=== PATIENT | male | born 1975 | race Caucasian/White ===

== ENCOUNTER 2019-03-06 13:39 | Inpatient (IN) | payer SELFPAY ==
[2019-03-06] MEDS ORDERED: LORazepam 2 MG/ML SDV ONE ×9 (13:42→14:53)
[2019-03-06] MEDS ORDERED: levETIRAcetam 1,000 MG in Sodium Chloride 0.9% 100 ML IV ONE (13:58)
[2019-03-06] MEDS ORDERED: levETIRAcetam 1,500 MG in Sodium Chloride 0.9% 100 ML IV ONE (14:01)
[2019-03-06] MEDS ORDERED: levETIRAcetam 500 MG/5 ML SDV ONE (14:02)
[2019-03-06] MEDS ORDERED: fentaNYL 100 MCG/2 ML SDV ONE (14:19)
--- NOTE | 2019-03-06 14:53 | PCM.PREANE ---
Preanesthetic Assessment - Procedure Proposed Procedure: intubation - Anesthesia/Transfusion/Family Hx Anesthesia History: Unknown Type of Anesthesia Reaction: Unknown Family History of Anesthesia Reaction: No (per family at bedside) Intubation History: Unknown - Review of Systems General: Other (unknown) Pulmonary: No Symptoms Cardiovascular: No Symptoms Gastrointestinal: Other (unknown) Neurological: No Symptoms, Seizure (history) Other: Reports: None (from family ) - Physical Assessment Vital Signs: Last Vital Signs Temp 36.9 C 03/06/19 13:52 Pulse 87 03/06/19 13:52 Resp 18 03/06/19 13:52 BP 149/117 H 03/06/19 13:52 Pulse Ox 88 L 03/06/19 13:52 Height: 1.83 m Weight: 90 kg ASA Class: 3E Mental Status: Other (unresponsive) Dentition: Reports: Normal Dentition (per family ) Thyro-Mental Finger Breadths: 3 Mouth Opening Finger Breadths: 0 Lungs: Clear to Auscultation, Normal Respiratory Effort Cardiovascular: Regular Rate, Regular Rhythm - Lab Values: Laboratory Last Values WBC 7.24 K/mm3 (4.23-9.07) 03/06/19 14:10 RBC 4.16 M/mm3 (4.63-6.08) L 03/06/19 14:10 Hgb 13.6 gm/L (13.7-17.5) L 03/06/19 14:10 Hct 37.3 % (40.1-51.0) L 03/06/19 14:10 MCV 89.7 fl (79.0-92.2) 03/06/19 14:10 MCH 32.7 pg (25.7-32.2) H 03/06/19 14:10 MCHC 36.5 g/dl (32.2-35.5) H 03/06/19 14:10 RDW Std Deviation 38.6 fL (35.1-43.9) 03/06/19 14:10 Plt Count 69 K/mm3 (163-337) L 03/06/19 14:10 MPV 11.0 fl (9.4-12.3) 03/06/19 14:10 Neutrophils % (Manual) 66 % (40-60) H 03/06/19 14:10 Band Neutrophils % 0 % (0-10) 03/06/19 14:10 Lymphocytes % (Manual) 13 % (20-40) L 03/06/19 14:10 Atypical Lymphs % 0 % 03/06/19 14:10 Monocytes % (Manual) 20 % (2-10) H 03/06/19 14:10 Eosinophils % (Manual) 1 % (0.8-7.0) 03/06/19 14:10 Basophils % (Manual) 0 (0.2-1.2) L 03/06/19 14:10 Platelet Estimate Decreased 03/06/19 14:10 Poikilocytosis 1+ slight 03/06/19 14:10 Anisocytosis 1+ slight 03/06/19 14:10 RBC Morph Comment contact person 03/06/19 14:10 PT 12.3 SECONDS (9.7-12.0) H 03/06/19 14:10 INR 1.14 03/06/19 14:10 - Blood Blood Available: No - Anesthesia Plan Pre-Op Medication Ordered: None - Acknowledgements Anesthesia Type Planned: General Anesthesia Pt an Appropriate Candidate for the Planned Anesthesia: Yes Alternatives and Risks of Anesthesia Discussed w Pt/Guardian: Yes Pt/Guardian Understands and Agrees with Anesthesia Plan: Yes PreAnesthesia Questionnaire - CURRENT (IN HOUSE) MEDS Current Meds: Current Medications Discontinued Medications Fentanyl (Sublimaze) Confirm Administered Dose 100 mcg .ROUTE .STK-MED ONE Stop: 03/06/19 14:20 Levetiracetam 1,000 mg/ Sodium (Chloride) 110 mls @ 400 mls/hr IV ONETIME ONE Stop: 03/06/19 14:12 Levetiracetam 1,500 mg/ Sodium (Chloride) 115 mls @ 400 mls/hr IV ONETIME ONE Stop: 03/06/19 14:15 Fosphenytoin Sodium 160 mg.pe/ (Sodium Chloride) 53.2 mls @ 200 mls/hr IV NOW ONE Stop: 03/06/19 14:32 Propofol (Diprivan 100 Ml) Confirm Administered Dose 100 mls @ as directed .ROUTE .STK-MED ONE Stop: 03/06/19 14:16 Levetiracetam (Keppra) Confirm Administered Dose 500 mg .ROUTE .STK-MED ONE Stop: 03/06/19 14:03 Lorazepam (Ativan) Confirm Administered Dose 2 mg .ROUTE .STK-MED ONE Stop: 03/06/19 13:49 Lorazepam (Ativan) Confirm Administered Dose 2 mg .ROUTE .STK-MED ONE Stop: 03/06/19 13:53 Lorazepam (Ativan) Confirm Administered Dose 2 mg .ROUTE .STK-MED ONE Stop: 03/06/19 14:20 Lorazepam (Ativan) Confirm Administered Dose 2 mg .ROUTE .STK-MED ONE Stop: 03/06/19 14:27
[2019-03-06] MEDS ORDERED: Propofol 200 MG/20 ML SDV ONE ×2 (14:58→16:00)
[2019-03-06] MEDS ORDERED: Propofol 1,000 MG/100 ML SDV ONE (15:19)
--- NOTE | 2019-03-06 15:51 | CT ---
Head CT Technique: Multiple axial sections through the brain were obtained. Intravenous contrast was not utilized. Comparison: No prior intracranial imaging is available. Findings: Ventricles along with basal cisterns and sulci over convexities are moderately prominent which are more prominent than usually seen in the patient's of this age. No evidence of intracranial hemorrhage. No midline shift or mass effect is seen. Bone window settings were reviewed which shows a small amount of fluid within the left maxillary sinus. Small retention cyst is noted within the right maxillary sinus measuring 6 mm. Mild to moderate mucosal thickening is seen within the ethmoid sinuses. Increased soft tissue density is noted within both nasal cavities compatible with recent nasogastric tube insertion. No acute calvarial abnormality is seen. Impression: 1. Fluid within the left maxillary sinus as well as soft tissue density within the nasal cavity most likely representing change from recent nasogastric tube insertion. 2. Mucosal thickening within the ethmoids sinus as well as small retention cyst within the right maxillary sinus most likely representing changes of chronic sinusitis. 3. Atrophy which is more prominent than usually seen in a patient of this age, given the patient's history this is compatible with chronic alcohol abuse. 4. No acute intracranial abnormality is identified. No acute calvarial abnormality is seen. Diagnostic code #2
[2019-03-06] MEDS ORDERED: Lidocaine 1% 2 ML SDV ONE (16:00)
[2019-03-06] MEDS ORDERED: Succinylcholine 200 MG/10 ML MDV ONE (16:00)
[2019-03-06] MEDS ORDERED: Lactated Ringers 1,000 ML IV ONE (16:30)
--- NOTE | 2019-03-06 16:43 | EDM.PDOC ---
ED HPI GENERAL MEDICAL PROBLEM - General Chief Complaint: Drug or Alcohol Abuse Stated Complaint: [facility] Time Seen by Provider: 03/06/19 13:39 Source of Information: Reports: EMS, Family History Limitations: Reports: Other (Actively seizing or intubated) - History of Present Illness INITIAL COMMENTS - FREE TEXT/NARRATIVE: 43-year-old male brought in to the emergency room by EMS having seizures. This started 15-20 minutes prior to arriving in the emergency room. EMS arrived he was seizing they gave him a milligram of Ativan which controlled his seizures briefly about the time he arrived to the emergency room he started actively seizing again. Patient has a long history of heavy alcohol use and abuse and has had seizures in the past while not drinking. He also has a history of childhood seizures. Apparently the patient stopped drinking on Thursday. His from [place] dropped him off at his parents house here in [place]. - Related Data Allergies Allergy/AdvReac Type Severity Reaction Status Date / Time No Known Allergies Allergy Verified 03/06/19 16:18 Home Meds: Home Meds . [No Known Home Meds] 03/06/19 [History] Past Medical History Neurological History: Reports: Seizure Psychiatric History: Reports: Addiction Social & Family History - Family History Family Medical History: Noncontributory - Tobacco Use Smoking Status *Q: Current Every Day Smoker Years of Tobacco use: 22 Packs/Tins Daily: 1 - Caffeine Use Caffeine Use: Reports: Coffee, Soda - Alcohol Use Days Per Week of Alcohol Use: 7 Number of Drinks Per Day: 7 Total Drinks Per Week: 49 - Recreational Drug Use Recreational Drug Use: No ED ROS GENERAL - Review of Systems Review Of Systems: Unable To Obtain - Physical Exam Exam: See Below Exam Limited By: Other (Actively seizing) General Appearance: Other (Generalized tonic-clonic seizures) Eye Exam: Bilateral Eye: Other (Pupils perhaps a little smaller than would expect comprehensive eye exam could not be performed) Ears: Normal External Exam, Normal Canal, Normal TMs Nose: Normal Inspection, Normal Mucosa, No Blood Throat/Mouth: Other (Difficult to do with him actively seizing cannot open his mouth he stopped seizing when he was intubated at that point no gross abnormalities noted) Head Exam: Atraumatic, Normocephalic Neck: Normal Inspection, Supple, Non-Tender, Full Range of Motion. No: Lymphadenopathy (L), Lymphadenopathy (R) Respiratory/Chest: No Respiratory Distress, Lungs Clear, Normal Breath Sounds Cardiovascular: Regular Rate, Rhythm, No Edema GI/Abdominal: Normal Bowel Sounds, Soft. No: Rigid Neuro Exam (Abbreviated): Other (To do actively seizing or intubated) Back Exam: Normal Inspection Extremities: Normal Inspection, No Pedal Edema Skin Exam: Warm, Dry, Intact Course - Vital Signs Last Recorded V/S: Last Vital Signs Temp 36.9 C 03/06/19 13:52 Pulse 87 03/06/19 13:52 Resp 18 03/06/19 13:52 BP 149/117 H 03/06/19 13:52 Pulse Ox 88 L 03/06/19 13:52 - Orders/Labs/Meds Orders: Active Orders 24 hr Category Date Time Status RT Ventilator ED, Adult [RC] ASDIRECTED Care 03/06/19 16:24 Active Chest 1V Frontal [CR] Stat Exams 03/06/19 14:24 Taken Medication Orders Albuterol/Ipratropium (Duoneb 3.0-0.5 Mg/3 Ml) 3 ml NEB Q4H PRN PRN Reason: Shortness Of Breath/wheezing Bisacodyl (Dulcolax) 5 mg PO DAILY PRN PRN Reason: Constipation Dextrose/Water (Dextrose 50% In Water) 50 ml IVPUSH ASDIRECTED PRN PRN Reason: Hypoglycemia Docusate Sodium (Colace) 100 mg PO BID PRN PRN Reason: Constipation Hydromorphone HCl (Dilaudid) 0.5 mg IVPUSH Q2H PRN PRN Reason: Pain (severe 7-10) Promethazine HCl 6.25 mg/ (Sodium Chloride) 50.25 mls @ 100 mls/hr IV Q6H PRN PRN Reason: Nausea/Vomiting Potassium Chloride 10 meq/ (Premix) 100 mls @ 100 mls/hr IV Q1H [facility] Stop: 03/06/19 23:59 Potassium Chloride/Dextrose/Sod Cl (D5 Ns With 20 Meq Kcl) 1,000 mls @ 125 mls/ hr IV ASDIRECTED [facility] Last Admin: 03/06/19 18:33 Dose: 125 mls/hr Piperacillin Sod/Tazobactam (Sod 4.5 gm/ Sodium Chloride) 100 mls @ 25 mls/hr IV Q8H [facility] Levofloxacin/Dextrose 750 mg/ (Premix) 150 mls @ 100 mls/hr IV Q24H [facility] Midazolam HCl 50 mg/ Sodium (Chloride) 50 mls @ 1 mls/hr IV TITRATE [facility]; Protocol Propofol (Diprivan 100 Ml) 100 mls @ 20 mls/hr IV TITRATE [facility]; Protocol Ibuprofen (Motrin) 600 mg PO Q6H PRN PRN Reason: Pain (moderate 4-6) Insulin Human Lispro (Humalog) 0 unit SUBCUT Q6H [facility]; Protocol Levetiracetam (Keppra) 500 mg PO BID [facility] Miscellaneous Information (Remove Patch) 1 ea TRDERM DAILY [facility] Nicotine (Habitrol) 21 mg TRDERM DAILY [facility] Ondansetron HCl (Zofran) 4 mg IV Q6H PRN PRN Reason: Nausea/Vomiting Pantoprazole Sodium (Protonix Iv) 40 mg IV Q12HR [facility] Polyethylene Glycol (Miralax) 17 gm PO DAILY PRN PRN Reason: Constipation Senna/Docusate Sodium (Senna Plus) 1 tab PO BID PRN PRN Reason: Constipation Labs: Laboratory Tests 03/06/19 03/06/19 03/06/19 Range/Units 14:10 14:10 14:10 WBC 7.24 (4.23-9.07) K/mm3 RBC 4.16 L (4.63-6.08) M/mm3 Hgb 13.6 L (13.7-17.5) gm/L Hct 37.3 L (40.1-51.0) % MCV 89.7 (79.0-92.2) fl MCH 32.7 H (25.7-32.2) pg MCHC 36.5 H (32.2-35.5) g/dl RDW Std Deviation 38.6 (35.1-43.9) fL Plt Count 69 L (163-337) K/mm3 MPV 11.0 (9.4-12.3) fl Neutrophils % (Manual) 66 H (40-60) % Band Neutrophils % 0 (0-10) % Lymphocytes % (Manual) 13 L (20-40) % Atypical Lymphs % 0 % Monocytes % (Manual) 20 H (2-10) % Eosinophils % (Manual) 1 (0.8-7.0) % Basophils % (Manual) 0 L (0.2-1.2) Platelet Estimate Decreased Poikilocytosis 1+ slight Anisocytosis 1+ slight RBC Morph Comment telecom sales consultant PT 12.3 H (9.7-12.0) SECONDS INR 1.14 Puncture Site ABG pH (7.35-7.45) ABG pCO2 (35.0-45.0) mmHg ABG pO2 (80.0-100.0) mmHg ABG HCO3 (22.0-26.0) meq/L ABG O2 Saturation (96.0-97.0) % ABG Base Excess (-2-2.0) A-a Gradient mmHg O2 Delivery Device FiO2 (21.00-100.00) % Tidal Volume cc PEEP cmH20 Sodium 122 L (136-145) mEq/L Potassium 2.5 L (3.5-5.1) mEq/L Chloride 80 L (98-107) mEq/L Carbon Dioxide 39 H (21-32) mEq/L Anion Gap 5.5 (5-15) BUN 7 (7-18) mg/dL Creatinine 0.9 (0.7-1.3) mg/dL Est Cr Clr Drug Dosing 117.36 mL/min Estimated GFR (MDRD) > 60 (>60) mL/min BUN/Creatinine Ratio 7.8 L (14-18) Glucose 91 (74-106) mg/dL Calcium 8.1 L (8.5-10.1) mg/dL Magnesium (1.8-2.4) mg/dl Total Bilirubin 1.5 H (0.2-1.0) mg/dL AST 67 H (15-37) U/L ALT 67 H (16-63) U/L Alkaline Phosphatase 68 (46-116) U/L Total Protein 6.7 (6.4-8.2) g/dl Albumin 3.0 L (3.4-5.0) g/dl Globulin 3.7 gm/dL Albumin/Globulin Ratio 0.8 L (1-2) Urine Opiates Screen (UWHLJS=286) Ur Buprenorphine Scrn (CUTOFF=10) Ur Oxycodone Screen (EAC6CH=338) Urine Methadone Screen (OMA6NI=909) Ur Propoxyphene Screen (XJOFDC=641) Ur Barbiturates Screen (FPQKPU=058) Ur Tricyclics Screen (HGLYCE=807) Ur Phencyclidine Scrn (CUTOFF=25) Ur Amphetamine Screen (VEZVAJ=024) U Methamphetamines Scrn (JOCMXQ=962) U Benzodiazepines Scrn (KJQCJJ=534) U Cocaine Metab Screen (DUDIIC=730) U Marijuana (THC) Screen (CUTOFF=50) Ethyl Alcohol 0.00 (0.00) gm% 03/06/19 03/06/19 03/06/19 Range/Units 14:10 15:00 15:00 WBC (4.23-9.07) K/mm3 RBC (4.63-6.08) M/mm3 Hgb (13.7-17.5) gm/L Hct (40.1-51.0) % MCV (79.0-92.2) fl MCH (25.7-32.2) pg MCHC (32.2-35.5) g/dl RDW Std Deviation (35.1-43.9) fL Plt Count (163-337) K/mm3 MPV (9.4-12.3) fl Neutrophils % (Manual) (40-60) % Band Neutrophils % (0-10) % Lymphocytes % (Manual) (20-40) % Atypical Lymphs % % Monocytes % (Manual) (2-10) % Eosinophils % (Manual) (0.8-7.0) % Basophils % (Manual) (0.2-1.2) Platelet Estimate Poikilocytosis Anisocytosis RBC Morph Comment PT (9.7-12.0) SECONDS INR Puncture Site Rt radial ABG pH 7.45 (7.35-7.45) ABG pCO2 53.2 H (35.0-45.0) mmHg ABG pO2 252.0 H* (80.0-100.0) mmHg ABG HCO3 36.1 H (22.0-26.0) meq/L ABG O2 Saturation 99.5 H (96.0-97.0) % ABG Base Excess 10.6 H (-2-2.0) A-a Gradient 110 mmHg O2 Delivery Device Ventilator FiO2 60.00 (21.00-100.00) % Tidal Volume 500.0 cc PEEP 5.0 cmH20 Sodium (136-145) mEq/L Potassium (3.5-5.1) mEq/L Chloride (98-107) mEq/L Carbon Dioxide (21-32) mEq/L Anion Gap (5-15) BUN (7-18) mg/dL Creatinine (0.7-1.3) mg/dL Est Cr Clr Drug Dosing mL/min Estimated GFR (MDRD) (>60) mL/min BUN/Creatinine Ratio (14-18) Glucose (74-106) mg/dL Calcium (8.5-10.1) mg/dL Magnesium 1.7 L (1.8-2.4) mg/dl Total Bilirubin (0.2-1.0) mg/dL AST (15-37) U/L ALT (16-63) U/L Alkaline Phosphatase (46-116) U/L Total Protein (6.4-8.2) g/dl Albumin (3.4-5.0) g/dl Globulin gm/dL Albumin/Globulin Ratio (1-2) Urine Opiates Screen Negative (OAAYZT=983) Ur Buprenorphine Scrn Negative (CUTOFF=10) Ur Oxycodone Screen Negative (BGI0ES=190) Urine Methadone Screen Negative (KLT5JE=648) Ur Propoxyphene Screen Negative (VVLRIO=746) Ur Barbiturates Screen Negative (FIMZXL=101) Ur Tricyclics Screen Negative (XYZVTQ=020) Ur Phencyclidine Scrn Negative (CUTOFF=25) Ur Amphetamine Screen Negative (ZFQCKR=485) U Methamphetamines Scrn Negative (EEFDEZ=458) U Benzodiazepines Scrn Negative (INHNCG=931) U Cocaine Metab Screen Negative (HSMVDP=679) U Marijuana (THC) Screen Negative (CUTOFF=50) Ethyl Alcohol (0.00) gm% Meds: Medications Generic Name Dose Route Start Last Admin Trade Name Freq PRN Reason Stop Dose Admin Albuterol/Ipratropium 3 ml 03/06/19 17:57 Duoneb 3.0-0.5 Mg/3 Ml NEB Q4H PRN Shortness Of Breath/wheezing Bisacodyl 5 mg 03/06/19 17:57 Dulcolax PO DAILY PRN Constipation Dextrose/Water 50 ml 03/06/19 18:01 Dextrose 50% In Water IVPUSH ASDIRECTED PRN Hypoglycemia Docusate Sodium 100 mg 03/06/19 17:57 Colace PO BID PRN Constipation Hydromorphone HCl 0.5 mg 03/06/19 17:57 Dilaudid IVPUSH Q2H PRN Pain (severe 7-10) Promethazine HCl 6.25 mg/ 50.25 mls @ 100 mls/hr 03/06/19 17:57 Sodium Chloride IV Q6H PRN Nausea/Vomiting Potassium Chloride 10 meq/ 100 mls @ 100 mls/hr 03/06/19 18:00 Premix IV 03/06/19 23:59 Q1H [facility] Potassium Chloride/Dextrose/Sod Cl 1,000 mls @ 125 mls/hr 03/06/19 18:15 18:33 D5 Ns With 20 Meq Kcl IV 125 mls/hr ASDIRECTED [facility] Administration Piperacillin Sod/Tazobactam 100 mls @ 25 mls/hr 03/07/19 02:00 Sod 4.5 gm/ Sodium Chloride IV Q8H [facility] Levofloxacin/Dextrose 750 mg/ 150 mls @ 100 mls/hr 03/06/19 18:00 Premix IV Q24H [facility] Midazolam HCl 50 mg/ Sodium 50 mls @ 1 mls/hr 03/06/19 18:30 Chloride IV TITRATE [facility] Protocol 1 MG/HR Propofol 100 mls @ 20 mls/hr 03/06/19 15:19 Diprivan 100 Ml IV TITRATE [facility] Protocol Ibuprofen 600 mg 03/06/19 17:57 Motrin PO Q6H PRN Pain (moderate 4-6) Insulin Human Lispro 0 unit 03/06/19 18:00 Humalog SUBCUT Q6H [facility] Protocol Levetiracetam 500 mg 03/07/19 09:00 Keppra PO BID [facility] Miscellaneous Information 1 ea 03/07/19 09:00 Remove Patch TRDERM DAILY [facility] Nicotine 21 mg 03/07/19 09:00 Habitrol TRDERM DAILY [facility] Ondansetron HCl 4 mg 03/06/19 17:57 Zofran IV Q6H PRN Nausea/Vomiting Pantoprazole Sodium 40 mg 03/06/19 21:00 Protonix Iv IV Q12HR [facility] Polyethylene Glycol 17 gm 03/06/19 17:57 Miralax PO DAILY PRN Constipation Senna/Docusate Sodium 1 tab 03/06/19 17:57 Senna Plus PO BID PRN Constipation Discontinued Medications Generic Name Dose Route Start Last Admin Trade Name Freq PRN Reason Stop Dose Admin Enoxaparin Sodium 30 mg 03/07/19 09:00 Lovenox SUBCUT DAILY [facility] Levetiracetam 1,000 mg/ Sodium 110 mls @ 400 mls/hr 03/06/19 13:58 Chloride IV 03/06/19 14:12 ONETIME ONE Levetiracetam 1,500 mg/ Sodium 115 mls @ 400 mls/hr 03/06/19 14:01 Chloride IV 03/06/19 14:15 ONETIME ONE Fosphenytoin Sodium 160 mg.pe/ 53.2 mls @ 200 mls/hr 03/06/19 14:17 03/06/19 15:50 Sodium Chloride IV 03/06/19 14:32 200 mls/hr NOW ONE Administration Fosphenytoin Sodium 1,440 mg. 128.8 mls @ 257 mls/hr 03/06/19 15:30 03/06/19 16:22 pe/ Sodium Chloride IV 03/06/19 16:00 257 mls/hr ONETIME ONE Administration Lactated Ringer's 1,000 mls @ 999 mls/hr 03/06/19 16:30 03/06/19 16:34 Ringers, Lactated IV 03/06/19 17:30 999 mls/hr .BOLUS ONE Administration Piperacillin Sod/Tazobactam 100 mls @ 200 mls/hr 03/06/19 18:30 Sod 4.5 gm/ Sodium Chloride IV 03/06/19 18:59 ONETIME ONE Propofol Confirm 03/06/19 19:13 03/06/19 19:22 Diprivan 100 Ml Administered 03/06/19 19:14 28.8 mls/hr Dose Administration 100 mls @ as directed .ROUTE .[facility] - Re-Assessments/Exams Free Text/Narrative Re-Assessment/Exam: 03/06/19 16:34 43-year-old male presents emergency room actively seizing. This started roughly half hour or so before he arrived he was given a milligram of Ativan by EMS in seizures apparently stopped and then about the time he arrived here he was still seizing. He was given another milligram of Ativan cookie followed by a second milligram for a total of 3 mg including the one he had by EMS and continued seizing was given 2 mg 5 minutes after this and another 5 mg for a total of 6 mg here plus a 1 in the ambulance. Keppra 1500 mg was started at 1400 he was given 2 more milligrams of Ativan at 1421 patient was pretreated per anesthesia with lidocaine and propofol seizures resolved with the propofol he was given 120 mg of succinylcholine achieving appropriate response he was intubated per anesthesia. He was started on a propofol drip 80 mics per kilo. He did have a breakthrough seizure around 1500 he was given 40 mg propofol push and did okay until 1519 broke through again received 20 mg and we increased the profile drip to 100 mics per kilo per minute at this point most of the fosphenytoin is infused and we did decrease the rate of the propofol to 80 mics per kilo per minute and we will continue to decrease as this is tolerated. Head CT unremarkable chemistries and alcohol still pending. Case discussed with Dr. Baires who will accept the patient to the ICU. The patient seized for at least an hour before this could be firmly controlled with Ativan high doses Keppra did not wait to get the Keppra completely in and there were some delays to the availability of the fosphenytoin. He was intubated received a large dose of propofol which seemed to control his seizures to some degree. Departure - Departure Time of Disposition: 16:43 Disposition: Admitted As Inpatient 67 Clinical Impression: Alcohol withdrawal syndrome, Seizure due to alcohol withdrawal - Discharge Information - My Orders Last 24 Hours: My Active Orders 03/06/19 14:24 Chest 1V Frontal [CR] Stat 03/06/19 16:24 RT Ventilator ED, Adult [RC] ASDIRECTED - Assessment/Plan Last 24 Hours: My Active Orders 03/06/19 14:24 Chest 1V Frontal [CR] Stat 03/06/19 16:24 RT Ventilator ED, Adult [RC] ASDIRECTED
--- NOTE | 2019-03-06 17:35 | PCM.HP.2 ---
H&P History of Present Illness - General Date of Service: 03/06/19 Admit Problem/Dx: Admission Diagnosis/Problem Admission Diagnosis/Problem Alcohol withdrawal seizure Source of Information: Family, Provider, RN Notes Reviewed History Limitations: Reports: Altered Mental Status - History of Present Illness Initial Comments - Free Text/Narative: This is a 43 yo white male with past medical hx/o Chronic alcoholism who was brought in by EMS due to generalized weakness, falls and not been eating. 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 Patient drinks heavily, about 12 pack of draft beers a day. He also smokes but no hx/o illicit drug use. Patient was up all night and by 3:30 this morning he was falling and too weak to get up per family. His family was planning to bring him over and get evaluated in ED but refused it so they called for help. EMS arrived at 1300, and as he stood up and walked near to them, he collapsed and passed out then started seizing. His episode lasted about an hour and persisted even when he made it to the ER. He received multiple Ativan for abortive seizures but it did not work. Dr. Gr asked for recommendations and I advised him to intubate patient and use Precedex, Ketamine, Versed plus Keppra/Phenytoin. Patient carries a hx/o several DUIs. He is currently not driving and does not have a fence post driver's license to operate a vehicle. His last chemical inpatient treatment was about 10 years ago in [place]. His initial work up in ED shows a CBC remarkable for RBC of 4.16, Hgb of 13.6, Hct of 37.3, MCH of 32.7, MCHC of 36.5, Platelet of 69, Neutrophils of 66%, Lymphocytes of 13%, and Monocytes of 20%. His Chemistry is significant for Na of 122, K of 2.5, Cl of 80, CO2 of 39, CA of 8.1, Mg of 1.7, Total Bilirubin of 1.5, AST/ALT of 67, and Albumin of 3.0. UDS and GAURI levels are negative. Patient had persistent seizures in ED and therefore he was intubated and placed on mechanical ventilation. - Related Data Allergies/Adverse Reactions: Allergies Allergy/AdvReac Type Severity Reaction Status Date / Time No Known Allergies Allergy Verified 03/06/19 16:18 Home Medications: Home Meds . [No Known Home Meds] 03/06/19 [History] Past Medical History Neurological History: Reports: Seizure Psychiatric History: Reports: Addiction Social & Family History - Family History Family Medical History: Noncontributory - Tobacco Use Smoking Status *Q: Current Every Day Smoker Years of Tobacco use: 22 Packs/Tins Daily: 1 - Caffeine Use Caffeine Use: Reports: Coffee, Soda - Alcohol Use Days Per Week of Alcohol Use: 7 Number of Drinks Per Day: 7 Total Drinks Per Week: 49 - Recreational Drug Use Recreational Drug Use: No H&P Review of Systems - Review of Systems: Review Of Systems: Unable To Obtain Free Text/Narrative: Unable to Obtain, he is sedated and intubated in mechanical ventilation Exam - Exam Exam: See Below - Vital Signs Vital Signs: Last Vital Signs Temp 36.9 C 03/06/19 13:52 Pulse 87 03/06/19 13:52 Resp 18 03/06/19 13:52 BP 149/117 H 03/06/19 13:52 Pulse Ox 88 L 03/06/19 13:52 Weight: 90 kg - Exam General: Obtunded HEENT: Conjunctiva Clear, Nares Patent, Normal Nasal Septum, Pupils Equal, Pupils Reactive Neck: Supple Lungs: Normal Respiratory Effort, Other (mechanical vent) Cardiovascular: Regular Rate, Regular Rhythm GI/Abdominal Exam: Normal Bowel Sounds, Soft, Non-Tender, No Organomegaly, No Distention, No Abnormal Bruit (Male) Exam: Other (indwelling arroyo catheter) Rectal (Males) Exam: Deferred Back Exam: Other (deferred) Extremities: Normal Range of Motion, No Pedal Edema, Normal Capillary Refill Peripheral Pulses: 2+: Posterior Tibial (L), Posterior Tibial (R), Dorsalis Pedis (L), Dorsalis Pedis (R) Skin: Warm, Dry, Intact. No: Ecchymosis, Wound, Incision Neuro Extensive - Mental Status: Other (not appropriate) Neuro Extensive - Motor, Sensory, Reflexes: Other (not appropriate) Psychiatric: Other (sedated and intubated on mechanical ventilation) - Patient Data Lab Results Last 24 hrs: Laboratory Results - last 24 hr 03/06/19 03/06/19 03/06/19 Range/Units 14:10 14:10 14:10 WBC 7.24 (4.23-9.07) K/mm3 RBC 4.16 L (4.63-6.08) M/mm3 Hgb 13.6 L (13.7-17.5) gm/L Hct 37.3 L (40.1-51.0) % MCV 89.7 (79.0-92.2) fl MCH 32.7 H (25.7-32.2) pg MCHC 36.5 H (32.2-35.5) g/dl RDW Std Deviation 38.6 (35.1-43.9) fL Plt Count 69 L (163-337) K/mm3 MPV 11.0 (9.4-12.3) fl Neutrophils % (Manual) 66 H (40-60) % Band Neutrophils % 0 (0-10) % Lymphocytes % (Manual) 13 L (20-40) % Atypical Lymphs % 0 % Monocytes % (Manual) 20 H (2-10) % Eosinophils % (Manual) 1 (0.8-7.0) % Basophils % (Manual) 0 L (0.2-1.2) Platelet Estimate Decreased Poikilocytosis 1+ slight Anisocytosis 1+ slight RBC 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 PT 12.3 H (9.7-12.0) SECONDS INR 1.14 Puncture Site ABG pH (7.35-7.45) ABG pCO2 (35.0-45.0) mmHg ABG pO2 (80.0-100.0) mmHg ABG HCO3 (22.0-26.0) meq/L ABG O2 Saturation (96.0-97.0) % ABG Base Excess (-2-2.0) A-a Gradient mmHg O2 Delivery Device FiO2 (21.00-100.00) % Tidal Volume cc PEEP cmH20 Sodium 122 L (136-145) mEq/L Potassium 2.5 L (3.5-5.1) mEq/L Chloride 80 L (98-107) mEq/L Carbon Dioxide 39 H (21-32) mEq/L Anion Gap 5.5 (5-15) BUN 7 (7-18) mg/dL Creatinine 0.9 (0.7-1.3) mg/dL Est Cr Clr Drug Dosing 117.36 mL/min Estimated GFR (MDRD) > 60 (>60) mL/min BUN/Creatinine Ratio 7.8 L (14-18) Glucose 91 (74-106) mg/dL Calcium 8.1 L (8.5-10.1) mg/dL Total Bilirubin 1.5 H (0.2-1.0) mg/dL AST 67 H (15-37) U/L ALT 67 H (16-63) U/L Alkaline Phosphatase 68 (46-116) U/L Total Protein 6.7 (6.4-8.2) g/dl Albumin 3.0 L (3.4-5.0) g/dl Globulin 3.7 gm/dL Albumin/Globulin Ratio 0.8 L (1-2) Urine Opiates Screen (HKJEHS=206) Ur Buprenorphine Scrn (CUTOFF=10) Ur Oxycodone Screen (JKO7YZ=534) Urine Methadone Screen (XIV4OB=237) Ur Propoxyphene Screen (BSNDSI=009) Ur Barbiturates Screen (ELSUAL=839) Ur Tricyclics Screen (PCHZPZ=920) Ur Phencyclidine Scrn (CUTOFF=25) Ur Amphetamine Screen (TEXQXB=144) U Methamphetamines Scrn (QNCVRQ=939) U Benzodiazepines Scrn (QOTRUG=671) U Cocaine Metab Screen (VAGUHM=227) U Marijuana (THC) Screen (CUTOFF=50) Ethyl Alcohol 0.00 (0.00) gm% 03/06/19 03/06/19 Range/Units 15:00 15:00 WBC (4.23-9.07) K/mm3 RBC (4.63-6.08) M/mm3 Hgb (13.7-17.5) gm/L Hct (40.1-51.0) % MCV (79.0-92.2) fl MCH (25.7-32.2) pg MCHC (32.2-35.5) g/dl RDW Std Deviation (35.1-43.9) fL Plt Count (163-337) K/mm3 MPV (9.4-12.3) fl Neutrophils % (Manual) (40-60) % Band Neutrophils % (0-10) % Lymphocytes % (Manual) (20-40) % Atypical Lymphs % % Monocytes % (Manual) (2-10) % Eosinophils % (Manual) (0.8-7.0) % Basophils % (Manual) (0.2-1.2) Platelet Estimate Poikilocytosis Anisocytosis RBC Morph Comment PT (9.7-12.0) SECONDS INR Puncture Site Rt radial ABG pH 7.45 (7.35-7.45) ABG pCO2 53.2 H (35.0-45.0) mmHg ABG pO2 252.0 H* (80.0-100.0) mmHg ABG HCO3 36.1 H (22.0-26.0) meq/L ABG O2 Saturation 99.5 H (96.0-97.0) % ABG Base Excess 10.6 H (-2-2.0) A-a Gradient 110 mmHg O2 Delivery Device Ventilator FiO2 60.00 (21.00-100.00) % Tidal Volume 500.0 cc PEEP 5.0 cmH20 Sodium (136-145) mEq/L Potassium (3.5-5.1) mEq/L Chloride (98-107) mEq/L Carbon Dioxide (21-32) mEq/L Anion Gap (5-15) BUN (7-18) mg/dL Creatinine (0.7-1.3) mg/dL Est Cr Clr Drug Dosing mL/min Estimated GFR (MDRD) (>60) mL/min BUN/Creatinine Ratio (14-18) Glucose (74-106) mg/dL Calcium (8.5-10.1) mg/dL Total Bilirubin (0.2-1.0) mg/dL AST (15-37) U/L ALT (16-63) U/L Alkaline Phosphatase (46-116) U/L Total Protein (6.4-8.2) g/dl Albumin (3.4-5.0) g/dl Globulin gm/dL Albumin/Globulin Ratio (1-2) Urine Opiates Screen Negative (DBWAHZ=375) Ur Buprenorphine Scrn Negative (CUTOFF=10) Ur Oxycodone Screen Negative (FSD7DE=332) Urine Methadone Screen Negative (VCC6WX=276) Ur Propoxyphene Screen Negative (QPDFNT=613) Ur Barbiturates Screen Negative (NHQQXM=606) Ur Tricyclics Screen Negative (BKCRFW=589) Ur Phencyclidine Scrn Negative (CUTOFF=25) Ur Amphetamine Screen Negative (HSHJYP=382) U Methamphetamines Scrn Negative (FRUPMG=142) U Benzodiazepines Scrn Negative (QDJUIC=988) U Cocaine Metab Screen Negative (PAJXTE=655) U Marijuana (THC) Screen Negative (CUTOFF=50) Ethyl Alcohol (0.00) gm% Result Diagrams: 03/07/19 04:37 03/07/19 04:37 Problem List Initiated/Reviewed/Updated: Yes Orders Last 24hrs: Active Orders 24 hr Category Date Time Status Patient Status [ADT] Stat ADT 03/06/19 17:20 Active RT Ventilator ED, Adult [RC] ASDIRECTED Care 03/06/19 16:24 Active Chest 1V Frontal [CR] Stat Exams 03/06/19 14:24 Taken Assessment/Plan Comment:: Assessment: Acute: Mechanical Ventilation - 2/2 Alcohol Related Status Epilepticus - Failure to Protect Airway - IV Propofol and Versed - RASS of -4 - IV antibiotics for possible aspiration - RT to assess and treat Status Epilepticus - Has had hx/o alcohol related seizures in the past per family - He was seizing on his way to ED and even after he received multiple doses of Ativan in ED - Had gotten IV Keppra and Fosphenytoin - No on IV Propofol and Versed with RASS of -4 ETOH Withdrawal Symptoms - Drinks heavily with > 12 pack a day - Unclear about his last drink; GAURI is 0 - 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 - Risk factors: Chronic Alcoholism - CIWAA Protocol for Ativan/Versed (mechanical ventilation) - MVI, Folic Acid and Thiamine - IV fluids for hydration Hyponatremia/Hypokalemia/Hypomagnesemia/Hypocalcemia - Na of 122; K of 2.5; Mg of 1.5; Ca of 8.1 - 2/2 Poor nutritional status from Chronic Alcoholism - Replete and monitor Nicotine Dependence - Smokes cigarettes a pack a day - Nicotine Patch daily Chronic: Chronic ETOH Dependence, and Alcohol Related Seizures Plan: Admit to ICU Mechanical Vent with RASS of -4 Seizure/Fall Precautions IV D5WNS plus KCl for hydration DVT/GI Prophylaxis: PPI and SCDs SAC/Tele-psych consult SW/CM for d/c planning Additional orders as above Prognosis is guarded Critical care time spent: 45 mins Updated family at bedside about his diagnoses, lab results and treatment plan
[2019-03-06] MEDS ORDERED: HYDROmorphone 0.5 MG/0.5 ML Syringe IVPUSH PRN (17:57)
[2019-03-06] MEDS ORDERED: Polyethylene Glycol 3350 Powder 17 GM Packet PO PRN (17:57)
[2019-03-06] MEDS ORDERED: Bisacodyl 5 MG Tab PO PRN (17:57)
[2019-03-06] MEDS ORDERED: Promethazine 6.25 MG in Sodium Chloride 0.9% 50 ML IV PRN (17:57)
[2019-03-06] MEDS ORDERED: Ondansetron 4 MG/2 ML SDV IV PRN (17:57)
[2019-03-06] MEDS ORDERED: Albuterol/Ipratropium 3.0-0.5 MG/3 ML Neb Soln NEB PRN (17:57)
[2019-03-06] MEDS ORDERED: Docusate Sodium 100 MG Cap PO PRN (17:57)
[2019-03-06] MEDS ORDERED: Levofloxacin/Dextrose 5%-Water 750 MG in Premix Bag 1 BAG IV SCH (18:00)
[2019-03-06] MEDS ORDERED: 50% Dextrose in Water 50 ML Syringe IVPUSH PRN (18:01)
[2019-03-06] MEDS ORDERED: Midazolam 5 MG/ML 10 ML MDV ONE (18:29)
[2019-03-06] MEDS ORDERED: Piperacillin/Tazobactam 4.5 GM in Sodium Chloride 0.9% 100 ML IV ONE ×2 (18:30→22:00)
[2019-03-06] MEDS: Dextrose 5%-0.9% NaCl with KCl 1,000 ML IV SCH (18:33)
[2019-03-06] MEDS ORDERED: Sodium Chloride 0.9% 50 ML ONE (18:58)
[2019-03-06] MEDS ORDERED: Potassium Chloride 100 ML ONE (20:20)
[2019-03-06] MEDS: Potassium Chloride 10 MEQ in Premix Bag 1 BAG IV SCH ×4 (20:25→23:21)
[2019-03-06] MEDS: Insulin Lispro 100 Units/ML 3 ML Vial SUBCUT SCH (20:26)
[2019-03-06] MEDS: Midazolam 50 MG in Sodium Chloride 0.9% 40 ML IV SCH (20:29)
[2019-03-06] MEDS: Pantoprazole 40 MG Vial IV SCH (21:37)
[2019-03-06] MEDS ORDERED: Thiamine 200 MG in Sodium Chloride 0.9% 100 ML IV ONE (22:43)
[2019-03-06] MEDS: Levofloxacin/Dextrose 5%-Water 750 MG in Premix Bag 1 BAG IV SCH (22:45)
[2019-03-07] MEDS: Potassium Chloride 10 MEQ in Premix Bag 1 BAG IV SCH ×8 (00:39→14:08)
[2019-03-07] MEDS: Insulin Lispro 100 Units/ML 3 ML Vial SUBCUT SCH ×4 (01:35→18:19)
[2019-03-07] MEDS ORDERED: Piperacillin/Tazobactam 4.5 GM in Sodium Chloride 0.9% 100 ML IV SCH ×2 (02:00→06:00)
[2019-03-07] MEDS ORDERED: Thiamine 200 MG in Sodium Chloride 0.9% 100 ML IV ONE (02:00)
[2019-03-07] MEDS: Dextrose 5%-0.9% NaCl with KCl 1,000 ML IV SCH ×3 (02:08→18:35)
[2019-03-07] MEDS ORDERED: Magnesium Sulfate/Water 2 GM in Premix Bag 1 BAG IV ONE (03:48)
[2019-03-07] MEDS: Midazolam 50 MG in Sodium Chloride 0.9% 40 ML IV SCH ×2 (06:18→16:30)
--- NOTE | 2019-03-07 07:00 | CR ---
Chest: Portable supine view of the chest was obtained. Comparison: No prior chest x-ray. Heart size is normal. Tortuous thoracic aorta is seen. Endotracheal tube is seen with tip lying at the mid to lower level of the clavicles which is felt to be satisfactory in position. Tip of nasogastric tube lies within the stomach. Lungs are clear with no acute parenchymal change. Bony structures are grossly intact. Impression: 1. Satisfactory position of endotracheal tube and nasogastric tube. 2. Nothing acute is otherwise seen on portable supine chest x-ray. Diagnostic code #3
--- NOTE | 2019-03-07 07:15 | PCM.PN ---
- General Info Date of Service: 03/07/19 Admission Dx/Problem (Free Text): Admission Diagnosis/Problem Admission Diagnosis/Problem Alcohol withdrawal seizure Subjective Update: Follow Up Functional Status: Reports: Pain Controlled, Urinating - Review of Systems General: Denies: Fever, Chills HEENT: Reports: No Symptoms Pulmonary: Reports: No Symptoms Cardiovascular: Reports: No Symptoms Systems Review Comment:: Unable to obtain ROS, he is sedated and intubated on mechanical vent - Patient Data Vitals - Most Recent: Last Vital Signs Temp 36.1 C 03/07/19 04:00 Pulse 62 03/07/19 05:01 Resp 12 03/07/19 05:55 BP 156/88 H 03/07/19 05:01 Pulse Ox 98 03/07/19 05:55 Weight - Most Recent: 90 kg I&O - Last 24 Hours: Intake & Output 03/06/19 03/07/19 03/07/19 22:59 06:59 14:59 Intake Total 2979 Output Total 300 700 Balance -300 2279 Lab Results Last 24 Hours: Laboratory Results - last 24 hr 03/06/19 03/06/19 03/06/19 Range/Units 14:10 14:10 14:10 WBC 7.24 (4.23-9.07) K/mm3 RBC 4.16 L (4.63-6.08) M/mm3 Hgb 13.6 L (13.7-17.5) gm/L Hct 37.3 L (40.1-51.0) % MCV 89.7 (79.0-92.2) fl MCH 32.7 H (25.7-32.2) pg MCHC 36.5 H (32.2-35.5) g/dl RDW Std Deviation 38.6 (35.1-43.9) fL Plt Count 69 L (163-337) K/mm3 MPV 11.0 (9.4-12.3) fl Neut % (Auto) (34.0-67.9) % Lymph % (Auto) (21.8-53.1) % [place] % (Auto) (5.3-12.2) % Eos % (Auto) (0.8-7.0) Baso % (Auto) (0.1-1.2) % Neut # (Auto) (1.78-5.38) K/mm3 Lymph # (Auto) (1.32-3.57) K/mm3 [place] # (Auto) (0.30-0.82) K/mm3 Eos # (Auto) (0.04-0.54) K/mm3 Baso # (Auto) (0.01-0.08) K/mm3 Neutrophils % (Manual) 66 H (40-60) % Band Neutrophils % 0 (0-10) % Lymphocytes % (Manual) 13 L (20-40) % Atypical Lymphs % 0 % Monocytes % (Manual) 20 H (2-10) % Eosinophils % (Manual) 1 (0.8-7.0) % Basophils % (Manual) 0 L (0.2-1.2) Manual Slide Review Platelet Estimate Decreased Poikilocytosis 1+ slight Anisocytosis 1+ slight RBC Morph Comment fry cook PT 12.3 H (9.7-12.0) SECONDS INR 1.14 Puncture Site ABG pH (7.35-7.45) ABG pCO2 (35.0-45.0) mmHg ABG pO2 (80.0-100.0) mmHg ABG HCO3 (22.0-26.0) meq/L ABG O2 Saturation (96.0-97.0) % ABG Base Excess (-2-2.0) Aaron Test A-a Gradient mmHg O2 Delivery Device FiO2 (21.00-100.00) % Tidal Volume cc PEEP cmH20 Sodium 122 L (136-145) mEq/L Potassium 2.5 L (3.5-5.1) mEq/L Chloride 80 L (98-107) mEq/L Carbon Dioxide 39 H (21-32) mEq/L Anion Gap 5.5 (5-15) BUN 7 (7-18) mg/dL Creatinine 0.9 (0.7-1.3) mg/dL Est Cr Clr Drug Dosing 117.36 mL/min Estimated GFR (MDRD) > 60 (>60) mL/min BUN/Creatinine Ratio 7.8 L (14-18) Glucose 91 (74-106) mg/dL POC Glucose (70-105) mg/dL Calcium 8.1 L (8.5-10.1) mg/dL Magnesium (1.8-2.4) mg/dl Total Bilirubin 1.5 H (0.2-1.0) mg/dL AST 67 H (15-37) U/L ALT 67 H (16-63) U/L Alkaline Phosphatase 68 (46-116) U/L Total Protein 6.7 (6.4-8.2) g/dl Albumin 3.0 L (3.4-5.0) g/dl Globulin 3.7 gm/dL Albumin/Globulin Ratio 0.8 L (1-2) Vitamin B12 (193-986) pg/ml Folate (8.6-58.9) ng/mL Urine Opiates Screen (FOKINW=790) Ur Buprenorphine Scrn (CUTOFF=10) Ur Oxycodone Screen (DCU1SS=297) Urine Methadone Screen (SRZ3TF=953) Ur Propoxyphene Screen (VENOEK=182) Ur Barbiturates Screen (ODRGOR=384) Ur Tricyclics Screen (IUVJTR=128) Ur Phencyclidine Scrn (CUTOFF=25) Ur Amphetamine Screen (MEPHJQ=895) U Methamphetamines Scrn (IDBIKW=645) U Benzodiazepines Scrn (UIGPGR=673) U Cocaine Metab Screen (KVCCJN=181) U Marijuana (THC) Screen (CUTOFF=50) Ethyl Alcohol 0.00 (0.00) gm% 03/06/19 03/06/19 03/06/19 Range/Units 14:10 15:00 15:00 WBC (4.23-9.07) K/mm3 RBC (4.63-6.08) M/mm3 Hgb (13.7-17.5) gm/L Hct (40.1-51.0) % MCV (79.0-92.2) fl MCH (25.7-32.2) pg MCHC (32.2-35.5) g/dl RDW Std Deviation (35.1-43.9) fL Plt Count (163-337) K/mm3 MPV (9.4-12.3) fl Neut % (Auto) (34.0-67.9) % Lymph % (Auto) (21.8-53.1) % [place] % (Auto) (5.3-12.2) % Eos % (Auto) (0.8-7.0) Baso % (Auto) (0.1-1.2) % Neut # (Auto) (1.78-5.38) K/mm3 Lymph # (Auto) (1.32-3.57) K/mm3 [place] # (Auto) (0.30-0.82) K/mm3 Eos # (Auto) (0.04-0.54) K/mm3 Baso # (Auto) (0.01-0.08) K/mm3 Neutrophils % (Manual) (40-60) % Band Neutrophils % (0-10) % Lymphocytes % (Manual) (20-40) % Atypical Lymphs % % Monocytes % (Manual) (2-10) % Eosinophils % (Manual) (0.8-7.0) % Basophils % (Manual) (0.2-1.2) Manual Slide Review Platelet Estimate Poikilocytosis Anisocytosis RBC Morph Comment PT (9.7-12.0) SECONDS INR Puncture Site Rt radial ABG pH 7.45 (7.35-7.45) ABG pCO2 53.2 H (35.0-45.0) mmHg ABG pO2 252.0 H* (80.0-100.0) mmHg ABG HCO3 36.1 H (22.0-26.0) meq/L ABG O2 Saturation 99.5 H (96.0-97.0) % ABG Base Excess 10.6 H (-2-2.0) Aaron Test A-a Gradient 110 mmHg O2 Delivery Device Ventilator FiO2 60.00 (21.00-100.00) % Tidal Volume 500.0 cc PEEP 5.0 cmH20 Sodium (136-145) mEq/L Potassium (3.5-5.1) mEq/L Chloride (98-107) mEq/L Carbon Dioxide (21-32) mEq/L Anion Gap (5-15) BUN (7-18) mg/dL Creatinine (0.7-1.3) mg/dL Est Cr Clr Drug Dosing mL/min Estimated GFR (MDRD) (>60) mL/min BUN/Creatinine Ratio (14-18) Glucose (74-106) mg/dL POC Glucose (70-105) mg/dL Calcium (8.5-10.1) mg/dL Magnesium 1.7 L (1.8-2.4) mg/dl Total Bilirubin (0.2-1.0) mg/dL AST (15-37) U/L ALT (16-63) U/L Alkaline Phosphatase (46-116) U/L Total Protein (6.4-8.2) g/dl Albumin (3.4-5.0) g/dl Globulin gm/dL Albumin/Globulin Ratio (1-2) Vitamin B12 (193-986) pg/ml Folate (8.6-58.9) ng/mL Urine Opiates Screen Negative (ZMOGLM=100) Ur Buprenorphine Scrn Negative (CUTOFF=10) Ur Oxycodone Screen Negative (EBI3NV=741) Urine Methadone Screen Negative (MOJ6BO=741) Ur Propoxyphene Screen Negative (TKMDFB=334) Ur Barbiturates Screen Negative (LEFRDO=673) Ur Tricyclics Screen Negative (PVMQKB=128) Ur Phencyclidine Scrn Negative (CUTOFF=25) Ur Amphetamine Screen Negative (HVFFDL=681) U Methamphetamines Scrn Negative (VZWVSG=053) U Benzodiazepines Scrn Negative (HBIVOO=428) U Cocaine Metab Screen Negative (BLMSCE=403) U Marijuana (THC) Screen Negative (CUTOFF=50) Ethyl Alcohol (0.00) gm% 03/07/19 03/07/19 03/07/19 Range/Units 00:11 04:37 04:37 WBC 5.79 (4.23-9.07) K/mm3 RBC 3.89 L (4.63-6.08) M/mm3 Hgb 12.9 L (13.7-17.5) gm/L Hct 36.0 L (40.1-51.0) % MCV 92.5 H (79.0-92.2) fl MCH 33.2 H (25.7-32.2) pg MCHC 35.8 H (32.2-35.5) g/dl RDW Std Deviation 40.9 (35.1-43.9) fL Plt Count 62 L (163-337) K/mm3 MPV 11.9 (9.4-12.3) fl Neut % (Auto) 72.3 H (34.0-67.9) % Lymph % (Auto) 8.6 L (21.8-53.1) % [place] % (Auto) 18.1 H (5.3-12.2) % Eos % (Auto) 0.7 L (0.8-7.0) Baso % (Auto) 0.0 L (0.1-1.2) % Neut # (Auto) 4.18 (1.78-5.38) K/mm3 Lymph # (Auto) 0.50 L (1.32-3.57) K/mm3 [place] # (Auto) 1.05 H (0.30-0.82) K/mm3 Eos # (Auto) 0.04 (0.04-0.54) K/mm3 Baso # (Auto) 0.00 L (0.01-0.08) K/mm3 Neutrophils % (Manual) (40-60) % Band Neutrophils % (0-10) % Lymphocytes % (Manual) (20-40) % Atypical Lymphs % % Monocytes % (Manual) (2-10) % Eosinophils % (Manual) (0.8-7.0) % Basophils % (Manual) (0.2-1.2) Manual Slide Review Abnormal smear Platelet Estimate Poikilocytosis Anisocytosis RBC Morph Comment PT (9.7-12.0) SECONDS INR Puncture Site ABG pH (7.35-7.45) ABG pCO2 (35.0-45.0) mmHg ABG pO2 (80.0-100.0) mmHg ABG HCO3 (22.0-26.0) meq/L ABG O2 Saturation (96.0-97.0) % ABG Base Excess (-2-2.0) Aaron Test A-a Gradient mmHg O2 Delivery Device FiO2 (21.00-100.00) % Tidal Volume cc PEEP cmH20 Sodium 135 L D (136-145) mEq/L Potassium 2.3 L* (3.5-5.1) mEq/L Chloride 96 L D (98-107) mEq/L Carbon Dioxide 33 H (21-32) mEq/L Anion Gap 8.3 (5-15) BUN 3 L (7-18) mg/dL Creatinine 0.6 L (0.7-1.3) mg/dL Est Cr Clr Drug Dosing 176.04 mL/min Estimated GFR (MDRD) > 60 (>60) mL/min BUN/Creatinine Ratio 5.0 L (14-18) Glucose 101 (74-106) mg/dL POC Glucose 128 H (70-105) mg/dL Calcium 8.1 L (8.5-10.1) mg/dL Magnesium 2.0 (1.8-2.4) mg/dl Total Bilirubin (0.2-1.0) mg/dL AST (15-37) U/L ALT (16-63) U/L Alkaline Phosphatase (46-116) U/L Total Protein (6.4-8.2) g/dl Albumin (3.4-5.0) g/dl Globulin gm/dL Albumin/Globulin Ratio (1-2) Vitamin B12 (193-986) pg/ml Folate (8.6-58.9) ng/mL Urine Opiates Screen (MJDYPO=513) Ur Buprenorphine Scrn (CUTOFF=10) Ur Oxycodone Screen (UCT2ZZ=978) Urine Methadone Screen (ZQL1SG=787) Ur Propoxyphene Screen (YERQBH=297) Ur Barbiturates Screen (XQIIEC=892) Ur Tricyclics Screen (DESENX=413) Ur Phencyclidine Scrn (CUTOFF=25) Ur Amphetamine Screen (NTZREQ=232) U Methamphetamines Scrn (VMUOEH=399) U Benzodiazepines Scrn (DWFYRH=215) U Cocaine Metab Screen (BUXOOP=775) U Marijuana (THC) Screen (CUTOFF=50) Ethyl Alcohol (0.00) gm% 03/07/19 03/07/19 03/07/19 Range/Units 04:37 05:41 06:10 WBC (4.23-9.07) K/mm3 RBC (4.63-6.08) M/mm3 Hgb (13.7-17.5) gm/L Hct (40.1-51.0) % MCV (79.0-92.2) fl MCH (25.7-32.2) pg MCHC (32.2-35.5) g/dl RDW Std Deviation (35.1-43.9) fL Plt Count (163-337) K/mm3 MPV (9.4-12.3) fl Neut % (Auto) (34.0-67.9) % Lymph % (Auto) (21.8-53.1) % [place] % (Auto) (5.3-12.2) % Eos % (Auto) (0.8-7.0) Baso % (Auto) (0.1-1.2) % Neut # (Auto) (1.78-5.38) K/mm3 Lymph # (Auto) (1.32-3.57) K/mm3 [place] # (Auto) (0.30-0.82) K/mm3 Eos # (Auto) (0.04-0.54) K/mm3 Baso # (Auto) (0.01-0.08) K/mm3 Neutrophils % (Manual) (40-60) % Band Neutrophils % (0-10) % Lymphocytes % (Manual) (20-40) % Atypical Lymphs % % Monocytes % (Manual) (2-10) % Eosinophils % (Manual) (0.8-7.0) % Basophils % (Manual) (0.2-1.2) Manual Slide Review Platelet Estimate Poikilocytosis Anisocytosis RBC Morph Comment PT (9.7-12.0) SECONDS INR Puncture Site Rt radial ABG pH 7.45 (7.35-7.45) ABG pCO2 48.5 H (35.0-45.0) mmHg ABG pO2 94.0 (80.0-100.0) mmHg ABG HCO3 33.3 H (22.0-26.0) meq/L ABG O2 Saturation 97.6 H (96.0-97.0) % ABG Base Excess 8.4 H (-2-2.0) Aaron Test Positive A-a Gradient 74 mmHg O2 Delivery Device Ventilator FiO2 32.00 (21.00-100.00) % Tidal Volume 500.0 cc PEEP 6.0 cmH20 Sodium (136-145) mEq/L Potassium (3.5-5.1) mEq/L Chloride (98-107) mEq/L Carbon Dioxide (21-32) mEq/L Anion Gap (5-15) BUN (7-18) mg/dL Creatinine (0.7-1.3) mg/dL Est Cr Clr Drug Dosing mL/min Estimated GFR (MDRD) (>60) mL/min BUN/Creatinine Ratio (14-18) Glucose (74-106) mg/dL POC Glucose 91 (70-105) mg/dL Calcium (8.5-10.1) mg/dL Magnesium (1.8-2.4) mg/dl Total Bilirubin (0.2-1.0) mg/dL AST (15-37) U/L ALT (16-63) U/L Alkaline Phosphatase (46-116) U/L Total Protein (6.4-8.2) g/dl Albumin (3.4-5.0) g/dl Globulin gm/dL Albumin/Globulin Ratio (1-2) Vitamin B12 293 (193-986) pg/ml Folate 17.0 (8.6-58.9) ng/mL Urine Opiates Screen (FBPCNO=410) Ur Buprenorphine Scrn (CUTOFF=10) Ur Oxycodone Screen (FZJ1WS=546) Urine Methadone Screen (RTI4UP=145) Ur Propoxyphene Screen (HDCLUW=374) Ur Barbiturates Screen (YTDQBJ=707) Ur Tricyclics Screen (BISCNI=638) Ur Phencyclidine Scrn (CUTOFF=25) Ur Amphetamine Screen (WZILMD=729) U Methamphetamines Scrn (ILAMXN=120) U Benzodiazepines Scrn (PDVRQZ=166) U Cocaine Metab Screen (ATLTAV=217) U Marijuana (THC) Screen (CUTOFF=50) Ethyl Alcohol (0.00) gm% Med Orders - Current: Current Medications Albuterol/Ipratropium (Duoneb 3.0-0.5 Mg/3 Ml) 3 ml NEB Q4H PRN PRN Reason: Shortness Of Breath/wheezing Bisacodyl (Dulcolax) 5 mg PO DAILY PRN PRN Reason: Constipation Dextrose/Water (Dextrose 50% In Water) 50 ml IVPUSH ASDIRECTED PRN PRN Reason: Hypoglycemia Docusate Sodium (Colace) 100 mg PO BID PRN PRN Reason: Constipation Hydromorphone HCl (Dilaudid) 0.5 mg IVPUSH Q2H PRN PRN Reason: Pain (severe 7-10) Promethazine HCl 6.25 mg/ (Sodium Chloride) 50.25 mls @ 100 mls/hr IV Q6H PRN PRN Reason: Nausea/Vomiting Potassium Chloride/Dextrose/Sod Cl (D5 Ns With 20 Meq Kcl) 1,000 mls @ 125 mls/ hr IV ASDIRECTED BERNARDA Last Admin: 03/07/19 02:08 Dose: 125 mls/hr Midazolam HCl 50 mg/ Sodium (Chloride) 50 mls @ 1 mls/hr IV TITRATE BERNARDA; Protocol Last Admin: 03/07/19 06:18 Dose: 5 mg/hr, 5 mls/hr Propofol (Diprivan 100 Ml) 100 mls @ 20 mls/hr IV TITRATE BERNARDA; Protocol Last Titration: 03/07/19 05:10 Dose: 16.8 mls/hr, 16.8 mls/hr Levofloxacin/Dextrose 750 mg/ (Premix) 150 mls @ 100 mls/hr IV Q24H BERNARDA Last Admin: 03/06/19 22:45 Dose: 100 mls/hr Multivitamins/Minerals 10 ml/ (Sodium Chloride) 510 mls @ 255 mls/hr IV DAILY BERNARDA Stop: 03/09/19 10:59 Piperacillin Sod/Tazobactam (Sod 4.5 gm/ Sodium Chloride) 100 mls @ 25 mls/hr IV Q8H BRENARDA Ibuprofen (Motrin) 600 mg PO Q6H PRN PRN Reason: Pain (moderate 4-6) Insulin Human Lispro (Humalog) 0 unit SUBCUT Q6H [facility]; Protocol Last Admin: 03/07/19 05:43 Dose: Not Given Levetiracetam (Keppra) 1,000 mg PO BID [facility] Miscellaneous Information (Remove Patch) 1 ea TRDERM DAILY [facility] Nicotine (Habitrol) 21 mg TRDERM DAILY [facility] Ondansetron HCl (Zofran) 4 mg IV Q6H PRN PRN Reason: Nausea/Vomiting Pantoprazole Sodium (Protonix Iv) 40 mg IV Q12HR [facility] Last Admin: 03/06/19 21:37 Dose: 40 mg Polyethylene Glycol (Miralax) 17 gm PO DAILY PRN PRN Reason: Constipation Senna/Docusate Sodium (Senna Plus) 1 tab PO BID PRN PRN Reason: Constipation Thiamine HCl (Vitamin B-1) 100 mg PO BEDTIME BERNARDA Discontinued Medications Enoxaparin Sodium (Lovenox) 30 mg SUBCUT DAILY [facility] Levetiracetam 1,000 mg/ Sodium (Chloride) 110 mls @ 400 mls/hr IV ONETIME ONE Stop: 03/06/19 14:12 Last Admin: 03/06/19 20:40 Dose: Not Given Levetiracetam 1,500 mg/ Sodium (Chloride) 115 mls @ 400 mls/hr IV ONETIME ONE Stop: 03/06/19 14:15 Last Admin: 03/06/19 20:08 Dose: Not Given Fosphenytoin Sodium 160 mg.pe/ (Sodium Chloride) 53.2 mls @ 200 mls/hr IV NOW ONE Stop: 03/06/19 14:32 Last Admin: 03/06/19 15:50 Dose: 200 mls/hr Fosphenytoin Sodium 1,440 mg. (pe/ Sodium Chloride) 128.8 mls @ 257 mls/hr IV ONETIME ONE Stop: 03/06/19 16:00 Last Admin: 03/06/19 16:22 Dose: 257 mls/hr Lactated Ringer's (Ringers, Lactated) 1,000 mls @ 999 mls/hr IV .BOLUS ONE Stop: 03/06/19 17:30 Last Admin: 03/06/19 16:34 Dose: 999 mls/hr Potassium Chloride 10 meq/ (Premix) 100 mls @ 100 mls/hr IV Q1H BERNARDA Stop: 03/06/19 23:59 Last Admin: 03/07/19 01:39 Dose: 100 mls/hr Propofol (Diprivan 100 Ml) Confirm Administered Dose 100 mls @ as directed .ROUTE .STK-MED ONE Stop: 03/06/19 19:14 Last Admin: 03/06/19 19:22 Dose: 28.8 mls/hr Piperacillin Sod/Tazobactam (Sod 4.5 gm/ Sodium Chloride) 100 mls @ 200 mls/hr IV ONETIME ONE Stop: 03/06/19 22:29 Last Admin: 03/06/19 22:05 Dose: 200 mls/hr Piperacillin Sod/Tazobactam (Sod 4.5 gm/ Sodium Chloride) 100 mls @ 25 mls/hr IV Q8H [facility] Potassium Chloride (Kcl 10 Meq In Water 100 Ml) Confirm Administered Dose 100 mls @ as directed .ROUTE .STK-MED ONE Stop: 03/06/19 20:21 Last Admin: 03/06/19 20:27 Dose: Not Given Thiamine HCl 200 mg/ Sodium (Chloride) 102 mls @ 204 mls/hr IV ONETIME ONE Stop: 03/07/19 02:29 Last Admin: 03/07/19 02:04 Dose: 204 mls/hr Magnesium Sulfate 2 gm/ Premix 50 mls @ 25 mls/hr IV ONETIME ONE Stop: 03/07/19 05:47 Last Admin: 03/07/19 04:37 Dose: 25 mls/hr Levetiracetam (Keppra) 500 mg PO BID BERNARDA - Exam Quality Assessment: Supplemental Oxygen General: Obtunded HEENT: Pupils Equal, Pupils Reactive, Other (ET tube ) Neck: Supple Lungs: Normal Respiratory Effort, Other (mechanical sounds) Cardiovascular: Regular Rate, Regular Rhythm GI/Abdominal Exam: Normal Bowel Sounds, Soft, Non-Tender, No Organomegaly, No Distention, No Abnormal Bruit, No Mass (Male) Exam: Other (indwelling arroyo catheter) Back Exam: Other (deferred) Extremities: Normal Inspection, Normal Range of Motion, Non-Tender, No Pedal Edema, Normal Capillary Refill Peripheral Pulses: 2+: Posterior Tibial (L), Posterior Tibial (R), Dorsalis Pedis (L), Dorsalis Pedis (R) Skin: Warm, Dry, Intact Neurological: Other (not appropriate) Physical Findings Comments:: Physical exam is limited, he is sedated and intubated on mechanical vent - Problem List Review Problem List Initiated/Reviewed/Updated: Yes - My Orders Last 24 Hours: My Active Orders 03/06/19 15:00 CULTURE URINE [RM] Stat 03/06/19 15:05 Insert Arroyo Catheter [Insert Urinary Catheter] [OM.PC] Q24H 03/06/19 17:57 Bedrest Bedside Commode [RC] ASDIRECTED Cardiac Monitoring [RC] CONTINUOUS Height and Weight [RC] DAILY Intake and Output [RC] Q2HR Oxygen Therapy [RC] PRN VTE/DVT Education [RC] PER UNIT ROUTINE Consult to Case Management/Supervisor Plate Pasting [CONS] Routine Consult to Spiritual Care [CONS] Routine Respiratory Care Assess and Treatment [CONS] Routine Albuterol/Ipratropium [DuoNeb 3.0-0.5 MG/3 ML] 3 ml NEB Q4H PRN Bisacodyl [Dulcolax] 5 mg PO DAILY PRN Docusate Sodium [Colace] 100 mg PO BID PRN Docusate Sodium/Sennosides [Senna Plus] 1 tab PO BID PRN HYDROmorphone [Dilaudid] 0.5 mg IVPUSH Q2H PRN Ibuprofen [Motrin] 600 mg PO Q6H PRN Ondansetron [Zofran] 4 mg IV Q6H PRN Polyethylene Glycol 3350 [MiraLAX] 17 gm PO DAILY PRN Promethazine [Phenergan] 6.25 mg Sodium Chloride 0.9% [Normal Saline] 50 ml IV Q6H Resuscitation Status Routine 03/06/19 17:58 RT Aerosol Therapy [RC] ASDIRECTED 03/06/19 18:00 RT Ventilator, Adult [RC] ASDIRECTED Insulin Lispro [HumaLOG] See Protocol SUBCUT Q6H 03/06/19 18:01 Blood Glucose Check, Bedside [RC] Q6HR Dextrose 50% in Water 50 ml IVPUSH ASDIRECTED PRN 03/06/19 18:15 Dextrose 5%-0.9% NaCl with KCl [D5 NS with 20 mEq KCl] 1,000 ml IV ASDIRECTED 03/06/19 18:22 RASS Sedation Scale [RC] ASDIRECTED 03/06/19 18:30 Midazolam [Versed 5 MG/ML] 50 mg Sodium Chloride 0.9% [Normal Saline] 40 ml IV TITRATE SCD [Sequential Compression Device] [OM.PC] Routine 03/06/19 20:44 Antiembolic Devices [RC] 09,21 SCD [Sequential Compression Device] [OM.PC] Routine 03/06/19 21:00 Pantoprazole [ProTONIX IV] 40 mg IV Q12HR 03/06/19 23:00 Levofloxacin/Dextrose 5%-Water [Levaquin in D5W 750 MG/150 ML] 750 mg Premix Bag 1 bag IV Q24H 03/06/19 23:48 Urinary Catheter Assessment [RC] Q4HR 03/06/19 Dinner Nothing per Oral Now Diet [DIET] 03/07/19 04:37 BASIC METABOLIC PANEL,BMP [CHEM] AM MAGNESIUM [CHEM] AM VITAMIN D,25-HYDROXY [CHEM] AM 03/07/19 07:00 Chest 1V Frontal [CR] DAILY 03/07/19 08:00 Piperacillin/Tazobactam [Piperacil-Tazobact] 4.5 gm Sodium Chloride 0.9% [ Normal Saline] 100 ml IV Q8H 03/07/19 09:00 MVI, Adult with Vitamin K [Infuvite Adult] 10 ml Sodium Chloride 0.9% [Normal Saline] 500 ml IV DAILY Nicotine [Habitrol] 21 mg TRDERM DAILY Remove Patch 1 ea TRDERM DAILY levETIRAcetam [Keppra] 1,000 mg PO BID 03/07/19 21:00 Thiamine [Vitamin B-1] 100 mg PO BEDTIME 03/08/19 05:11 BASIC METABOLIC PANEL,BMP [CHEM] AM CBC WITH AUTO DIFF [HEME] AM MAGNESIUM [CHEM] AM 03/08/19 07:00 Chest 1V Frontal [CR] DAILY ABG [BLOOD GAS ARTERIAL] [BG] DAILY 03/09/19 05:11 BASIC METABOLIC PANEL,BMP [CHEM] AM CBC WITH AUTO DIFF [HEME] AM MAGNESIUM [CHEM] AM 03/09/19 07:00 Chest 1V Frontal [CR] DAILY ABG [BLOOD GAS ARTERIAL] [BG] DAILY 03/10/19 05:11 BASIC METABOLIC PANEL,BMP [CHEM] AM CBC WITH AUTO DIFF [HEME] AM MAGNESIUM [CHEM] AM 03/10/19 07:00 Chest 1V Frontal [CR] DAILY ABG [BLOOD GAS ARTERIAL] [BG] DAILY 03/11/19 05:11 BASIC METABOLIC PANEL,BMP [CHEM] AM CBC WITH AUTO DIFF [HEME] AM MAGNESIUM [CHEM] AM - Plan Plan:: Assessment: Acute: Mechanical Ventilation - 2/2 Alcohol Related Status Epilepticus - Failure to Protect Airway - IV Propofol and Versed - RASS of -4 - IV antibiotics for possible aspiration - RT to assess and treat Status Epilepticus - Has had hx/o alcohol related seizures in the past per family - He was seizing on his way to ED and even after he received multiple doses of Ativan in ED - Had gotten IV Keppra and Fosphenytoin - He is on Keppra 500 mg po BID and will obtain level in AM - No on IV Propofol and Versed with RASS of -4 ETOH Withdrawal Symptoms - Drinks heavily with > 12 pack a day - Unclear about his last drink; GAURI is 0 - 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 - Risk factors: Chronic Alcoholism - [facility] Protocol for Ativan/Versed (mechanical ventilation) - MVI, Folic Acid and Thiamine - IV fluids for hydration Hyponatremia/Hypokalemia/Hypomagnesemia/Hypocalcemia - Na of 122-->135; K of 2.5-->2.3; Mg of 1.5-->2; Ca of 8.1-->8.1 - 2/2 Poor nutritional status from Chronic Alcoholism - Replete and monitor Nicotine Dependence - Smokes cigarettes a pack a day - Nicotine Patch daily Chronic: Chronic ETOH Dependence, and Alcohol Related Seizures Plan: He is clinically stable and no reports of seizures overnight Mechanical Vent with RASS of -4 Seizure/Fall Precautions IV D5WNS plus KCl for hydration DVT/GI Prophylaxis: PPI and SCDs SAC/Tele-psych consult SW/CM for d/c planning Repeat labs tonight Additional orders as above Critical care time spent: 20 mins Updated family at bedside about his diagnoses, lab results and treatment plan
[2019-03-07] MEDS ORDERED: Potassium Chloride 20 MEQ Tab.ER PO ONE (07:30)
[2019-03-07] MEDS: Piperacillin/Tazobactam 4.5 GM in Sodium Chloride 0.9% 100 ML IV SCH ×2 (07:45→15:24)
[2019-03-07 07:54] LABS: VITAMIN D,25-HYDROXY 12.9 ng/ml (30.0-100.0)
[2019-03-07] MEDS ORDERED: Enoxaparin 30 MG/0.3 ML Syringe SUBCUT SCH (09:00)
[2019-03-07] MEDS ORDERED: MVI, Adult with Vitamin K 10 ML SDV IV SCH (09:00)
[2019-03-07] MEDS ORDERED: levETIRAcetam 500 MG Tab PO SCH ×2 (09:00)
[2019-03-07] MEDS: Pantoprazole 40 MG Vial IV SCH ×2 (09:06→20:48)
--- NOTE | 2019-03-07 09:21 | CR ---
Chest: Portable view of the chest was obtained. Comparison: Prior chest x-ray of 03/06/19. Heart size is normal. Tortuous thoracic aorta is seen. Endotracheal tube is stable in position with tip lying at the lower level of the clavicle. Nasogastric tube is again noted with tip being within the stomach. Lungs remain clear with no acute parenchymal change. Bony structures remain grossly intact. Impression: 1. Stable position of endotracheal tube. Tip of nasogastric tube remains within the stomach. 2. Nothing acute is otherwise seen on portable chest x-ray. Diagnostic code #3
[2019-03-07] MEDS: Nicotine 21 MG/24 Hr Patch TRDERM SCH (10:10)
[2019-03-07] MEDS: MVI, Adult with Vitamin K 10 ML in Sodium Chloride 0.9% 500 ML IV SCH ×2 (10:22)
[2019-03-07] MEDS: levETIRAcetam Soln 500 MG/5 ML Cup NGTUBE SCH ×2 (11:17→20:47)
[2019-03-07] MEDS: Thiamine 100 MG Tab PO SCH (20:46)
[2019-03-07] MEDS: Cholecalciferol (Vitamin D3) 5,000 UNIT Tab PO SCH (20:46)
[2019-03-07] MEDS: Levofloxacin/Dextrose 5%-Water 750 MG in Premix Bag 1 BAG IV SCH (22:38)
[2019-03-08] MEDS: Piperacillin/Tazobactam 4.5 GM in Sodium Chloride 0.9% 100 ML IV SCH ×4 (00:20→23:57)
[2019-03-08] MEDS: Midazolam 50 MG in Sodium Chloride 0.9% 40 ML IV SCH ×3 (01:08→17:46)
[2019-03-08] MEDS: Dextrose 5%-0.9% NaCl with KCl 1,000 ML IV SCH ×2 (05:16→15:15)
[2019-03-08] MEDS: Insulin Lispro 100 Units/ML 3 ML Vial SUBCUT SCH ×4 (05:40→19:29)
[2019-03-08] MEDS ORDERED: Potassium Chloride 20 MEQ Tab.ER PO ONE (07:32)
--- NOTE | 2019-03-08 07:33 | PCM.PN ---
- General Info Date of Service: 03/08/19 Admission Dx/Problem (Free Text): Admission Diagnosis/Problem Admission Diagnosis/Problem Alcohol withdrawal seizure Subjective Update: Follow Up Functional Status: Reports: Pain Controlled, Tolerating Diet, Ambulating, Urinating. Denies: New Symptoms - Review of Systems General: Denies: Fever, Chills HEENT: Reports: No Symptoms Pulmonary: Denies: Wheezing Cardiovascular: Denies: Edema Gastrointestinal: Denies: Nausea, Vomiting Skin: Denies: Cyanosis Systems Review Comment:: ROS is limited, he is sedated, intubated on mechanical vent - Patient Data Vitals - Most Recent: Last Vital Signs Temp 36.9 C 03/08/19 04:00 Pulse 71 03/08/19 04:00 Resp 14 03/08/19 04:00 BP 164/90 H 03/08/19 04:00 Pulse Ox 98 03/08/19 05:44 Weight - Most Recent: 181.4 kg I&O - Last 24 Hours: Intake & Output 03/07/19 03/08/19 03/08/19 22:59 06:59 14:59 Intake Total 3026 1500 Output Total 260 175 Balance 2766 1325 Lab Results Last 24 Hours: Laboratory Results - last 24 hr 03/07/19 03/07/19 03/07/19 Range/Units 04:37 12:27 18:12 WBC (4.23-9.07) K/mm3 RBC (4.63-6.08) M/mm3 Hgb (13.7-17.5) gm/L Hct (40.1-51.0) % MCV (79.0-92.2) fl MCH (25.7-32.2) pg MCHC (32.2-35.5) g/dl RDW Std Deviation (35.1-43.9) fL Plt Count (163-337) K/mm3 MPV (9.4-12.3) fl Neut % (Auto) (34.0-67.9) % Lymph % (Auto) (21.8-53.1) % Shannon % (Auto) (5.3-12.2) % Eos % (Auto) (0.8-7.0) Baso % (Auto) (0.1-1.2) % Neut # (Auto) (1.78-5.38) K/mm3 Lymph # (Auto) (1.32-3.57) K/mm3 Shannon # (Auto) (0.30-0.82) K/mm3 Eos # (Auto) (0.04-0.54) K/mm3 Baso # (Auto) (0.01-0.08) K/mm3 Manual Slide Review Puncture Site ABG pH (7.35-7.45) ABG pCO2 (35.0-45.0) mmHg ABG pO2 (80.0-100.0) mmHg ABG HCO3 (22.0-26.0) meq/L ABG O2 Saturation (96.0-97.0) % ABG Base Excess (-2-2.0) A-a Gradient mmHg O2 Delivery Device FiO2 (21.00-100.00) % Tidal Volume cc PEEP cmH20 Sodium (136-145) mEq/L Potassium (3.5-5.1) mEq/L Chloride (98-107) mEq/L Carbon Dioxide (21-32) mEq/L Anion Gap (5-15) BUN (7-18) mg/dL Creatinine (0.7-1.3) mg/dL Est Cr Clr Drug Dosing mL/min Estimated GFR (MDRD) (>60) mL/min BUN/Creatinine Ratio (14-18) Glucose (74-106) mg/dL POC Glucose 100 85 (70-105) mg/dL Calcium (8.5-10.1) mg/dL Magnesium (1.8-2.4) mg/dl Vitamin D 25-Hydroxy 12.9 L (30.0-100.0) ng/ml 03/07/19 03/07/19 03/08/19 Range/Units 22:31 23:32 04:42 WBC 5.56 (4.23-9.07) K/mm3 RBC 3.93 L (4.63-6.08) M/mm3 Hgb 12.8 L (13.7-17.5) gm/L Hct 37.8 L (40.1-51.0) % MCV 96.2 H D (79.0-92.2) fl MCH 32.6 H (25.7-32.2) pg MCHC 33.9 (32.2-35.5) g/dl RDW Std Deviation 45.0 H (35.1-43.9) fL Plt Count 79 L (163-337) K/mm3 MPV 11.7 (9.4-12.3) fl Neut % (Auto) 66.9 (34.0-67.9) % Lymph % (Auto) 13.8 L (21.8-53.1) % Shannon % (Auto) 16.9 H (5.3-12.2) % Eos % (Auto) 1.8 (0.8-7.0) Baso % (Auto) 0.4 (0.1-1.2) % Neut # (Auto) 3.72 (1.78-5.38) K/mm3 Lymph # (Auto) 0.77 L (1.32-3.57) K/mm3 Shannon # (Auto) 0.94 H (0.30-0.82) K/mm3 Eos # (Auto) 0.10 (0.04-0.54) K/mm3 Baso # (Auto) 0.02 (0.01-0.08) K/mm3 Manual Slide Review Abnormal smear Puncture Site ABG pH (7.35-7.45) ABG pCO2 (35.0-45.0) mmHg ABG pO2 (80.0-100.0) mmHg ABG HCO3 (22.0-26.0) meq/L ABG O2 Saturation (96.0-97.0) % ABG Base Excess (-2-2.0) A-a Gradient mmHg O2 Delivery Device FiO2 (21.00-100.00) % Tidal Volume cc PEEP cmH20 Sodium 142 (136-145) mEq/L Potassium 3.2 L (3.5-5.1) mEq/L Chloride 104 (98-107) mEq/L Carbon Dioxide 32 (21-32) mEq/L Anion Gap 9.2 (5-15) BUN 2 L (7-18) mg/dL Creatinine 0.7 (0.7-1.3) mg/dL Est Cr Clr Drug Dosing 150.89 mL/min Estimated GFR (MDRD) > 60 (>60) mL/min BUN/Creatinine Ratio 2.9 L (14-18) Glucose 94 (74-106) mg/dL POC Glucose 113 H (70-105) mg/dL Calcium 8.0 L (8.5-10.1) mg/dL Magnesium 2.3 (1.8-2.4) mg/dl Vitamin D 25-Hydroxy (30.0-100.0) ng/ml 03/08/19 03/08/19 03/08/19 Range/Units 04:42 05:38 06:02 WBC (4.23-9.07) K/mm3 RBC (4.63-6.08) M/mm3 Hgb (13.7-17.5) gm/L Hct (40.1-51.0) % MCV (79.0-92.2) fl MCH (25.7-32.2) pg MCHC (32.2-35.5) g/dl RDW Std Deviation (35.1-43.9) fL Plt Count (163-337) K/mm3 MPV (9.4-12.3) fl Neut % (Auto) (34.0-67.9) % Lymph % (Auto) (21.8-53.1) % Shannon % (Auto) (5.3-12.2) % Eos % (Auto) (0.8-7.0) Baso % (Auto) (0.1-1.2) % Neut # (Auto) (1.78-5.38) K/mm3 Lymph # (Auto) (1.32-3.57) K/mm3 Shannon # (Auto) (0.30-0.82) K/mm3 Eos # (Auto) (0.04-0.54) K/mm3 Baso # (Auto) (0.01-0.08) K/mm3 Manual Slide Review Puncture Site ABG pH (7.35-7.45) ABG pCO2 (35.0-45.0) mmHg ABG pO2 (80.0-100.0) mmHg ABG HCO3 (22.0-26.0) meq/L ABG O2 Saturation (96.0-97.0) % ABG Base Excess (-2-2.0) A-a Gradient mmHg O2 Delivery Device FiO2 (21.00-100.00) % Tidal Volume cc PEEP cmH20 Sodium 138 (136-145) mEq/L Potassium 2.9 L (3.5-5.1) mEq/L Chloride 103 (98-107) mEq/L Carbon Dioxide 26 (21-32) mEq/L Anion Gap 11.9 (5-15) BUN 3 L (7-18) mg/dL Creatinine 0.6 L (0.7-1.3) mg/dL Est Cr Clr Drug Dosing 176.04 mL/min Estimated GFR (MDRD) > 60 (>60) mL/min BUN/Creatinine Ratio 5.0 L (14-18) Glucose 73 L (74-106) mg/dL POC Glucose 76 141 H (70-105) mg/dL Calcium 7.6 L (8.5-10.1) mg/dL Magnesium 2.0 (1.8-2.4) mg/dl Vitamin D 25-Hydroxy (30.0-100.0) ng/ml 03/08/19 Range/Units 06:10 WBC (4.23-9.07) K/mm3 RBC (4.63-6.08) M/mm3 Hgb (13.7-17.5) gm/L Hct (40.1-51.0) % MCV (79.0-92.2) fl MCH (25.7-32.2) pg MCHC (32.2-35.5) g/dl RDW Std Deviation (35.1-43.9) fL Plt Count (163-337) K/mm3 MPV (9.4-12.3) fl Neut % (Auto) (34.0-67.9) % Lymph % (Auto) (21.8-53.1) % Shannon % (Auto) (5.3-12.2) % Eos % (Auto) (0.8-7.0) Baso % (Auto) (0.1-1.2) % Neut # (Auto) (1.78-5.38) K/mm3 Lymph # (Auto) (1.32-3.57) K/mm3 Shannon # (Auto) (0.30-0.82) K/mm3 Eos # (Auto) (0.04-0.54) K/mm3 Baso # (Auto) (0.01-0.08) K/mm3 Manual Slide Review Puncture Site Rt radial ABG pH 7.43 (7.35-7.45) ABG pCO2 40.3 (35.0-45.0) mmHg ABG pO2 83.0 (80.0-100.0) mmHg ABG HCO3 26.1 H (22.0-26.0) meq/L ABG O2 Saturation 97.3 H (96.0-97.0) % ABG Base Excess 2.2 H (-2-2.0) A-a Gradient 95 mmHg O2 Delivery Device Ventilator FiO2 32.00 (21.00-100.00) % Tidal Volume 500.0 cc PEEP 6.0 cmH20 Sodium (136-145) mEq/L Potassium (3.5-5.1) mEq/L Chloride (98-107) mEq/L Carbon Dioxide (21-32) mEq/L Anion Gap (5-15) BUN (7-18) mg/dL Creatinine (0.7-1.3) mg/dL Est Cr Clr Drug Dosing mL/min Estimated GFR (MDRD) (>60) mL/min BUN/Creatinine Ratio (14-18) Glucose (74-106) mg/dL POC Glucose (70-105) mg/dL Calcium (8.5-10.1) mg/dL Magnesium (1.8-2.4) mg/dl Vitamin D 25-Hydroxy (30.0-100.0) ng/ml Mauro Results Last 24 Hours: Microbiology 03/06/19 15:00 Urine Culture - Final Urine, Catheterized NO GROWTH AFTER 2 DAYS Med Orders - Current: Current Medications Albuterol/Ipratropium (Duoneb 3.0-0.5 Mg/3 Ml) 3 ml NEB Q4H PRN PRN Reason: Shortness Of Breath/wheezing Bisacodyl (Dulcolax) 5 mg PO DAILY PRN PRN Reason: Constipation Cholecalciferol (Vitamin D3) 5,000 unit PO DAILY [facility] Last Admin: 03/07/19 20:46 Dose: 5,000 unit Dextrose/Water (Dextrose 50% In Water) 50 ml IVPUSH ASDIRECTED PRN PRN Reason: Hypoglycemia Last Admin: 03/08/19 05:48 Dose: 25 ml Docusate Sodium (Colace) 100 mg PO BID PRN PRN Reason: Constipation Hydromorphone HCl (Dilaudid) 0.5 mg IVPUSH Q2H PRN PRN Reason: Pain (severe 7-10) Promethazine HCl 6.25 mg/ (Sodium Chloride) 50.25 mls @ 100 mls/hr IV Q6H PRN PRN Reason: Nausea/Vomiting Potassium Chloride/Dextrose/Sod Cl (D5 Ns With 20 Meq Kcl) 1,000 mls @ 125 mls/ hr IV ASDIRECTED [facility] Last Admin: 03/08/19 05:16 Dose: 125 mls/hr Midazolam HCl 50 mg/ Sodium (Chloride) 50 mls @ 1 mls/hr IV TITRATE [facility]; Protocol Last Titration: 03/08/19 04:46 Dose: 7 mg/hr, 7 mls/hr Propofol (Diprivan 100 Ml) 100 mls @ 20 mls/hr IV TITRATE [facility]; Protocol Last Admin: 03/08/19 06:44 Dose: 18.2 mls/hr, 18.2 mls/hr Levofloxacin/Dextrose 750 mg/ (Premix) 150 mls @ 100 mls/hr IV Q24H [facility] Last Admin: 03/07/19 22:38 Dose: 100 mls/hr Multivitamins/Minerals 10 ml/ (Sodium Chloride) 510 mls @ 255 mls/hr IV DAILY [facility] Stop: 03/09/19 10:59 Last Admin: 03/07/19 10:22 Dose: 255 mls/hr Piperacillin Sod/Tazobactam (Sod 4.5 gm/ Sodium Chloride) 100 mls @ 25 mls/hr IV Q8H [facility] Last Admin: 03/08/19 00:20 Dose: 25 mls/hr Potassium Chloride 10 meq/ (Premix) 100 mls @ 100 mls/hr IV Q1H [facility] Stop: 03/08/19 13:44 Ibuprofen (Motrin) 600 mg PO Q6H PRN PRN Reason: Pain (moderate 4-6) Insulin Human Lispro (Humalog) 0 unit SUBCUT Q6H [facility]; Protocol Last Admin: 03/08/19 05:40 Dose: Not Given Levetiracetam (Keppra) 1,000 mg NGTUBE BID [facility] Last Admin: 03/07/19 20:47 Dose: 1,000 mg Miscellaneous Information (Remove Patch) 1 ea TRDERM DAILY [facility] Last Admin: 03/07/19 10:12 Dose: Not Given Nicotine (Habitrol) 21 mg TRDERM DAILY [facility] Last Admin: 03/07/19 10:10 Dose: 21 mg Ondansetron HCl (Zofran) 4 mg IV Q6H PRN PRN Reason: Nausea/Vomiting Pantoprazole Sodium (Protonix Iv) 40 mg IV Q12HR [facility] Last Admin: 03/07/19 20:48 Dose: 40 mg Polyethylene Glycol (Miralax) 17 gm PO DAILY PRN PRN Reason: Constipation Potassium Chloride (Klor-Con M20) 40 meq PO ONETIME ONE Stop: 03/08/19 07:33 Senna/Docusate Sodium (Senna Plus) 1 tab PO BID PRN PRN Reason: Constipation Thiamine HCl (Vitamin B-1) 100 mg PO BEDTIME [facility] Last Admin: 03/07/19 20:46 Dose: 100 mg Discontinued Medications Enoxaparin Sodium (Lovenox) 30 mg SUBCUT DAILY [facility] Levetiracetam 1,000 mg/ Sodium (Chloride) 110 mls @ 400 mls/hr IV ONETIME ONE Stop: 03/06/19 14:12 Last Admin: 03/06/19 20:40 Dose: Not Given Levetiracetam 1,500 mg/ Sodium (Chloride) 115 mls @ 400 mls/hr IV ONETIME ONE Stop: 03/06/19 14:15 Last Admin: 03/06/19 20:08 Dose: Not Given Fosphenytoin Sodium 160 mg.pe/ (Sodium Chloride) 53.2 mls @ 200 mls/hr IV NOW ONE Stop: 03/06/19 14:32 Last Admin: 03/06/19 15:50 Dose: 200 mls/hr Fosphenytoin Sodium 1,440 mg. (pe/ Sodium Chloride) 128.8 mls @ 257 mls/hr IV ONETIME ONE Stop: 03/06/19 16:00 Last Admin: 03/06/19 16:22 Dose: 257 mls/hr Lactated Ringer's (Ringers, Lactated) 1,000 mls @ 999 mls/hr IV .BOLUS ONE Stop: 03/06/19 17:30 Last Admin: 03/06/19 16:34 Dose: 999 mls/hr Potassium Chloride 10 meq/ (Premix) 100 mls @ 100 mls/hr IV Q1H [facility] Stop: 03/06/19 23:59 Last Admin: 03/07/19 01:39 Dose: 100 mls/hr Propofol (Diprivan 100 Ml) Confirm Administered Dose 100 mls @ as directed .ROUTE .STK-MED ONE Stop: 03/06/19 19:14 Last Admin: 03/06/19 19:22 Dose: 28.8 mls/hr Piperacillin Sod/Tazobactam (Sod 4.5 gm/ Sodium Chloride) 100 mls @ 200 mls/hr IV ONETIME ONE Stop: 03/06/19 22:29 Last Admin: 03/06/19 22:05 Dose: 200 mls/hr Piperacillin Sod/Tazobactam (Sod 4.5 gm/ Sodium Chloride) 100 mls @ 25 mls/hr IV Q8H [facility] Potassium Chloride (Kcl 10 Meq In Water 100 Ml) Confirm Administered Dose 100 mls @ as directed .ROUTE .STK-MED ONE Stop: 03/06/19 20:21 Last Admin: 03/06/19 20:27 Dose: Not Given Thiamine HCl 200 mg/ Sodium (Chloride) 102 mls @ 204 mls/hr IV ONETIME ONE Stop: 03/07/19 02:29 Last Admin: 03/07/19 02:04 Dose: 204 mls/hr Magnesium Sulfate 2 gm/ Premix 50 mls @ 25 mls/hr IV ONETIME ONE Stop: 03/07/19 05:47 Last Admin: 03/07/19 04:37 Dose: 25 mls/hr Potassium Chloride 10 meq/ (Premix) 100 mls @ 100 mls/hr IV Q1H [facility] Stop: 03/07/19 13:29 Last Admin: 03/07/19 14:08 Dose: 100 mls/hr Levetiracetam (Keppra) 500 mg PO BID [facility] Levetiracetam (Keppra) 1,000 mg PO BID [facility] Last Admin: 03/08/19 03:52 Dose: Not Given Lidocaine HCl (Lidocaine 1%) 8 ml .ROUTE .STK-MED ONE Stop: 03/06/19 16:01 Potassium Chloride (Klor-Con M20) 60 meq PO ONETIME ONE Stop: 03/07/19 07:31 Last Admin: 03/07/19 07:36 Dose: Not Given Propofol (Diprivan 20 Ml) 200 mg .ROUTE .STK-MED ONE Stop: 03/06/19 16:01 Succinylcholine Chloride (Quelicin) 200 mg .ROUTE .STK-MED ONE Stop: 03/06/19 16:01 - Exam General: Sedated HEENT: Pupils Equal, Pupils Reactive Lungs: Normal Respiratory Effort, Other (mechanical breath sounds). No: Wheezing Cardiovascular: Regular Rate, Regular Rhythm, Other GI/Abdominal Exam: Normal Bowel Sounds, Soft, Non-Tender, No Organomegaly, No Distention (Male) Exam: Other (indwelling arroyo catheter) Back Exam: Other (deferred) Extremities: Normal Inspection, Normal Range of Motion, Non-Tender, No Pedal Edema, Normal Capillary Refill Peripheral Pulses: 2+: Posterior Tibial (L), Posterior Tibial (R), Dorsalis Pedis (L), Dorsalis Pedis (R) Skin: Warm, Dry, Intact Physical Findings Comments:: Physical exam is limited, he is sedated, intubated on mechanical vent - Problem List Review Problem List Initiated/Reviewed/Updated: Yes - My Orders Last 24 Hours: My Active Orders 03/07/19 08:00 Piperacillin/Tazobactam [Piperacil-Tazobact] 4.5 gm Sodium Chloride 0.9% [ Normal Saline] 100 ml IV Q8H 03/07/19 09:00 MVI, Adult with Vitamin K [Infuvite Adult] 10 ml Sodium Chloride 0.9% [Normal Saline] 500 ml IV DAILY Nicotine [Habitrol] 21 mg TRDERM DAILY Remove Patch 1 ea TRDERM DAILY 03/07/19 10:00 levETIRAcetam [Keppra] 1,000 mg NGTUBE BID 03/07/19 21:00 Cholecalciferol (Vitamin D3) [Vitamin D3] 5,000 unit PO DAILY Thiamine [Vitamin B-1] 100 mg PO BEDTIME 03/08/19 04:42 LEVETIRACETAM, S [REF] Routine 03/08/19 07:00 Chest 1V Frontal [CR] DAILY 03/08/19 07:32 Potassium Chloride [Klor-Con M20] 40 meq PO ONETIME ONE 03/08/19 07:45 Potassium Chloride [KCl 10 MEQ in Water 100 ML] 10 meq Premix Bag 1 bag IV Q1H 03/08/19 09:00 Calcium Carbonate [Tums] 1,000 mg PO BID 03/09/19 05:11 BASIC METABOLIC PANEL,BMP [CHEM] AM CBC WITH AUTO DIFF [HEME] AM MAGNESIUM [CHEM] AM 03/09/19 07:00 Chest 1V Frontal [CR] DAILY ABG [BLOOD GAS ARTERIAL] [BG] DAILY 03/10/19 05:11 BASIC METABOLIC PANEL,BMP [CHEM] AM CBC WITH AUTO DIFF [HEME] AM MAGNESIUM [CHEM] AM 03/10/19 07:00 Chest 1V Frontal [CR] DAILY ABG [BLOOD GAS ARTERIAL] [BG] DAILY 03/11/19 05:11 BASIC METABOLIC PANEL,BMP [CHEM] AM CBC WITH AUTO DIFF [HEME] AM MAGNESIUM [CHEM] AM - Plan Plan:: Assessment: Acute: Mechanical Ventilation - 2/2 Alcohol Related Status Epilepticus - Failure to Protect Airway - IV Propofol and Versed - RASS of -4; May change to -3 this evening - IV antibiotics for possible aspiration - RT to assess and treat Hypokalemia/Hypocalcemia - K of 2.5-->2.3-->2.9; Ca of 8.1-->8.1-->7.6 - 2/2 Poor nutritional status from Chronic Alcoholism - Replete and monitor Nicotine Dependence - Smokes cigarettes a pack a day - Nicotine Patch daily Resolved: S/p Status Epilepticus - Has had hx/o alcohol related seizures in the past per family - He was seizing on his way to ED and even after he received multiple doses of Ativan in ED - Had gotten IV Keppra and Fosphenytoin - He is on Keppra 500 mg po BID and will obtain level in AM - No on IV Propofol and Versed with RASS of -4 S/p ETOH Withdrawal Symptoms - Drinks heavily with > 12 pack a day - Unclear about his last drink; GAURI is 0 - 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 - Risk factors: Chronic Alcoholism - CIWAA Protocol for Ativan/Versed (mechanical ventilation) - MVI, Folic Acid and Thiamine - IV fluids for hydration S/p Hyponatremia/Hypomagnesemia/ - Na of 122-->135;Mg of 1.5-->2 Chronic: Chronic ETOH Dependence, and Alcohol Related Seizures Plan: He is clinically stable and no reports of seizures overnight Mechanical Vent with RASS of -4; May go up to -3 in the evening Seizure/Fall Precautions IV D5WNS plus KCl for hydration DVT/GI Prophylaxis: PPI and SCDs SAC/Tele-psych consult once appropriate SW/CM for d/c planning Repeat labs tonight Additional orders as above Critical care time spent: 20 mins Updated at bedside about his diagnoses, lab results and treatment plan
[2019-03-08] MEDS: Potassium Chloride 10 MEQ in Premix Bag 1 BAG IV SCH ×6 (07:43→13:11)
[2019-03-08] MEDS: Nicotine 21 MG/24 Hr Patch TRDERM SCH (08:50)
[2019-03-08] MEDS: Pantoprazole 40 MG Vial IV SCH ×2 (08:53→20:03)
[2019-03-08] MEDS: Calcium Carbonate 500 MG Tab.Chew PO SCH ×2 (08:55→20:14)
[2019-03-08] MEDS: Cholecalciferol (Vitamin D3) 5,000 UNIT Tab PO SCH (08:56)
[2019-03-08] MEDS: MVI, Adult with Vitamin K 10 ML in Sodium Chloride 0.9% 500 ML IV SCH ×2 (08:56)
[2019-03-08] MEDS: levETIRAcetam Soln 500 MG/5 ML Cup NGTUBE SCH ×2 (08:56→20:19)
--- NOTE | 2019-03-08 08:57 | CR ---
Chest: Portable view of the chest was obtained. Comparison: Prior chest x-ray of 03/07/19. Heart size and mediastinum are within normal limits. Lungs are clear with no acute parenchymal change. Endotracheal tube is seen with tip lying slightly past the lower level of the clavicles in satisfactory position. Bony structures are grossly intact. Nasogastric tube is seen with tip coursing off the inferior edge of the film into the stomach. Impression: 1. Satisfactory position of endotracheal tube and nasogastric tube. 2. Nothing acute is otherwise seen on portable chest x-ray. Diagnostic code #3
[2019-03-08] MEDS: Thiamine 100 MG Tab PO SCH (20:16)
[2019-03-08] MEDS: Levofloxacin/Dextrose 5%-Water 750 MG in Premix Bag 1 BAG IV SCH (22:18)
[2019-03-09] MEDS: Dextrose 5%-0.9% NaCl with KCl 1,000 ML IV SCH ×3 (00:05→16:13)
[2019-03-09] MEDS: Insulin Lispro 100 Units/ML 3 ML Vial SUBCUT SCH ×4 (02:34→17:33)
[2019-03-09] MEDS: Midazolam 50 MG in Sodium Chloride 0.9% 40 ML IV SCH (03:10)
--- NOTE | 2019-03-09 08:05 | CR ---
Chest: Portable view of the chest was obtained. Comparison: Prior chest x-ray of 03/08/19. Tip of endotracheal tube lies slightly passed the inferior clavicles in satisfactory position. Heart size and mediastinum are within normal limits for portable technique. Lungs are clear with no acute parenchymal change. Artifact is noted over the right shoulder. Impression: 1. Satisfactory position of endotracheal tube. Nothing acute is otherwise seen on portable chest x-ray. Diagnostic code #3
[2019-03-09] MEDS: Piperacillin/Tazobactam 4.5 GM in Sodium Chloride 0.9% 100 ML IV SCH (08:09)
[2019-03-09] MEDS: Pantoprazole 40 MG Vial IV SCH ×2 (08:11→20:29)
[2019-03-09] MEDS: Cholecalciferol (Vitamin D3) 5,000 UNIT Tab PO SCH (08:12)
[2019-03-09] MEDS: levETIRAcetam Soln 500 MG/5 ML Cup NGTUBE SCH (08:12)
[2019-03-09] MEDS: Nicotine 21 MG/24 Hr Patch TRDERM SCH (08:14)
[2019-03-09] MEDS: MVI, Adult with Vitamin K 10 ML in Sodium Chloride 0.9% 500 ML IV SCH ×2 (08:18)
[2019-03-09] MEDS: Potassium Chloride 10 MEQ in Premix Bag 1 BAG IV SCH ×7 (08:41→15:10)
--- NOTE | 2019-03-09 09:04 | PCM.PN ---
- General Info Date of Service: 03/09/19 Admission Dx/Problem (Free Text): Admission Diagnosis/Problem Admission Diagnosis/Problem Alcohol withdrawal seizure Subjective Update: Follow Up Functional Status: Reports: Pain Controlled, Tolerating Diet, Ambulating, Urinating. Denies: New Symptoms - Review of Systems General: Denies: Fever, Chills HEENT: Reports: No Symptoms Pulmonary: Reports: Shortness of Breath Gastrointestinal: Denies: Nausea, Vomiting Skin: Denies: Bruising Systems Review Comment:: ROS is limited, he sedated and intubated on mechanical vent - Patient Data Vitals - Most Recent: Last Vital Signs Temp 36.5 C 03/09/19 08:00 Pulse 65 03/09/19 04:00 Resp 20 03/09/19 08:53 BP 165/104 H 03/09/19 08:00 Pulse Ox 100 03/09/19 08:53 Weight - Most Recent: 80.467 kg I&O - Last 24 Hours: Intake & Output 03/08/19 03/09/19 03/09/19 22:59 06:59 14:59 Intake Total 3193 2139 Output Total 930 1225 75 Balance 2263 914 -75 Lab Results Last 24 Hours: Laboratory Results - last 24 hr 03/08/19 03/08/19 03/08/19 Range/Units 12:01 17:20 18:08 WBC (4.23-9.07) K/mm3 RBC (4.63-6.08) M/mm3 Hgb (13.7-17.5) gm/L Hct (40.1-51.0) % MCV (79.0-92.2) fl MCH (25.7-32.2) pg MCHC (32.2-35.5) g/dl RDW Std Deviation (35.1-43.9) fL Plt Count (163-337) K/mm3 MPV (9.4-12.3) fl Neut % (Auto) (34.0-67.9) % Lymph % (Auto) (21.8-53.1) % [place] % (Auto) (5.3-12.2) % Eos % (Auto) (0.8-7.0) Baso % (Auto) (0.1-1.2) % Neut # (Auto) (1.78-5.38) K/mm3 Lymph # (Auto) (1.32-3.57) K/mm3 [place] # (Auto) (0.30-0.82) K/mm3 Eos # (Auto) (0.04-0.54) K/mm3 Baso # (Auto) (0.01-0.08) K/mm3 Manual Slide Review Puncture Site ABG pH (7.35-7.45) ABG pCO2 (35.0-45.0) mmHg ABG pO2 (80.0-100.0) mmHg ABG HCO3 (22.0-26.0) meq/L ABG O2 Saturation (96.0-97.0) % ABG Base Excess (-2-2.0) A-a Gradient mmHg O2 Delivery Device FiO2 (21.00-100.00) % Tidal Volume cc PEEP cmH20 Sodium 140 (136-145) mEq/L Potassium 3.8 (3.5-5.1) mEq/L Chloride 109 H (98-107) mEq/L Carbon Dioxide 27 (21-32) mEq/L Anion Gap 7.8 (5-15) BUN 2 L (7-18) mg/dL Creatinine 0.6 L (0.7-1.3) mg/dL Est Cr Clr Drug Dosing 176.04 mL/min Estimated GFR (MDRD) > 60 (>60) mL/min BUN/Creatinine Ratio 3.3 L (14-18) Glucose 90 (74-106) mg/dL POC Glucose 97 101 (70-105) mg/dL Calcium 7.7 L (8.5-10.1) mg/dL Magnesium 1.8 (1.8-2.4) mg/dl 03/09/19 03/09/19 03/09/19 Range/Units 01:55 04:40 04:40 WBC 6.00 (4.23-9.07) K/mm3 RBC 3.94 L (4.63-6.08) M/mm3 Hgb 12.8 L (13.7-17.5) gm/L Hct 38.5 L (40.1-51.0) % MCV 97.7 H (79.0-92.2) fl MCH 32.5 H (25.7-32.2) pg MCHC 33.2 (32.2-35.5) g/dl RDW Std Deviation 47.2 H (35.1-43.9) fL Plt Count 104 L (163-337) K/mm3 MPV 11.3 (9.4-12.3) fl Neut % (Auto) 60.0 (34.0-67.9) % Lymph % (Auto) 17.8 L (21.8-53.1) % [place] % (Auto) 18.7 H (5.3-12.2) % Eos % (Auto) 2.5 (0.8-7.0) Baso % (Auto) 0.7 (0.1-1.2) % Neut # (Auto) 3.60 (1.78-5.38) K/mm3 Lymph # (Auto) 1.07 L (1.32-3.57) K/mm3 [place] # (Auto) 1.12 H (0.30-0.82) K/mm3 Eos # (Auto) 0.15 (0.04-0.54) K/mm3 Baso # (Auto) 0.04 (0.01-0.08) K/mm3 Manual Slide Review Abnormal smear Puncture Site ABG pH (7.35-7.45) ABG pCO2 (35.0-45.0) mmHg ABG pO2 (80.0-100.0) mmHg ABG HCO3 (22.0-26.0) meq/L ABG O2 Saturation (96.0-97.0) % ABG Base Excess (-2-2.0) A-a Gradient mmHg O2 Delivery Device FiO2 (21.00-100.00) % Tidal Volume cc PEEP cmH20 Sodium 138 (136-145) mEq/L Potassium 3.5 (3.5-5.1) mEq/L Chloride 107 (98-107) mEq/L Carbon Dioxide 24 (21-32) mEq/L Anion Gap 10.5 (5-15) BUN 2 L (7-18) mg/dL Creatinine 0.6 L (0.7-1.3) mg/dL Est Cr Clr Drug Dosing 176.04 mL/min Estimated GFR (MDRD) > 60 (>60) mL/min BUN/Creatinine Ratio 3.3 L (14-18) Glucose 95 (74-106) mg/dL POC Glucose 84 (70-105) mg/dL Calcium 7.7 L (8.5-10.1) mg/dL Magnesium 1.7 L (1.8-2.4) mg/dl 03/09/19 03/09/19 Range/Units 06:02 06:46 WBC (4.23-9.07) K/mm3 RBC (4.63-6.08) M/mm3 Hgb (13.7-17.5) gm/L Hct (40.1-51.0) % MCV (79.0-92.2) fl MCH (25.7-32.2) pg MCHC (32.2-35.5) g/dl RDW Std Deviation (35.1-43.9) fL Plt Count (163-337) K/mm3 MPV (9.4-12.3) fl Neut % (Auto) (34.0-67.9) % Lymph % (Auto) (21.8-53.1) % [place] % (Auto) (5.3-12.2) % Eos % (Auto) (0.8-7.0) Baso % (Auto) (0.1-1.2) % Neut # (Auto) (1.78-5.38) K/mm3 Lymph # (Auto) (1.32-3.57) K/mm3 [place] # (Auto) (0.30-0.82) K/mm3 Eos # (Auto) (0.04-0.54) K/mm3 Baso # (Auto) (0.01-0.08) K/mm3 Manual Slide Review Puncture Site Rt radial ABG pH 7.41 (7.35-7.45) ABG pCO2 36.6 (35.0-45.0) mmHg ABG pO2 101.0 H (80.0-100.0) mmHg ABG HCO3 23.0 (22.0-26.0) meq/L ABG O2 Saturation 98.3 H (96.0-97.0) % ABG Base Excess -0.7 (-2-2.0) A-a Gradient 82 mmHg O2 Delivery Device Ventilator FiO2 32.00 (21.00-100.00) % Tidal Volume 500.0 cc PEEP 6.0 cmH20 Sodium (136-145) mEq/L Potassium (3.5-5.1) mEq/L Chloride (98-107) mEq/L Carbon Dioxide (21-32) mEq/L Anion Gap (5-15) BUN (7-18) mg/dL Creatinine (0.7-1.3) mg/dL Est Cr Clr Drug Dosing mL/min Estimated GFR (MDRD) (>60) mL/min BUN/Creatinine Ratio (14-18) Glucose (74-106) mg/dL POC Glucose 89 (70-105) mg/dL Calcium (8.5-10.1) mg/dL Magnesium (1.8-2.4) mg/dl Mauro Results Last 24 Hours: Microbiology 03/06/19 15:00 Urine Culture - Final Urine, Catheterized NO GROWTH AFTER 2 DAYS Med Orders - Current: Current Medications Albuterol/Ipratropium (Duoneb 3.0-0.5 Mg/3 Ml) 3 ml NEB Q4H PRN PRN Reason: Shortness Of Breath/wheezing Bisacodyl (Dulcolax) 5 mg PO DAILY PRN PRN Reason: Constipation Cholecalciferol (Vitamin D3) 5,000 unit PO DAILY [facility] Last Admin: 03/09/19 08:12 Dose: 5,000 unit Dextrose/Water (Dextrose 50% In Water) 50 ml IVPUSH ASDIRECTED PRN PRN Reason: Hypoglycemia Last Admin: 03/08/19 05:48 Dose: 25 ml Docusate Sodium (Colace) 100 mg PO BID PRN PRN Reason: Constipation Hydromorphone HCl (Dilaudid) 0.5 mg IVPUSH Q2H PRN PRN Reason: Pain (severe 7-10) Promethazine HCl 6.25 mg/ (Sodium Chloride) 50.25 mls @ 100 mls/hr IV Q6H PRN PRN Reason: Nausea/Vomiting Potassium Chloride/Dextrose/Sod Cl (D5 Ns With 20 Meq Kcl) 1,000 mls @ 125 mls/ hr IV ASDIRECTED BERNARDA Last Admin: 03/09/19 08:07 Dose: 125 mls/hr Midazolam HCl 50 mg/ Sodium (Chloride) 50 mls @ 1 mls/hr IV TITRATE [facility]ARDA; Protocol Last Titration: 03/09/19 07:00 Dose: 0 mg/hr, 0 mls/hr Propofol (Diprivan 100 Ml) 100 mls @ 20 mls/hr IV TITRATE [facility]; Protocol Last Titration: 03/09/19 08:55 Dose: 9.6 mls/hr, 9.6 mls/hr Levofloxacin/Dextrose 750 mg/ (Premix) 150 mls @ 100 mls/hr IV Q24H [facility] Last Admin: 03/08/19 22:18 Dose: 100 mls/hr Multivitamins/Minerals 10 ml/ (Sodium Chloride) 510 mls @ 255 mls/hr IV DAILY [facility] Stop: 03/09/19 10:59 Last Admin: 03/09/19 08:18 Dose: 255 mls/hr Piperacillin Sod/Tazobactam (Sod 4.5 gm/ Sodium Chloride) 100 mls @ 25 mls/hr IV Q8H [facility] Last Admin: 03/09/19 08:09 Dose: 25 mls/hr Ibuprofen (Motrin) 600 mg PO Q6H PRN PRN Reason: Pain (moderate 4-6) Insulin Human Lispro (Humalog) 0 unit SUBCUT Q6H [facility]; Protocol Last Admin: 03/09/19 07:55 Dose: Not Given Levetiracetam (Keppra) 1,000 mg NGTUBE BID [facility] Last Admin: 03/09/19 08:12 Dose: 1,000 mg Miscellaneous Information (Remove Patch) 1 ea TRDERM DAILY [facility] Last Admin: 03/09/19 08:14 Dose: 1 ea Nicotine (Habitrol) 21 mg TRDERM DAILY [facility] Last Admin: 03/09/19 08:14 Dose: 21 mg Ondansetron HCl (Zofran) 4 mg IV Q6H PRN PRN Reason: Nausea/Vomiting Pantoprazole Sodium (Protonix Iv) 40 mg IV Q12HR [facility] Last Admin: 03/09/19 08:11 Dose: 40 mg Polyethylene Glycol (Miralax) 17 gm PO DAILY PRN PRN Reason: Constipation Senna/Docusate Sodium (Senna Plus) 1 tab PO BID PRN PRN Reason: Constipation Thiamine HCl (Vitamin B-1) 100 mg PO BEDTIME [facility] Last Admin: 03/08/19 20:16 Dose: 100 mg Discontinued Medications Calcium Carbonate/Glycine (Tums) 1,000 mg PO BID [facility] Stop: 03/08/19 21:01 Last Admin: 08/27/19 20:14 Dose: 1,000 mg Enoxaparin Sodium (Lovenox) 30 mg SUBCUT DAILY [facility] Levetiracetam 1,000 mg/ Sodium (Chloride) 110 mls @ 400 mls/hr IV ONETIME ONE Stop: 03/06/19 14:12 Last Admin: 03/06/19 20:40 Dose: Not Given Levetiracetam 1,500 mg/ Sodium (Chloride) 115 mls @ 400 mls/hr IV ONETIME ONE Stop: 03/06/19 14:15 Last Admin: 03/06/19 20:08 Dose: Not Given Fosphenytoin Sodium 160 mg.pe/ (Sodium Chloride) 53.2 mls @ 200 mls/hr IV NOW ONE Stop: 03/06/19 14:32 Last Admin: 03/06/19 15:50 Dose: 200 mls/hr Fosphenytoin Sodium 1,440 mg. (pe/ Sodium Chloride) 128.8 mls @ 257 mls/hr IV ONETIME ONE Stop: 03/06/19 16:00 Last Admin: 03/06/19 16:22 Dose: 257 mls/hr Lactated Ringer's (Ringers, Lactated) 1,000 mls @ 999 mls/hr IV .BOLUS ONE Stop: 03/06/19 17:30 Last Admin: 03/06/19 16:34 Dose: 999 mls/hr Potassium Chloride 10 meq/ (Premix) 100 mls @ 100 mls/hr IV Q1H [facility] Stop: 03/06/19 23:59 Last Admin: 03/07/19 01:39 Dose: 100 mls/hr Propofol (Diprivan 100 Ml) Confirm Administered Dose 100 mls @ as directed .ROUTE .STK-MED ONE Stop: 03/06/19 19:14 Last Admin: 03/06/19 19:22 Dose: 28.8 mls/hr Piperacillin Sod/Tazobactam (Sod 4.5 gm/ Sodium Chloride) 100 mls @ 200 mls/hr IV ONETIME ONE Stop: 03/06/19 22:29 Last Admin: 03/06/19 22:05 Dose: 200 mls/hr Piperacillin Sod/Tazobactam (Sod 4.5 gm/ Sodium Chloride) 100 mls @ 25 mls/hr IV Q8H [facility] Potassium Chloride (Kcl 10 Meq In Water 100 Ml) Confirm Administered Dose 100 mls @ as directed .ROUTE .STK-MED ONE Stop: 03/06/19 20:21 Last Admin: 03/06/19 20:27 Dose: Not Given Thiamine HCl 200 mg/ Sodium (Chloride) 102 mls @ 204 mls/hr IV ONETIME ONE Stop: 03/07/19 02:29 Last Admin: 03/07/19 02:04 Dose: 204 mls/hr Magnesium Sulfate 2 gm/ Premix 50 mls @ 25 mls/hr IV ONETIME ONE Stop: 03/07/19 05:47 Last Admin: 03/07/19 04:37 Dose: 25 mls/hr Potassium Chloride 10 meq/ (Premix) 100 mls @ 100 mls/hr IV Q1H [facility] Stop: 03/07/19 13:29 Last Admin: 03/07/19 14:08 Dose: 100 mls/hr Potassium Chloride 10 meq/ (Premix) 100 mls @ 100 mls/hr IV Q1H [facility] Stop: 03/08/19 13:44 Last Admin: 03/08/19 13:11 Dose: 100 mls/hr Magnesium Sulfate/Dextrose 1 (gm/ Premix) 100 mls @ 100 mls/hr IV ONETIME ONE Stop: 03/08/19 16:36 Last Admin: 03/08/19 17:27 Dose: 100 mls/hr Potassium Chloride 10 meq/ (Premix) 100 mls @ 100 mls/hr IV Q1H [facility] Stop: 03/08/19 21:44 Last Admin: 03/09/19 08:42 Dose: Not Given Levetiracetam (Keppra) 500 mg PO BID [facility] Levetiracetam (Keppra) 1,000 mg PO BID [facility] Last Admin: 03/08/19 03:52 Dose: Not Given Lidocaine HCl (Lidocaine 1%) 8 ml .ROUTE .STK-MED ONE Stop: 03/06/19 16:01 Potassium Chloride (Klor-Con M20) 60 meq PO ONETIME ONE Stop: 03/07/19 07:31 Last Admin: 03/07/19 07:36 Dose: Not Given Potassium Chloride (Klor-Con M20) 40 meq PO ONETIME ONE Stop: 03/08/19 07:33 Last Admin: 03/08/19 07:39 Dose: 40 meq Propofol (Diprivan 20 Ml) 200 mg .ROUTE .STK-MED ONE Stop: 03/06/19 16:01 Succinylcholine Chloride (Quelicin) 200 mg .ROUTE .STK-MED ONE Stop: 03/06/19 16:01 - Exam HEENT: Pupils Equal, Pupils Reactive Lungs: Other (mechanical breath sounds) GI/Abdominal Exam: Normal Bowel Sounds, Soft, Non-Tender, No Organomegaly, No Distention, No Abnormal Bruit (Male) Exam: Other (indwelling arroyo catheter) Extremities: Normal Inspection, Normal Range of Motion, Non-Tender, No Pedal Edema, Normal Capillary Refill Skin: Warm, Dry, Intact Physical Findings Comments:: Physical exam is limited, he is sedated and intubated on mechanical vent - Problem List Review Problem List Initiated/Reviewed/Updated: Yes - My Orders Last 24 Hours: My Active Orders 03/09/19 08:11 RT Ventilator Weaning [RC] .As Directed RT Ventilator, Adult [RC] ASDIRECTED 03/10/19 05:11 BASIC METABOLIC PANEL,BMP [CHEM] AM CBC WITH AUTO DIFF [HEME] AM MAGNESIUM [CHEM] AM 03/10/19 07:00 Chest 1V Frontal [CR] DAILY ABG [BLOOD GAS ARTERIAL] [BG] DAILY 03/11/19 05:11 BASIC METABOLIC PANEL,BMP [CHEM] AM CBC WITH AUTO DIFF [HEME] AM MAGNESIUM [CHEM] AM - Plan Plan:: Assessment: Acute: Mechanical Ventilation - 2/2 Alcohol Related Status Epilepticus - Failure to Protect Airway - IV Propofol and Versed - RASS of -3 and sedation vacation with plans to extubate - IV antibiotics for possible aspiration; will be discontinued once extubated - RT to assess and treat Hypomagnesemia/Hypocalcemia - Mg of 1.5-->2-->1.7; Ca of 8.1-->8.1-->7.6-->7.7 - 2/2 Poor nutritional status from Chronic Alcoholism - Replete and monitor Nicotine Dependence - Smokes cigarettes a pack a day - Nicotine Patch daily Resolved: S/p Status Epilepticus - Has had hx/o alcohol related seizures in the past per family - He was seizing on his way to ED and even after he received multiple doses of Ativan in ED - Had gotten IV Keppra and Fosphenytoin - He is on Keppra 500 mg po BID and will obtain level in AM - No on IV Propofol and Versed with RASS of -4 S/p ETOH Withdrawal Symptoms - Drinks heavily with > 12 pack a day - Unclear about his last drink; GAURI is 0 - 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 - Risk factors: Chronic Alcoholism - [facility] Protocol for Ativan/Versed (mechanical ventilation) - MVI, Folic Acid and Thiamine - IV fluids for hydration S/p Hyponatremia/Hypokalemia - Na of 122-->135; K of 2.5-->2.3-->2.9-->3.5 Chronic: Chronic ETOH Dependence, and Alcohol Related Seizures Plan: He is clinically stable and comfortable on vent Sedation vacation with plans to extubate later today Seizure/Fall Precautions Keppra 500 mg po BID IV [id number] plus KCl for hydration DVT/GI Prophylaxis: PPI and SCDs SAC/Tele-psych consult once appropriate SW/CM for d/c planning Repeat labs tonight Additional orders as above Critical care time spent: 20 mins Updated family at bedside about his clinical status, lab results and treatment plan
[2019-03-09] MEDS ORDERED: Magnesium Sulfate/Water 2 GM in Premix Bag 1 BAG IV ONE (09:27)
[2019-03-09] MEDS ORDERED: Metoprolol Tartrate 5 MG/5 ML SDV IVPUSH PRN ×2 (11:46→20:42)
[2019-03-09] MEDS ORDERED: cloNIDine 0.3 MG/Day Transdermal Patch TRDERM SCH (12:00)
--- NOTE | 2019-03-09 12:59 | PCM.SN ---
- Free Text/Narrative Note: Patient was successfully extubated today. He is comfortable but still sedated. He is however responsive, moving all his extremities. He is sating at 91-96%.
[2019-03-09] MEDS: hydrALAZINE 20 MG/ML SDV IVPUSH PRN ×2 (16:15→23:52)
[2019-03-09] MEDS: levETIRAcetam Soln 500 MG/5 ML Cup PO SCH (20:28)
[2019-03-09] MEDS: Thiamine 100 MG Tab PO SCH (20:35)
[2019-03-09] MEDS ORDERED: LORazepam 2 MG/ML SDV IVPUSH PRN (20:42)
[2019-03-09] MEDS ORDERED: hydrALAZINE 20 MG/ML SDV IVPUSH PRN (20:42)
[2019-03-09] MEDS: LORazepam 2 MG/ML SDV IVPUSH PRN (21:16)
[2019-03-10] MEDS: Dextrose 5%-0.9% NaCl with KCl 1,000 ML IV SCH ×3 (00:27→13:39)
[2019-03-10] MEDS: Insulin Lispro 100 Units/ML 3 ML Vial SUBCUT SCH ×2 (00:31→05:55)
[2019-03-10] MEDS: LORazepam 2 MG/ML SDV IVPUSH PRN (00:49)
--- NOTE | 2019-03-10 07:08 | PCM.PN ---
- General Info Date of Service: 03/10/19 Admission Dx/Problem (Free Text): Admission Diagnosis/Problem Admission Diagnosis/Problem Alcohol withdrawal seizure Subjective Update: Follow Up Functional Status: Reports: Pain Controlled, Tolerating Diet, Urinating. Denies : New Symptoms - Review of Systems General: Reports: Malaise. Denies: Fever, Chills HEENT: Reports: No Symptoms Pulmonary: Denies: Shortness of Breath Cardiovascular: Denies: Chest Pain, Dyspnea on Exertion, Lightheadedness Gastrointestinal: Denies: Abdominal Pain, Nausea, Vomiting Genitourinary: Reports: No Symptoms Musculoskeletal: Reports: No Symptoms Skin: Reports: No Symptoms Neurological: Denies: Confusion, Difficulty Walking, Weakness, Gait Disturbance Psychiatric: Denies: Depression, Mood Lability, Anxiety, Agitation, Cravings, Hallucinations, Suicidal Ideation, Homicidal Ideation Systems Review Comment:: NO overnight issues and had an uneventful night per night nurse. However he states he did not sleep good and wants to know when can he get out of here. He has been up and gone to the bathroom for an episode of diarrhea. His K and Mg levels were again low this morning. - Patient Data Vitals - Most Recent: Last Vital Signs Temp 37.6 C 03/10/19 05:52 Pulse 100 03/10/19 03:43 Resp 17 03/10/19 03:43 BP 148/99 H 03/10/19 03:43 Pulse Ox 95 03/10/19 03:43 Weight - Most Recent: 82.327 kg I&O - Last 24 Hours: Intake & Output 03/09/19 03/10/19 03/10/19 22:59 06:59 14:59 Intake Total 2675 1453 Output Total 2400 3300 Balance 275 -1847 Lab Results Last 24 Hours: Laboratory Results - last 24 hr 03/09/19 03/09/19 03/09/19 Range/Units 04:40 11:38 17:29 WBC (4.23-9.07) K/mm3 RBC (4.63-6.08) M/mm3 Hgb (13.7-17.5) gm/L Hct (40.1-51.0) % MCV (79.0-92.2) fl MCH (25.7-32.2) pg MCHC (32.2-35.5) g/dl RDW Std Deviation (35.1-43.9) fL Plt Count (163-337) K/mm3 MPV (9.4-12.3) fl Neut % (Auto) (34.0-67.9) % Lymph % (Auto) (21.8-53.1) % [place] % (Auto) (5.3-12.2) % Eos % (Auto) (0.8-7.0) Baso % (Auto) (0.1-1.2) % Neut # (Auto) (1.78-5.38) K/mm3 Lymph # (Auto) (1.32-3.57) K/mm3 [place] # (Auto) (0.30-0.82) K/mm3 Eos # (Auto) (0.04-0.54) K/mm3 Baso # (Auto) (0.01-0.08) K/mm3 Manual Slide Review Abnormal smear Sodium (136-145) mEq/L Potassium (3.5-5.1) mEq/L Chloride (98-107) mEq/L Carbon Dioxide (21-32) mEq/L Anion Gap (5-15) BUN (7-18) mg/dL Creatinine (0.7-1.3) mg/dL Est Cr Clr Drug Dosing mL/min Estimated GFR (MDRD) (>60) mL/min BUN/Creatinine Ratio (14-18) Glucose (74-106) mg/dL POC Glucose 89 80 (70-105) mg/dL Calcium (8.5-10.1) mg/dL Magnesium (1.8-2.4) mg/dl 03/09/19 03/10/19 03/10/19 Range/Units 23:46 04:24 04:24 WBC 6.82 (4.23-9.07) K/mm3 RBC 4.04 L (4.63-6.08) M/mm3 Hgb 13.3 L (13.7-17.5) gm/L Hct 38.6 L (40.1-51.0) % MCV 95.5 H (79.0-92.2) fl MCH 32.9 H (25.7-32.2) pg MCHC 34.5 (32.2-35.5) g/dl RDW Std Deviation 45.2 H (35.1-43.9) fL Plt Count 142 L (163-337) K/mm3 MPV 10.6 (9.4-12.3) fl Neut % (Auto) 67.8 (34.0-67.9) % Lymph % (Auto) 12.2 L (21.8-53.1) % [place] % (Auto) 18.5 H (5.3-12.2) % Eos % (Auto) 0.9 (0.8-7.0) Baso % (Auto) 0.3 (0.1-1.2) % Neut # (Auto) 4.63 (1.78-5.38) K/mm3 Lymph # (Auto) 0.83 L (1.32-3.57) K/mm3 [place] # (Auto) 1.26 H (0.30-0.82) K/mm3 Eos # (Auto) 0.06 (0.04-0.54) K/mm3 Baso # (Auto) 0.02 (0.01-0.08) K/mm3 Manual Slide Review Sodium 135 L (136-145) mEq/L Potassium 3.3 L (3.5-5.1) mEq/L Chloride 102 (98-107) mEq/L Carbon Dioxide 26 (21-32) mEq/L Anion Gap 10.3 (5-15) BUN 1 L (7-18) mg/dL Creatinine 0.5 L (0.7-1.3) mg/dL Est Cr Clr Drug Dosing 211.24 mL/min Estimated GFR (MDRD) > 60 (>60) mL/min BUN/Creatinine Ratio 2.0 L (14-18) Glucose 85 (74-106) mg/dL POC Glucose 87 (70-105) mg/dL Calcium 8.2 L (8.5-10.1) mg/dL Magnesium 1.4 L (1.8-2.4) mg/dl 03/10/19 Range/Units 05:54 WBC (4.23-9.07) K/mm3 RBC (4.63-6.08) M/mm3 Hgb (13.7-17.5) gm/L Hct (40.1-51.0) % MCV (79.0-92.2) fl MCH (25.7-32.2) pg MCHC (32.2-35.5) g/dl RDW Std Deviation (35.1-43.9) fL Plt Count (163-337) K/mm3 MPV (9.4-12.3) fl Neut % (Auto) (34.0-67.9) % Lymph % (Auto) (21.8-53.1) % [place] % (Auto) (5.3-12.2) % Eos % (Auto) (0.8-7.0) Baso % (Auto) (0.1-1.2) % Neut # (Auto) (1.78-5.38) K/mm3 Lymph # (Auto) (1.32-3.57) K/mm3 [place] # (Auto) (0.30-0.82) K/mm3 Eos # (Auto) (0.04-0.54) K/mm3 Baso # (Auto) (0.01-0.08) K/mm3 Manual Slide Review Sodium (136-145) mEq/L Potassium (3.5-5.1) mEq/L Chloride (98-107) mEq/L Carbon Dioxide (21-32) mEq/L Anion Gap (5-15) BUN (7-18) mg/dL Creatinine (0.7-1.3) mg/dL Est Cr Clr Drug Dosing mL/min Estimated GFR (MDRD) (>60) mL/min BUN/Creatinine Ratio (14-18) Glucose (74-106) mg/dL POC Glucose 90 (70-105) mg/dL Calcium (8.5-10.1) mg/dL Magnesium (1.8-2.4) mg/dl Med Orders - Current: Current Medications Albuterol/Ipratropium (Duoneb 3.0-0.5 Mg/3 Ml) 3 ml NEB Q4H PRN PRN Reason: Shortness Of Breath/wheezing Bisacodyl (Dulcolax) 5 mg PO DAILY PRN PRN Reason: Constipation Cholecalciferol (Vitamin D3) 5,000 unit PO DAILY [facility] Last Admin: 03/09/19 08:12 Dose: 5,000 unit Clonidine HCl (Catapres-Tts 3) 0.3 mg TRDERM Q7D [facility] Last Admin: 03/09/19 11:54 Dose: 0.3 mg Dextrose/Water (Dextrose 50% In Water) 50 ml IVPUSH ASDIRECTED PRN PRN Reason: Hypoglycemia Last Admin: 03/08/19 05:48 Dose: 25 ml Docusate Sodium (Colace) 100 mg PO BID PRN PRN Reason: Constipation Hydralazine HCl (Apresoline) 20 mg IVPUSH Q4H PRN PRN Reason: Hypertension Last Admin: 03/09/19 23:52 Dose: 20 mg Hydralazine HCl (Apresoline) 20 mg IVPUSH Q4H PRN PRN Reason: Hypertension Hydromorphone HCl (Dilaudid) 0.5 mg IVPUSH Q2H PRN PRN Reason: Pain (severe 7-10) Last Admin: 03/09/19 11:27 Dose: 0.5 mg Promethazine HCl 6.25 mg/ (Sodium Chloride) 50.25 mls @ 100 mls/hr IV Q6H PRN PRN Reason: Nausea/Vomiting Midazolam HCl 50 mg/ Sodium (Chloride) 50 mls @ 1 mls/hr IV TITRATE [facility]; Protocol Last Titration: 03/09/19 07:00 Dose: 0 mg/hr, 0 mls/hr Propofol (Diprivan 100 Ml) 100 mls @ 20 mls/hr IV TITRATE [facility]; Protocol Last Titration: 03/09/19 09:05 Dose: 0 mls/hr, 0 mls/hr Potassium Chloride/Dextrose/Sod Cl (D5 Ns With 20 Meq Kcl) 1,000 mls @ 75 mls/ hr IV ASDIRECTED [facility] Last Admin: 03/10/19 00:27 Dose: 75 mls/hr Ibuprofen (Motrin) 600 mg PO Q6H PRN PRN Reason: Pain (moderate 4-6) Insulin Human Lispro (Humalog) 0 unit SUBCUT Q6H [facility]; Protocol Last Admin: 03/10/19 05:55 Dose: Not Given Levetiracetam (Keppra) 500 mg PO BID [facility] Last Admin: 03/09/19 20:28 Dose: 500 mg Lorazepam (Ativan) 2 mg IVPUSH Q4H PRN PRN Reason: Seizures Lorazepam (Ativan) 1 mg IVPUSH Q4H PRN; Protocol PRN Reason: Anxiety Last Admin: 03/10/19 00:49 Dose: 1 mg Metoprolol Tartrate (Lopressor) 5 mg IVPUSH Q4H PRN PRN Reason: Tachycardia Metoprolol Tartrate (Lopressor) 5 mg IVPUSH Q4H PRN PRN Reason: Tachycardia Miscellaneous Information (Remove Patch) 1 ea TRDERM DAILY [facility] Last Admin: 03/09/19 08:14 Dose: 1 ea Miscellaneous Information (Remove Patch) 1 ea TRDERM Q7D [facility] Nicotine (Habitrol) 21 mg TRDERM DAILY [facility] Last Admin: 03/09/19 08:14 Dose: 21 mg Ondansetron HCl (Zofran) 4 mg IV Q6H PRN PRN Reason: Nausea/Vomiting Last Admin: 03/09/19 20:28 Dose: 4 mg Pantoprazole Sodium (Protonix Iv) 40 mg IV Q12HR [facility] Last Admin: 03/09/19 20:29 Dose: 40 mg Polyethylene Glycol (Miralax) 17 gm PO DAILY PRN PRN Reason: Constipation Senna/Docusate Sodium (Senna Plus) 1 tab PO BID PRN PRN Reason: Constipation Thiamine HCl (Vitamin B-1) 100 mg PO BEDTIME [facility] Last Admin: 03/09/19 20:35 Dose: 100 mg Discontinued Medications Calcium Carbonate/Glycine (Tums) 1,000 mg PO BID [facility] Stop: 03/08/19 21:01 Last Admin: 03/08/19 20:14 Dose: 1,000 mg Enoxaparin Sodium (Lovenox) 30 mg SUBCUT DAILY [facility] Levetiracetam 1,000 mg/ Sodium (Chloride) 110 mls @ 400 mls/hr IV ONETIME ONE Stop: 03/06/19 14:12 Last Admin: 03/06/19 20:40 Dose: Not Given Levetiracetam 1,500 mg/ Sodium (Chloride) 115 mls @ 400 mls/hr IV ONETIME ONE Stop: 03/06/19 14:15 Last Admin: 03/06/19 20:08 Dose: Not Given Fosphenytoin Sodium 160 mg.pe/ (Sodium Chloride) 53.2 mls @ 200 mls/hr IV NOW ONE Stop: 03/06/19 14:32 Last Admin: 03/06/19 15:50 Dose: 200 mls/hr Fosphenytoin Sodium 1,440 mg. (pe/ Sodium Chloride) 128.8 mls @ 257 mls/hr IV ONETIME ONE Stop: 03/06/19 16:00 Last Admin: 03/06/19 16:22 Dose: 257 mls/hr Lactated Ringer's (Ringers, Lactated) 1,000 mls @ 999 mls/hr IV .BOLUS ONE Stop: 03/06/19 17:30 Last Admin: 03/06/19 16:34 Dose: 999 mls/hr Potassium Chloride 10 meq/ (Premix) 100 mls @ 100 mls/hr IV Q1H [facility] Stop: 03/06/19 23:59 Last Admin: 03/07/19 01:39 Dose: 100 mls/hr Potassium Chloride/Dextrose/Sod Cl (D5 Ns With 20 Meq Kcl) 1,000 mls @ 125 mls/ hr IV ASDIRECTED [facility] Last Infusion: 03/10/19 00:27 Dose: 75 mls/hr Propofol (Diprivan 100 Ml) Confirm Administered Dose 100 mls @ as directed .ROUTE .STK-MED ONE Stop: 03/06/19 19:14 Last Admin: 03/06/19 19:22 Dose: 28.8 mls/hr Piperacillin Sod/Tazobactam (Sod 4.5 gm/ Sodium Chloride) 100 mls @ 200 mls/hr IV ONETIME ONE Stop: 03/06/19 22:29 Last Admin: 03/06/19 22:05 Dose: 200 mls/hr Piperacillin Sod/Tazobactam (Sod 4.5 gm/ Sodium Chloride) 100 mls @ 25 mls/hr IV Q8H [facility] Potassium Chloride (Kcl 10 Meq In Water 100 Ml) Confirm Administered Dose 100 mls @ as directed .ROUTE .STK-MED ONE Stop: 03/06/19 20:21 Last Admin: 03/06/19 20:27 Dose: Not Given Levofloxacin/Dextrose 750 mg/ (Premix) 150 mls @ 100 mls/hr IV Q24H [facility] Last Admin: 03/08/19 22:18 Dose: 100 mls/hr Thiamine HCl 200 mg/ Sodium (Chloride) 102 mls @ 204 mls/hr IV ONETIME ONE Stop: 03/07/19 02:29 Last Admin: 03/07/19 02:04 Dose: 204 mls/hr Multivitamins/Minerals 10 ml/ (Sodium Chloride) 510 mls @ 255 mls/hr IV DAILY [facility] Stop: 03/09/19 10:59 Last Admin: 03/09/19 08:18 Dose: 255 mls/hr Magnesium Sulfate 2 gm/ Premix 50 mls @ 25 mls/hr IV ONETIME ONE Stop: 03/07/19 05:47 Last Admin: 03/07/19 04:37 Dose: 25 mls/hr Piperacillin Sod/Tazobactam (Sod 4.5 gm/ Sodium Chloride) 100 mls @ 25 mls/hr IV Q8H [facility] Last Admin: 03/09/19 08:09 Dose: 25 mls/hr Potassium Chloride 10 meq/ (Premix) 100 mls @ 100 mls/hr IV Q1H [facility] Stop: 03/07/19 13:29 Last Admin: 03/07/19 14:08 Dose: 100 mls/hr Potassium Chloride 10 meq/ (Premix) 100 mls @ 100 mls/hr IV Q1H [facility] Stop: 03/08/19 13:44 Last Admin: 03/08/19 13:11 Dose: 100 mls/hr Magnesium Sulfate/Dextrose 1 (gm/ Premix) 100 mls @ 100 mls/hr IV ONETIME ONE Stop: 03/08/19 16:36 Last Admin: 03/08/19 17:27 Dose: 100 mls/hr Potassium Chloride 10 meq/ (Premix) 100 mls @ 100 mls/hr IV Q1H [facility] Stop: 03/08/19 21:44 Last Admin: 03/09/19 08:42 Dose: Not Given Magnesium Sulfate 2 gm/ Premix 50 mls @ 25 mls/hr IV ONETIME ONE Stop: 03/09/19 11:26 Last Admin: 03/09/19 09:52 Dose: 25 mls/hr Potassium Chloride 10 meq/ (Premix) 100 mls @ 100 mls/hr IV Q1H [facility] Stop: 03/09/19 15:29 Last Admin: 03/09/19 15:10 Dose: Not Given Levetiracetam (Keppra) 500 mg PO BID [facility] Levetiracetam (Keppra) 1,000 mg PO BID [facility] Last Admin: 03/08/19 03:52 Dose: Not Given Levetiracetam (Keppra) 1,000 mg NGTUBE BID [facility] Last Admin: 03/09/19 08:12 Dose: 1,000 mg Lidocaine HCl (Lidocaine 1%) 8 ml .ROUTE .STK-MED ONE Stop: 03/06/19 16:01 Potassium Chloride (Klor-Con M20) 60 meq PO ONETIME ONE Stop: 03/07/19 07:31 Last Admin: 03/07/19 07:36 Dose: Not Given Potassium Chloride (Klor-Con M20) 40 meq PO ONETIME ONE Stop: 03/08/19 07:33 Last Admin: 03/08/19 07:39 Dose: 40 meq Propofol (Diprivan 20 Ml) 200 mg .ROUTE .STK-MED ONE Stop: 03/06/19 16:01 Succinylcholine Chloride (Quelicin) 200 mg .ROUTE .STK-MED ONE Stop: 03/06/19 16:01 - Exam General: Alert, Oriented, Cooperative, No Acute Distress HEENT: Pupils Equal, Pupils Reactive, EOMI, Mucous Membr. Moist/[place] Neck: Supple Lungs: Clear to Auscultation, Normal Respiratory Effort Cardiovascular: Regular Rate, Regular Rhythm GI/Abdominal Exam: Normal Bowel Sounds, Soft, Non-Tender, No Organomegaly, No Distention, No Abnormal Bruit, No Mass (Male) Exam: Other (indwelling arroyo catheter) Back Exam: Normal Inspection, Decreased Range of Motion Extremities: Normal Inspection, Normal Range of Motion, Non-Tender, No Pedal Edema, Normal Capillary Refill Peripheral Pulses: 2+: Posterior Tibial (L), Posterior Tibial (R), Dorsalis Pedis (L), Dorsalis Pedis (R) Skin: Warm, Dry, Intact Neurological: No New Focal Deficit Psy/Mental Status: Alert, Normal Affect, Depressed. No: Agitated, Suicidal Ideation, Homicidal Ideation, Hallucinations, Withdrawal Symptoms - Problem List Review Problem List Initiated/Reviewed/Updated: Yes - My Orders Last 24 Hours: My Active Orders 03/09/19 09:25 Extubation [RT Extubation] [RC] PER UNIT ROUTINE Consult to Speech Language Pathology [[employer]MER Evaluation and Treatment] [CONS] Routine 03/09/19 11:46 Metoprolol Tartrate [Lopressor] 5 mg IVPUSH Q4H PRN hydrALAZINE [Apresoline] 20 mg IVPUSH Q4H PRN 03/09/19 12:00 cloNIDine [Catapres-TTS 3] 0.3 mg TRDERM Q7D 03/09/19 20:42 LORazepam [Ativan] 1 mg IVPUSH Q4H PRN LORazepam [Ativan] 2 mg IVPUSH Q4H PRN Metoprolol Tartrate [Lopressor] 5 mg IVPUSH Q4H PRN hydrALAZINE [Apresoline] 20 mg IVPUSH Q4H PRN 03/09/19 21:00 levETIRAcetam [Keppra] 500 mg PO BID 03/09/19 Dinner Clear Liquid Diet [DIET] 03/10/19 00:30 Dextrose 5%-0.9% NaCl with KCl [D5 NS with 20 mEq KCl] 1,000 ml IV ASDIRECTED 03/10/19 04:24 CBC WITH AUTO DIFF [HEME] AM 03/10/19 07:00 Chest 1V Frontal [CR] DAILY 03/11/19 05:11 BASIC METABOLIC PANEL,BMP [CHEM] AM CBC WITH AUTO DIFF [HEME] AM MAGNESIUM [CHEM] AM 03/16/19 12:00 Remove Patch 1 ea TRDERM Q7D - Plan Plan:: Assessment: Acute: Hypomagnesemia/Hypocalcemia/Hypokalemia - Mg of 1.5-->2-->1.7; Ca of 8.1-->8.1-->7.6-->7.7; K of 2.5-->2.3-->2.9--> 3.5 - 2/2 Poor nutritional status from Chronic Alcoholism - Regular diet just started this morning - Replete and monitor Nicotine Dependence - Smokes cigarettes a pack a day - Nicotine Patch daily ETOH Related - Has not had any event since extubation - Continue Keppra 500 mg po BID Resolved: S/p Status Epilepticus - Has had hx/o alcohol related seizures in the past per family - He was seizing on his way to ED and even after he received multiple doses of Ativan in ED - Had gotten IV Keppra and Fosphenytoin - He is on Keppra 500 mg po BID and will obtain level in AM - No on IV Propofol and Versed with RASS of -4 S/p ETOH Withdrawal Symptoms - Drinks heavily with > 12 pack a day - Unclear about his last drink; GAURI is 0 - 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 - Risk factors: Chronic Alcoholism - CIFLA Protocol for Ativan/Versed (mechanical ventilation) - MVI, Folic Acid and Thiamine - IV fluids for hydration S/p Hyponatremia/Hypokalemia - Na of 122-->135 S/p Mechanical Ventilation - 2/2 Alcohol Related Status Epilepticus - Failure to Protect Airway - IV Propofol and Versed - RASS of -3 and sedation vacation with plans to extubate - IV antibiotics for possible aspiration; will be discontinued once extubated - RT to assess and treat Chronic: Chronic ETOH Dependence, and Alcohol Related Seizures Plan: He is clinically and hemodynamically stable but is still weak and feeling depressed Transfer to [facility] without Tele Seizure/Fall Precautions Discontinue Accu-check and IV [id number] plus KCl for hydration DVT/GI Prophylaxis: PPI and SCDs SAC/Tele-psych consult SW/CM for d/c planning Additional orders as above Critical care time spent: 15 mins Updated at bedside about his clinical status, lab results and treatment plan
--- NOTE | 2019-03-10 08:23 | CR ---
Chest: Portable view of the chest was obtained. Comparison: Prior chest x-ray of 03/09/19. Previous endotracheal tube and nasogastric tube have been removed. Minimal atelectasis is noted above the right hemidiaphragm. Lungs otherwise are clear. Heart size and mediastinum are normal. Bony structures are unremarkable. Impression: 1. Slight atelectasis above the right hemidiaphragm. 2. Nothing acute is otherwise seen. 3. Previous endotracheal tube and nasogastric tube have been removed. Diagnostic code #2
[2019-03-10] MEDS: Nicotine 21 MG/24 Hr Patch TRDERM SCH (08:39)
[2019-03-10] MEDS: levETIRAcetam Soln 500 MG/5 ML Cup PO SCH ×2 (08:39→20:16)
[2019-03-10] MEDS: Pantoprazole 40 MG Vial IV SCH (08:40)
[2019-03-10] MEDS: Cholecalciferol (Vitamin D3) 5,000 UNIT Tab PO SCH (08:40)
[2019-03-10] MEDS: Ibuprofen 600 MG Tab PO PRN (09:20)
[2019-03-10] MEDS ORDERED: Magnesium Sulfate/Water 4 GM in Premix Bag 1 BAG IV ONE (12:54)
[2019-03-10] MEDS ORDERED: Potassium Chloride 20 MEQ Tab.ER PO ONE ×2 (12:54→21:00)
[2019-03-10] MEDS: Pantoprazole 40 MG Tab.CR PO SCH (20:16)
[2019-03-10] MEDS: Thiamine 100 MG Tab PO SCH (20:16)
[2019-03-11] MEDS: Dextrose 5%-0.9% NaCl with KCl 1,000 ML IV SCH (03:02)
[2019-03-11] MEDS: hydrALAZINE 20 MG/ML SDV IVPUSH PRN (04:14)
[2019-03-11] MEDS ORDERED: Ibuprofen 600 MG Tab PO PRN (08:31)
[2019-03-11] MEDS: busPIRone 15 MG Tab PO SCH ×2 (08:48→21:00)
[2019-03-11] MEDS: levETIRAcetam Soln 500 MG/5 ML Cup PO SCH (08:49)
[2019-03-11] MEDS: FLUoxetine 10 MG Cap PO SCH (08:49)
[2019-03-11] MEDS: Pantoprazole 40 MG Tab.CR PO SCH ×2 (08:49→21:01)
[2019-03-11] MEDS: Cholecalciferol (Vitamin D3) 5,000 UNIT Tab PO SCH (08:49)
[2019-03-11] MEDS: Ibuprofen 600 MG Tab PO PRN ×2 (08:49→15:46)
[2019-03-11] MEDS: Nicotine 21 MG/24 Hr Patch TRDERM SCH (08:51)
--- NOTE | 2019-03-11 09:50 | PCM.PN ---
- General Info Date of Service: 03/11/19 Admission Dx/Problem (Free Text): Admission Diagnosis/Problem Admission Diagnosis/Problem Alcohol withdrawal seizure Subjective Update: patient states he is feeling well. He has a good appetite and has not received any benzodiazepines overnight. His had to go back to work and will be back tomorrow. - Patient Data Vitals - Most Recent: Last Vital Signs Temp 100.4 F 03/11/19 09:00 Pulse 100 03/10/19 03:43 Resp 18 03/11/19 09:00 BP 108/70 03/11/19 09:00 Pulse Ox 99 03/11/19 09:00 Weight - Most Recent: 172 lb 6.4 oz I&O - Last 24 Hours: Intake & Output 03/10/19 03/11/19 03/11/19 22:59 06:59 14:59 Intake Total 1615 2597 800 Output Total 350 1850 500 Balance 1265 747 300 Lab Results Last 24 Hours: Laboratory Results - last 24 hr 03/11/19 03/11/19 Range/Units 04:20 04:20 WBC 6.87 (4.23-9.07) K/mm3 RBC 3.96 L (4.63-6.08) M/mm3 Hgb 12.9 L (13.7-17.5) gm/L Hct 38.4 L (40.1-51.0) % MCV 97.0 H (79.0-92.2) fl MCH 32.6 H (25.7-32.2) pg MCHC 33.6 (32.2-35.5) g/dl RDW Std Deviation 47.1 H (35.1-43.9) fL Plt Count 155 L (163-337) K/mm3 MPV 10.6 (9.4-12.3) fl Neut % (Auto) 62.9 (34.0-67.9) % Lymph % (Auto) 12.1 L (21.8-53.1) % [place] % (Auto) 22.9 H (5.3-12.2) % Eos % (Auto) 1.7 (0.8-7.0) Baso % (Auto) 0.1 (0.1-1.2) % Neut # (Auto) 4.32 (1.78-5.38) K/mm3 Lymph # (Auto) 0.83 L (1.32-3.57) K/mm3 [place] # (Auto) 1.57 H (0.30-0.82) K/mm3 Eos # (Auto) 0.12 (0.04-0.54) K/mm3 Baso # (Auto) 0.01 (0.01-0.08) K/mm3 Manual Slide Review Abnormal smear Sodium 135 L (136-145) mEq/L Potassium 4.6 (3.5-5.1) mEq/L Chloride 103 (98-107) mEq/L Carbon Dioxide 25 (21-32) mEq/L Anion Gap 11.6 (5-15) BUN 7 (7-18) mg/dL Creatinine 0.7 (0.7-1.3) mg/dL Est Cr Clr Drug Dosing 151.10 mL/min Estimated GFR (MDRD) > 60 (>60) mL/min BUN/Creatinine Ratio 10.0 L (14-18) Glucose 93 (74-106) mg/dL Calcium 8.3 L (8.5-10.1) mg/dL Magnesium 1.8 (1.8-2.4) mg/dl Med Orders - Current: Current Medications Albuterol/Ipratropium (Duoneb 3.0-0.5 Mg/3 Ml) 3 ml NEB Q4H PRN PRN Reason: Shortness Of Breath/wheezing Bisacodyl (Dulcolax) 5 mg PO DAILY PRN PRN Reason: Constipation Buspirone HCl (Buspar) 7.5 mg PO BID [facility] Stop: 03/18/19 09:01 Last Admin: 03/11/19 08:48 Dose: 7.5 mg Buspirone HCl (Buspar) 15 mg PO BID [facility] Cholecalciferol (Vitamin D3) 5,000 unit PO DAILY [facility] Last Admin: 03/11/19 08:49 Dose: 5,000 unit Clonidine HCl (Catapres-Tts 3) 0.3 mg TRDERM Q7D [facility] Last Admin: 03/09/19 11:54 Dose: 0.3 mg Dextrose/Water (Dextrose 50% In Water) 50 ml IVPUSH ASDIRECTED PRN PRN Reason: Hypoglycemia Last Admin: 03/08/19 05:48 Dose: 25 ml Docusate Sodium (Colace) 100 mg PO BID PRN PRN Reason: Constipation Fluoxetine HCl (Prozac) 10 mg PO DAILY [facility] Last Admin: 03/11/19 08:49 Dose: 10 mg Hydralazine HCl (Apresoline) 20 mg IVPUSH Q4H PRN PRN Reason: Hypertension Last Admin: 03/11/19 04:14 Dose: 20 mg Hydralazine HCl (Apresoline) 20 mg IVPUSH Q4H PRN PRN Reason: Hypertension Hydromorphone HCl (Dilaudid) 0.5 mg IVPUSH Q2H PRN PRN Reason: Pain (severe 7-10) Last Admin: 03/09/19 11:27 Dose: 0.5 mg Promethazine HCl 6.25 mg/ (Sodium Chloride) 50.25 mls @ 100 mls/hr IV Q6H PRN PRN Reason: Nausea/Vomiting Midazolam HCl 50 mg/ Sodium (Chloride) 50 mls @ 1 mls/hr IV TITRATE [facility]; Protocol Last Titration: 03/09/19 07:00 Dose: 0 mg/hr, 0 mls/hr Propofol (Diprivan 100 Ml) 100 mls @ 20 mls/hr IV TITRATE [facility]; Protocol Last Titration: 03/09/19 09:05 Dose: 0 mls/hr, 0 mls/hr Potassium Chloride/Dextrose/Sod Cl (D5 Ns With 20 Meq Kcl) 1,000 mls @ 75 mls/ hr IV ASDIRECTED [facility] Last Admin: 03/11/19 03:02 Dose: 75 mls/hr Ibuprofen (Motrin) 600 mg PO Q6H PRN PRN Reason: Pain (moderate 4-6) Last Admin: 03/11/19 08:49 Dose: 600 mg Levetiracetam (Keppra) 500 mg PO BID [facility] Last Admin: 03/11/19 08:49 Dose: 500 mg Lorazepam (Ativan) 2 mg IVPUSH Q4H PRN PRN Reason: Seizures Lorazepam (Ativan) 1 mg IVPUSH Q4H PRN; Protocol PRN Reason: Anxiety Last Admin: 03/10/19 00:49 Dose: 1 mg Metoprolol Tartrate (Lopressor) 5 mg IVPUSH Q4H PRN PRN Reason: Tachycardia Metoprolol Tartrate (Lopressor) 5 mg IVPUSH Q4H PRN PRN Reason: Tachycardia Miscellaneous Information (Remove Patch) 1 ea TRDERM DAILY [facility] Last Admin: 03/11/19 08:52 Dose: 1 ea Miscellaneous Information (Remove Patch) 1 ea TRDERM Q7D [facility] Nicotine (Habitrol) 21 mg TRDERM DAILY [facility] Last Admin: 03/11/19 08:51 Dose: 21 mg Ondansetron HCl (Zofran) 4 mg IV Q6H PRN PRN Reason: Nausea/Vomiting Last Admin: 03/09/19 20:28 Dose: 4 mg Pantoprazole Sodium (Protonix) 40 mg PO Q12HR [facility] Last Admin: 03/11/19 08:49 Dose: 40 mg Polyethylene Glycol (Miralax) 17 gm PO DAILY PRN PRN Reason: Constipation Senna/Docusate Sodium (Senna Plus) 1 tab PO BID PRN PRN Reason: Constipation Thiamine HCl (Vitamin B-1) 100 mg PO BEDTIME [facility] Last Admin: 03/10/19 20:16 Dose: 100 mg Discontinued Medications Calcium Carbonate/Glycine (Tums) 1,000 mg PO BID [facility] Stop: 03/08/19 21:01 Last Admin: 03/08/19 20:14 Dose: 1,000 mg Enoxaparin Sodium (Lovenox) 30 mg SUBCUT DAILY [facility] Levetiracetam 1,000 mg/ Sodium (Chloride) 110 mls @ 400 mls/hr IV ONETIME ONE Stop: 03/06/19 14:12 Last Admin: 03/06/19 20:40 Dose: Not Given Levetiracetam 1,500 mg/ Sodium (Chloride) 115 mls @ 400 mls/hr IV ONETIME ONE Stop: 03/06/19 14:15 Last Admin: 03/06/19 20:08 Dose: Not Given Fosphenytoin Sodium 160 mg.pe/ (Sodium Chloride) 53.2 mls @ 200 mls/hr IV NOW ONE Stop: 03/06/19 14:32 Last Admin: 03/06/19 15:50 Dose: 200 mls/hr Fosphenytoin Sodium 1,440 mg. (pe/ Sodium Chloride) 128.8 mls @ 257 mls/hr IV ONETIME ONE Stop: 03/06/19 16:00 Last Admin: 08/25/19 16:22 Dose: 257 mls/hr Lactated Ringer's (Ringers, Lactated) 1,000 mls @ 999 mls/hr IV .BOLUS ONE Stop: 03/06/19 17:30 Last Admin: 03/06/19 16:34 Dose: 999 mls/hr Potassium Chloride 10 meq/ (Premix) 100 mls @ 100 mls/hr IV Q1H [facility] Stop: 03/06/19 23:59 Last Admin: 03/07/19 01:39 Dose: 100 mls/hr Potassium Chloride/Dextrose/Sod Cl (D5 Ns With 20 Meq Kcl) 1,000 mls @ 125 mls/ hr IV ASDIRECTED [facility] Last Infusion: 03/10/19 00:27 Dose: 75 mls/hr Propofol (Diprivan 100 Ml) Confirm Administered Dose 100 mls @ as directed .ROUTE .STK-MED ONE Stop: 03/06/19 19:14 Last Admin: 03/06/19 19:22 Dose: 28.8 mls/hr Piperacillin Sod/Tazobactam (Sod 4.5 gm/ Sodium Chloride) 100 mls @ 200 mls/hr IV ONETIME ONE Stop: 03/06/19 22:29 Last Admin: 03/06/19 22:05 Dose: 200 mls/hr Piperacillin Sod/Tazobactam (Sod 4.5 gm/ Sodium Chloride) 100 mls @ 25 mls/hr IV Q8H [facility] Potassium Chloride (Kcl 10 Meq In Water 100 Ml) Confirm Administered Dose 100 mls @ as directed .ROUTE .STK-MED ONE Stop: 03/06/19 20:21 Last Admin: 03/06/19 20:27 Dose: Not Given Levofloxacin/Dextrose 750 mg/ (Premix) 150 mls @ 100 mls/hr IV Q24H [facility] Last Admin: 03/08/19 22:18 Dose: 100 mls/hr Thiamine HCl 200 mg/ Sodium (Chloride) 102 mls @ 204 mls/hr IV ONETIME ONE Stop: 03/07/19 02:29 Last Admin: 03/07/19 02:04 Dose: 204 mls/hr Multivitamins/Minerals 10 ml/ (Sodium Chloride) 510 mls @ 255 mls/hr IV DAILY [facility] Stop: 03/09/19 10:59 Last Admin: 03/09/19 08:18 Dose: 255 mls/hr Magnesium Sulfate 2 gm/ Premix 50 mls @ 25 mls/hr IV ONETIME ONE Stop: 03/07/19 05:47 Last Admin: 03/07/19 04:37 Dose: 25 mls/hr Piperacillin Sod/Tazobactam (Sod 4.5 gm/ Sodium Chloride) 100 mls @ 25 mls/hr IV Q8H [facility] Last Admin: 03/09/19 08:09 Dose: 25 mls/hr Potassium Chloride 10 meq/ (Premix) 100 mls @ 100 mls/hr IV Q1H [facility] Stop: 03/07/19 13:29 Last Admin: 03/07/19 14:08 Dose: 100 mls/hr Potassium Chloride 10 meq/ (Premix) 100 mls @ 100 mls/hr IV Q1H [facility] Stop: 03/08/19 13:44 Last Admin: 03/08/19 13:11 Dose: 100 mls/hr Magnesium Sulfate/Dextrose 1 (gm/ Premix) 100 mls @ 100 mls/hr IV ONETIME ONE Stop: 03/08/19 16:36 Last Admin: 03/08/19 17:27 Dose: 100 mls/hr Potassium Chloride 10 meq/ (Premix) 100 mls @ 100 mls/hr IV Q1H [facility] Stop: 03/08/19 21:44 Last Admin: 03/09/19 08:42 Dose: Not Given Magnesium Sulfate 2 gm/ Premix 50 mls @ 25 mls/hr IV ONETIME ONE Stop: 03/09/19 11:26 Last Admin: 03/09/19 09:52 Dose: 25 mls/hr Potassium Chloride 10 meq/ (Premix) 100 mls @ 100 mls/hr IV Q1H [facility] Stop: 03/09/19 15:29 Last Admin: 03/09/19 15:10 Dose: Not Given Magnesium Sulfate 4 gm/ Premix 50 mls @ 12.5 mls/hr IV ONETIME ONE Stop: 03/10/19 16:53 Last Admin: 03/10/19 13:35 Dose: 12.5 mls/hr Ibuprofen (Motrin) 600 mg PO Q6H PRN PRN Reason: Pain Insulin Human Lispro (Humalog) 0 unit SUBCUT Q6H [facility]; Protocol Last Admin: 03/10/19 05:55 Dose: Not Given Levetiracetam (Keppra) 500 mg PO BID [facility] Levetiracetam (Keppra) 1,000 mg PO BID [facility] Last Admin: 03/08/19 03:52 Dose: Not Given Levetiracetam (Keppra) 1,000 mg [id number] BID [facility] Last Admin: 03/09/19 08:12 Dose: 1,000 mg Lidocaine HCl (Lidocaine 1%) 8 ml .ROUTE .STK-MED ONE Stop: 03/06/19 16:01 Lorazepam (Ativan) 2 mg .ROUTE .STK-MED ONE Stop: 03/06/19 13:43 Lorazepam (Ativan) 2 mg .ROUTE .STK-MED ONE Stop: 03/06/19 13:50 Lorazepam (Ativan) 2 mg .ROUTE .STK-MED ONE Stop: 03/06/19 13:57 Lorazepam (Ativan) 2 mg .ROUTE .STK-MED ONE Stop: 03/06/19 14:22 Lorazepam (Ativan) 2 mg .ROUTE .STK-MED ONE Stop: 03/06/19 14:54 Pantoprazole Sodium (Protonix Iv) 40 mg IV Q12HR [facility] Last Admin: 03/10/19 08:40 Dose: 40 mg Potassium Chloride (Klor-Con M20) 60 meq PO ONETIME ONE Stop: 03/07/19 07:31 Last Admin: 03/07/19 07:36 Dose: Not Given Potassium Chloride (Klor-Con M20) 40 meq PO ONETIME ONE Stop: 03/08/19 07:33 Last Admin: 03/08/19 07:39 Dose: 40 meq Potassium Chloride (Klor-Con M20) 60 meq PO ONETIME ONE Stop: 03/10/19 12:55 Last Admin: 03/10/19 13:35 Dose: 60 meq Potassium Chloride (Klor-Con M20) 60 meq PO ONETIME ONE Stop: 03/10/19 21:01 Last Admin: 03/10/19 20:14 Dose: 60 meq Propofol (Diprivan 20 Ml) 200 mg .ROUTE .STK-MED ONE Stop: 03/06/19 16:01 Propofol (Diprivan 100 Ml) 1,000 mg .ROUTE .STK-MED ONE Stop: 03/06/19 15:20 Succinylcholine Chloride (Quelicin) 200 mg .ROUTE .STK-MED ONE Stop: 03/06/19 16:01 - Exam Quality Assessment: No: Supplemental Oxygen General: Alert, Oriented HEENT: Pupils Equal, Pupils Reactive Neck: Supple Lungs: Clear to Auscultation, Normal Respiratory Effort Cardiovascular: Regular Rate, Regular Rhythm GI/Abdominal Exam: Normal Bowel Sounds, Soft, Non-Tender, No Organomegaly, No Distention Extremities: Normal Inspection, Normal Range of Motion, Non-Tender, No Pedal Edema Skin: Warm, Dry, Intact Psy/Mental Status: Alert, Normal Affect, Normal Mood - Problem List Review Problem List Initiated/Reviewed/Updated: Yes - Plan Plan:: Assessment: Acute: Nicotine Dependence - Smokes cigarettes a pack a day - Nicotine Patch daily ETOH Related - Has not had any event since extubation - No benzodiazepines overnight - Continue Keppra 500 mg po BID Resolved: S/p Status Epilepticus - Has had hx/o alcohol related seizures in the past per family - He was seizing on his way to ED and even after he received multiple doses of Ativan in ED - Had gotten IV Keppra and Fosphenytoin - He is on Keppra 500 mg po BID and will obtain level in AM - No on IV Propofol and Versed with RASS of -4 S/p ETOH Withdrawal Symptoms - Drinks heavily with > 12 pack a day - Unclear about his last drink; GAURI is 0 - 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 - Risk factors: Chronic Alcoholism - [facility] Protocol for Ativan/Versed (mechanical ventilation) - MVI, Folic Acid and Thiamine - IV fluids for hydration S/p Hyponatremia - Na of 122-->135 S/p Hypomagnesemia/Hypokalemia - Mg of 1.5-->2-->1.7--> 1.8; K of 2.5-->2.3-->2.9-->3.5 --> 4.6 - 2/2 Poor nutritional status from Chronic Alcoholism - Regular diet just started this morning - Replete and monitor S/p Mechanical Ventilation - 2/2 Alcohol Related Status Epilepticus - Failure to Protect Airway - IV Propofol and Versed - RASS of -3 and sedation vacation with plans to extubate - IV antibiotics for possible aspiration; will be discontinued once extubated - RT to assess and treat Chronic: Chronic ETOH Dependence, and Alcohol Related Seizures Plan: He is clinically and hemodynamically stable but is still weak and feeling depressed [place] [facility] [place]/Fall Precautions Discontinue Accu-check and IV [id number] plus KCl for hydration DVT/GI Prophylaxis: PPI and SCDs SAC/Tele-psych consult SW/CM for d/c planning Additional orders as above Critical care time spent: 15 mins Updated at bedside about his clinical status, lab results and treatment plan length of stay greater than 96 hours awaiting alcohol rehabilitation placement.
[2019-03-11] MEDS: amLODIPine 5 MG Tab PO SCH (12:44)
[2019-03-11] MEDS: Thiamine 100 MG Tab PO SCH (21:01)
[2019-03-11] MEDS: levETIRAcetam 500 MG Tab PO SCH (21:01)
[2019-03-12] MEDS: LORazepam 2 MG/ML SDV IVPUSH PRN (04:35)
[2019-03-12] MEDS ORDERED: Potassium Chloride 20 MEQ Tab.ER PO ONE ×2 (07:01→10:30)
[2019-03-12] MEDS ORDERED: Magnesium Sulfate/Water 4 GM in Premix Bag 1 BAG IV ONE ×2 (07:01→10:30)
[2019-03-12] MEDS: amLODIPine 5 MG Tab PO SCH (10:02)
[2019-03-12] MEDS: Pantoprazole 40 MG Tab.CR PO SCH ×2 (10:04→20:24)
[2019-03-12] MEDS: Cholecalciferol (Vitamin D3) 5,000 UNIT Tab PO SCH (10:04)
[2019-03-12] MEDS: levETIRAcetam 500 MG Tab PO SCH ×2 (10:04→20:24)
[2019-03-12] MEDS: FLUoxetine 10 MG Cap PO SCH (10:05)
[2019-03-12] MEDS: busPIRone 15 MG Tab PO SCH ×2 (10:05→20:25)
[2019-03-12] MEDS: Nicotine 21 MG/24 Hr Patch TRDERM SCH (10:29)
--- NOTE | 2019-03-12 12:13 | PCM.DCSUM1 ---
Discharge Summary - Hospital Course HPI Initial Comments: This is a 43 yo white male with past medical hx/o Chronic alcoholism who was brought in by EMS due to generalized weakness, falls and not been eating. 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 Patient drinks heavily, about 12 pack of draft beers a day. He also smokes but no hx/o illicit drug use. Patient was up all night and by 3:30 this morning he was falling and too weak to get up per family. His family was planning to bring him over and get evaluated in ED but refused it so they called for help. EMS arrived at 1300, and as he stood up and walked near to them, he collapsed and passed out then started seizing. His episode lasted about an hour and persisted even when he made it to the ER. He received multiple Ativan for abortive seizures but it did not work. Dr. Gr asked for recommendations and I advised him to intubate patient and use Precedex, Ketamine, Versed plus Keppra/Phenytoin. Patient carries a hx/o several DUIs. He is currently not driving and does not have a driver service technician's license to operate a vehicle. His last chemical inpatient treatment was about 10 years ago in [place]. His initial work up in ED shows a CBC remarkable for RBC of 4.16, Hgb of 13.6, Hct of 37.3, MCH of 32.7, MCHC of 36.5, Platelet of 69, Neutrophils of 66%, Lymphocytes of 13%, and Monocytes of 20%. His Chemistry is significant for Na of 122, K of 2.5, Cl of 80, CO2 of 39, CA of 8.1, Mg of 1.7, Total Bilirubin of 1.5, AST/ALT of 67, and Albumin of 3.0. UDS and GAURI levels are negative. Patient had persistent seizures in ED and therefore he was intubated and placed on mechanical ventilation. Diagnosis: Stroke: No - Discharge Data Discharge Date: 03/13/19 Discharge Disposition: Home, Self-Care 01 Condition: Good - Patient Summary/Data Consults: Consultations 03/06/19 17:57 Consult to Case Management/Garage Manager [CONS] Routine Consult to Spiritual Care [CONS] Routine Respiratory Care Assess and Treatment [CONS] Routine 03/09/19 09:25 Consult to Speech Language Pathology [SANDWICH MACHINE OPERATOR Evaluation and Treatment] [CONS] Routine 03/10/19 07:47 OT Evaluation and Treatment [CONS] Routine PT Evaluation and Treatment [CONS] Routine 03/10/19 08:09 Consult for Substance Abuse [CONS] Routine 03/10/19 08:10 Consult to Physician [CONS] Routine Hospital Course: patient was intubated in the emergency room secondary to seizure. patient was placed on Keppra and didn't have a recurrence of his seizures.Patient was extubated on day 3. CIWA protocol was followed and patient did well over the next several days. Was recommended that he go to inpatient rehabilitation at [facility]. Patient was seen by Dr. Le and he started him on medication. recommendations for follow-up was special care and AA. Patient decided to discharge today and self refer to [facility] for rehab. - Patient Instructions Diet: Usual Diet as Tolerated, No Alcoholic Beverages - Discharge Plan *PRESCRIPTION DRUG MONITORING PROGRAM REVIEWED*: Not Applicable *COPY OF PRESCRIPTION DRUG MONITORING REPORT IN PATIENT YURI: Not Applicable Prescriptions/Med Rec: busPIRone [Buspar] 7.5 mg PO BID #60 tablet FLUoxetine [PROzac] 10 mg PO DAILY #30 cap levETIRAcetam [Keppra] 500 mg PO BID #60 tablet Magnesium Oxide 400 mg PO BID #28 tablet Nicotine [Habitrol] 21 mg TRDERM DAILY #30 patch Thiamine [Vitamin B-1] 100 mg PO BEDTIME #30 tablet Home Medications: Home Meds FLUoxetine [PROzac] 10 mg PO DAILY #30 cap 03/12/19 [Rx] Magnesium Oxide 400 mg PO BID #28 tablet 03/12/19 [Rx] Nicotine [Habitrol] 21 mg TRDERM DAILY #30 patch 03/12/19 [Rx] Thiamine [Vitamin B-1] 100 mg PO BEDTIME #30 tablet 03/12/19 [Rx] busPIRone [Buspar] 7.5 mg PO BID #60 tablet 03/12/19 [Rx] levETIRAcetam [Keppra] 500 mg PO BID #60 tablet 03/12/19 [Rx] Oxygen Therapy Mode: Room Air Patient Handouts: Steps to Quit Smoking Referrals: PCP,Not In Area [Primary Care Provider] - (Please establish care with a physician as soon as possible. Please schedule an appointment with them within a week. ) - Discharge Summary/Plan Comment DC Time >30 min.: Yes Discharge Summary/Plan Comment: patient decided to [facility]-up with [facility]. He has the contact information and plans for admission. - General Info Date of Service: 03/13/19 Admission Dx/Problem (Free Text: Admission Diagnosis/Problem Admission Diagnosis/Problem Alcohol withdrawal seizure Subjective Update: patient did very well overnight. He has increased his activity and he is walking regularly in the halls. He has not had any benzodiazepines in 2-3 days. - Review of Systems General: Reports: No Symptoms HEENT: Reports: No Symptoms Pulmonary: Reports: No Symptoms Cardiovascular: Reports: No Symptoms Gastrointestinal: Reports: No Symptoms Neurological: Reports: No Symptoms Psychiatric: Reports: No Symptoms - Patient Data Vitals - Most Recent: Last Vital Signs Temp 98.1 F 03/12/19 03:19 Pulse 81 03/12/19 03:19 Resp 15 03/12/19 03:19 BP 108/68 03/12/19 10:02 Pulse Ox 100 03/12/19 03:19 Weight - Most Recent: 157 lb 9.6 oz I&O - Last 24 hours: Intake & Output 03/11/19 03/12/19 03/12/19 22:59 06:59 14:59 Intake Total 2080 1999 240 Output Total 4200 Balance 2080 -2200 240 Lab Results - Last 24 hrs: Laboratory Results - last 24 hr 03/08/19 03/12/19 03/12/19 Range/Units 04:42 05:49 05:49 WBC 6.23 (4.23-9.07) K/mm3 RBC 3.94 L (4.63-6.08) M/mm3 Hgb 12.9 L (13.7-17.5) gm/L Hct 37.6 L (40.1-51.0) % MCV 95.4 H (79.0-92.2) fl MCH 32.7 H (25.7-32.2) pg MCHC 34.3 (32.2-35.5) g/dl RDW Std Deviation 45.1 H (35.1-43.9) fL Plt Count 169 (163-337) K/mm3 MPV 10.6 (9.4-12.3) fl Neut % (Auto) 61.7 (34.0-67.9) % Lymph % (Auto) 12.5 L (21.8-53.1) % [place] % (Auto) 23.4 H (5.3-12.2) % Eos % (Auto) 1.6 (0.8-7.0) Baso % (Auto) 0.3 (0.1-1.2) % Neut # (Auto) 3.84 (1.78-5.38) K/mm3 Lymph # (Auto) 0.78 L (1.32-3.57) K/mm3 [place] # (Auto) 1.46 H (0.30-0.82) K/mm3 Eos # (Auto) 0.10 (0.04-0.54) K/mm3 Baso # (Auto) 0.02 (0.01-0.08) K/mm3 Manual Slide Review Abnormal smear Sodium 136 (136-145) mEq/L Potassium 3.5 (3.5-5.1) mEq/L Chloride 101 (98-107) mEq/L Carbon Dioxide 25 (21-32) mEq/L Anion Gap 13.5 (5-15) BUN 6 L (7-18) mg/dL Creatinine 0.5 L (0.7-1.3) mg/dL Est Cr Clr Drug Dosing 194.60 mL/min Estimated GFR (MDRD) > 60 (>60) mL/min BUN/Creatinine Ratio 12.0 L (14-18) Glucose 77 (74-106) mg/dL Calcium 8.5 (8.5-10.1) mg/dL Magnesium 1.5 L (1.8-2.4) mg/dl Total Bilirubin 0.5 (0.2-1.0) mg/dL AST 132 H (15-37) U/L ALT 53 (16-63) U/L Alkaline Phosphatase 52 (46-116) U/L Total Protein 6.5 (6.4-8.2) g/dl Albumin 2.6 L (3.4-5.0) g/dl Globulin 3.9 gm/dL Albumin/Globulin Ratio 0.7 L (1-2) Levetiracetam 17.4 (10.0-40.0) ug/mL Med Orders - Current: Current Medications Albuterol/Ipratropium (Duoneb 3.0-0.5 Mg/3 Ml) 3 ml NEB Q4H PRN PRN Reason: Shortness Of Breath/wheezing Amlodipine Besylate (Norvasc) 5 mg PO DAILY [facility] Last Admin: 03/12/19 10:02 Dose: 5 mg Bisacodyl (Dulcolax) 5 mg PO DAILY PRN PRN Reason: Constipation Buspirone HCl (Buspar) 7.5 mg PO BID [facility] Stop: 03/18/19 09:01 Last Admin: 03/12/19 10:05 Dose: 7.5 mg Buspirone HCl (Buspar) 15 mg PO BID [facility] Cholecalciferol (Vitamin D3) 5,000 unit PO DAILY [facility] Last Admin: 03/12/19 10:04 Dose: 5,000 unit Dextrose/Water (Dextrose 50% In Water) 50 ml IVPUSH ASDIRECTED PRN PRN Reason: Hypoglycemia Last Admin: 03/08/19 05:48 Dose: 25 ml Docusate Sodium (Colace) 100 mg PO BID PRN PRN Reason: Constipation Fluoxetine HCl (Prozac) 10 mg PO DAILY [facility] Last Admin: 03/12/19 10:05 Dose: 10 mg Hydralazine HCl (Apresoline) 20 mg IVPUSH Q4H PRN PRN Reason: Hypertension Hydromorphone HCl (Dilaudid) 0.5 mg IVPUSH Q2H PRN PRN Reason: Pain (severe 7-10) Last Admin: 03/09/19 11:27 Dose: 0.5 mg Promethazine HCl 6.25 mg/ (Sodium Chloride) 50.25 mls @ 100 mls/hr IV Q6H PRN PRN Reason: Nausea/Vomiting Magnesium Sulfate 4 gm/ Premix 50 mls @ 12.5 mls/hr IV ONETIME ONE Stop: 03/12/19 14:29 Last Admin: 03/12/19 10:34 Dose: 12.5 mls/hr Ibuprofen (Motrin) 600 mg PO Q6H PRN PRN Reason: Pain (moderate 4-6) Last Admin: 03/11/19 15:46 Dose: 600 mg Levetiracetam (Keppra) 500 mg PO BID [facility] Last Admin: 03/12/19 10:04 Dose: 500 mg Lorazepam (Ativan) 2 mg IVPUSH Q4H PRN PRN Reason: Seizures Lorazepam (Ativan) 1 mg IVPUSH Q4H PRN; Protocol PRN Reason: Anxiety Last Admin: 03/12/19 04:35 Dose: 1 mg Magnesium Oxide (Magnesium Oxide) 400 mg PO BID [facility] Metoprolol Tartrate (Lopressor) 5 mg IVPUSH Q4H PRN PRN Reason: Tachycardia Metoprolol Tartrate (Lopressor) 5 mg IVPUSH Q4H PRN PRN Reason: Tachycardia Miscellaneous Information (Remove Patch) 1 ea TRDERM DAILY [facility] Last Admin: 03/12/19 10:30 Dose: 1 ea Miscellaneous Information (Remove Patch) 1 ea TRDERM Q7D [facility] Nicotine (Habitrol) 21 mg TRDERM DAILY [facility] Last Admin: 03/12/19 10:29 Dose: 21 mg Ondansetron HCl (Zofran) 4 mg IV Q6H PRN PRN Reason: Nausea/Vomiting Last Admin: 03/09/19 20:28 Dose: 4 mg Pantoprazole Sodium (Protonix) 40 mg PO Q12HR [facility] Last Admin: 03/12/19 10:04 Dose: 40 mg Polyethylene Glycol (Miralax) 17 gm PO DAILY PRN PRN Reason: Constipation Senna/Docusate Sodium (Senna Plus) 1 tab PO BID PRN PRN Reason: Constipation Thiamine HCl (Vitamin B-1) 100 mg PO BEDTIME [facility] Last Admin: 03/11/19 21:01 Dose: 100 mg Discontinued Medications Calcium Carbonate/Glycine (Tums) 1,000 mg PO BID [facility] Stop: 03/08/19 21:01 Last Admin: 03/08/19 20:14 Dose: 1,000 mg Clonidine HCl (Catapres-Tts 3) 0.3 mg TRDERM Q7D [facility] Last Admin: 03/09/19 11:54 Dose: 0.3 mg Enoxaparin Sodium (Lovenox) 30 mg SUBCUT DAILY [facility] Hydralazine HCl (Apresoline) 20 mg IVPUSH Q4H PRN PRN Reason: Hypertension Last Admin: 03/11/19 04:14 Dose: 20 mg Levetiracetam 1,000 mg/ Sodium (Chloride) 110 mls @ 400 mls/hr IV ONETIME ONE Stop: 03/06/19 14:12 Last Admin: 03/06/19 20:40 Dose: Not Given Levetiracetam 1,500 mg/ Sodium (Chloride) 115 mls @ 400 mls/hr IV ONETIME ONE Stop: 03/06/19 14:15 Last Admin: 03/06/19 20:08 Dose: Not Given Fosphenytoin Sodium 160 mg.pe/ (Sodium Chloride) 53.2 mls @ 200 mls/hr IV NOW ONE Stop: 03/06/19 14:32 Last Admin: 03/06/19 15:50 Dose: 200 mls/hr Fosphenytoin Sodium 1,440 mg. (pe/ Sodium Chloride) 128.8 mls @ 257 mls/hr IV ONETIME ONE Stop: 03/06/19 16:00 Last Admin: 03/06/19 16:22 Dose: 257 mls/hr Lactated Ringer's (Ringers, Lactated) 1,000 mls @ 999 mls/hr IV .BOLUS ONE Stop: 03/06/19 17:30 Last Admin: 03/06/19 16:34 Dose: 999 mls/hr Potassium Chloride 10 meq/ (Premix) 100 mls @ 100 mls/hr IV Q1H [facility] Stop: 03/06/19 23:59 Last Admin: 03/07/19 01:39 Dose: 100 mls/hr Potassium Chloride/Dextrose/Sod Cl (D5 Ns With 20 Meq Kcl) 1,000 mls @ 125 mls/ hr IV ASDIRECTED [facility] Last Infusion: 03/10/19 00:27 Dose: 75 mls/hr Midazolam HCl 50 mg/ Sodium (Chloride) 50 mls @ 1 mls/hr IV TITRATE [facility]; Protocol Last Titration: 03/09/19 07:00 Dose: 0 mg/hr, 0 mls/hr Propofol (Diprivan 100 Ml) Confirm Administered Dose 100 mls @ as directed .ROUTE .STK-MED ONE Stop: 03/06/19 19:14 Last Admin: 03/06/19 19:22 Dose: 28.8 mls/hr Propofol (Diprivan 100 Ml) 100 mls @ 20 mls/hr IV TITRATE [facility]; Protocol Last Titration: 03/09/19 09:05 Dose: 0 mls/hr, 0 mls/hr Piperacillin Sod/Tazobactam (Sod 4.5 gm/ Sodium Chloride) 100 mls @ 200 mls/hr IV ONETIME ONE Stop: 03/06/19 22:29 Last Admin: 03/06/19 22:05 Dose: 200 mls/hr Piperacillin Sod/Tazobactam (Sod 4.5 gm/ Sodium Chloride) 100 mls @ 25 mls/hr IV Q8H [facility] Potassium Chloride (Kcl 10 Meq In Water 100 Ml) Confirm Administered Dose 100 mls @ as directed .ROUTE .STK-MED ONE Stop: 03/06/19 20:21 Last Admin: 03/06/19 20:27 Dose: Not Given Levofloxacin/Dextrose 750 mg/ (Premix) 150 mls @ 100 mls/hr IV Q24H [facility] Last Admin: 03/08/19 22:18 Dose: 100 mls/hr Thiamine HCl 200 mg/ Sodium (Chloride) 102 mls @ 204 mls/hr IV ONETIME ONE Stop: 03/07/19 02:29 Last Admin: 03/07/19 02:04 Dose: 204 mls/hr Multivitamins/Minerals 10 ml/ (Sodium Chloride) 510 mls @ 255 mls/hr IV DAILY [facility] Stop: 03/09/19 10:59 Last Admin: 03/09/19 08:18 Dose: 255 mls/hr Magnesium Sulfate 2 gm/ Premix 50 mls @ 25 mls/hr IV ONETIME ONE Stop: 03/07/19 05:47 Last Admin: 03/07/19 04:37 Dose: 25 mls/hr Piperacillin Sod/Tazobactam (Sod 4.5 gm/ Sodium Chloride) 100 mls @ 25 mls/hr IV Q8H [facility] Last Admin: 03/09/19 08:09 Dose: 25 mls/hr Potassium Chloride 10 meq/ (Premix) 100 mls @ 100 mls/hr IV Q1H [facility] Stop: 03/07/19 13:29 Last Admin: 03/07/19 14:08 Dose: 100 mls/hr Potassium Chloride 10 meq/ (Premix) 100 mls @ 100 mls/hr IV Q1H [facility] Stop: 03/08/19 13:44 Last Admin: 03/08/19 13:11 Dose: 100 mls/hr Magnesium Sulfate/Dextrose 1 (gm/ Premix) 100 mls @ 100 mls/hr IV ONETIME ONE Stop: 03/08/19 16:36 Last Admin: 03/08/19 17:27 Dose: 100 mls/hr Potassium Chloride 10 meq/ (Premix) 100 mls @ 100 mls/hr IV Q1H [facility] Stop: 03/08/19 21:44 Last Admin: 03/09/19 08:42 Dose: Not Given Magnesium Sulfate 2 gm/ Premix 50 mls @ 25 mls/hr IV ONETIME ONE Stop: 03/09/19 11:26 Last Admin: 03/09/19 09:52 Dose: 25 mls/hr Potassium Chloride 10 meq/ (Premix) 100 mls @ 100 mls/hr IV Q1H [facility] Stop: 03/09/19 15:29 Last Admin: 03/09/19 15:10 Dose: Not Given Potassium Chloride/Dextrose/Sod Cl (D5 Ns With 20 Meq Kcl) 1,000 mls @ 75 mls/ hr IV ASDIRECTED [facility] Last Admin: 03/11/19 03:02 Dose: 75 mls/hr Magnesium Sulfate 4 gm/ Premix 50 mls @ 12.5 mls/hr IV ONETIME ONE Stop: 03/10/19 16:53 Last Admin: 03/10/19 13:35 Dose: 12.5 mls/hr Ibuprofen (Motrin) 600 mg PO Q6H PRN PRN Reason: Pain Insulin Human Lispro (Humalog) 0 unit SUBCUT Q6H [facility]; Protocol Last Admin: 03/10/19 05:55 Dose: Not Given Levetiracetam (Keppra) 500 mg PO BID [facility] Levetiracetam (Keppra) 1,000 mg PO BID [facility] Last Admin: 03/08/19 03:52 Dose: Not Given Levetiracetam (Keppra) 1,000 mg NGTUBE BID [facility] Last Admin: 03/09/19 08:12 Dose: 1,000 mg Levetiracetam (Keppra) 500 mg PO BID [facility] Last Admin: 03/11/19 08:49 Dose: 500 mg Lidocaine HCl (Lidocaine 1%) 8 ml .ROUTE .STK-MED ONE Stop: 03/06/19 16:01 Lorazepam (Ativan) 2 mg .ROUTE .STK-MED ONE Stop: 03/06/19 13:43 Lorazepam (Ativan) 2 mg .ROUTE .STK-MED ONE Stop: 03/06/19 13:50 Lorazepam (Ativan) 2 mg .ROUTE .STK-MED ONE Stop: 03/06/19 13:57 Lorazepam (Ativan) 2 mg .ROUTE .STK-MED ONE Stop: 03/06/19 14:22 Lorazepam (Ativan) 2 mg .ROUTE .STK-MED ONE Stop: 03/06/19 14:54 Pantoprazole Sodium (Protonix Iv) 40 mg IV Q12HR [facility] Last Admin: 03/10/19 08:40 Dose: 40 mg Potassium Chloride (Klor-Con M20) 60 meq PO ONETIME ONE Stop: 03/07/19 07:31 Last Admin: 03/07/19 07:36 Dose: Not Given Potassium Chloride (Klor-Con M20) 40 meq PO ONETIME ONE Stop: 03/08/19 07:33 Last Admin: 03/08/19 07:39 Dose: 40 meq Potassium Chloride (Klor-Con M20) 60 meq PO ONETIME ONE Stop: 03/10/19 12:55 Last Admin: 03/10/19 13:35 Dose: 60 meq Potassium Chloride (Klor-Con M20) 60 meq PO ONETIME ONE Stop: 03/10/19 21:01 Last Admin: 03/10/19 20:14 Dose: 60 meq Potassium Chloride (Klor-Con M20) 40 meq PO ONETIME ONE Stop: 03/12/19 07:02 Last Admin: 03/12/19 12:05 Dose: Not Given Potassium Chloride (Klor-Con M20) 40 meq PO ONETIME ONE Stop: 03/12/19 10:31 Last Admin: 03/12/19 10:31 Dose: 40 meq Propofol (Diprivan 20 Ml) 200 mg .ROUTE .STK-MED ONE Stop: 03/06/19 16:01 Propofol (Diprivan 100 Ml) 1,000 mg .ROUTE .STK-MED ONE Stop: 03/06/19 15:20 Succinylcholine Chloride (Quelicin) 200 mg .ROUTE .STK-MED ONE Stop: 03/06/19 16:01 - Exam Quality Assessment: Denies: Supplemental Oxygen General: Reports: Alert, Oriented HEENT: Reports: Pupils Equal, Pupils Reactive Neck: Reports: Supple Lungs: Reports: Clear to Auscultation, Normal Respiratory Effort Cardiovascular: Reports: Regular Rate, Regular Rhythm GI/Abdominal Exam: Normal Bowel Sounds, Soft, Non-Tender, No Distention Skin: Reports: Warm, Dry, Intact Neurological: Reports: No New Focal Deficit Psy/Mental Status: Reports: Alert, Normal Affect, Normal Mood
[2019-03-12] MEDS: Magnesium Oxide 400 MG Tab PO SCH ×2 (14:37→20:24)
--- NOTE | 2019-03-12 15:59 | PCM.PN ---
- General Info Date of Service: 03/12/19 Admission Dx/Problem (Free Text): Admission Diagnosis/Problem Admission Diagnosis/Problem Alcohol withdrawal seizure Subjective Update: patient states he is feeling much better. Initially he was going to go home AGAINST MEDICAL ADVICE, but I counseled him that he needed more time for both increased strength and for help with his alcohol treatment. He does request something to help him sleep. - Review of Systems General: Reports: No Symptoms HEENT: Reports: No Symptoms Pulmonary: Reports: No Symptoms. Denies: Shortness of Breath Cardiovascular: Reports: No Symptoms Gastrointestinal: Reports: No Symptoms. Denies: Abdominal Pain - Patient Data Vitals - Most Recent: Last Vital Signs Temp 98.4 F 03/12/19 13:49 Pulse 89 03/12/19 13:49 Resp 19 03/12/19 13:49 BP 121/84 03/12/19 13:49 Pulse Ox 100 03/12/19 13:49 Weight - Most Recent: 157 lb 9.6 oz I&O - Last 24 Hours: Intake & Output 03/12/19 03/12/19 03/12/19 06:59 14:59 22:59 Intake Total 2000 530 Output Total 4200 Balance -2200 530 Lab Results Last 24 Hours: Laboratory Results - last 24 hr 03/12/19 03/12/19 Range/Units 05:49 05:49 WBC 6.23 (4.23-9.07) K/mm3 RBC 3.94 L (4.63-6.08) M/mm3 Hgb 12.9 L (13.7-17.5) gm/L Hct 37.6 L (40.1-51.0) % MCV 95.4 H (79.0-92.2) fl MCH 32.7 H (25.7-32.2) pg MCHC 34.3 (32.2-35.5) g/dl RDW Std Deviation 45.1 H (35.1-43.9) fL Plt Count 169 (163-337) K/mm3 MPV 10.6 (9.4-12.3) fl Neut % (Auto) 61.7 (34.0-67.9) % Lymph % (Auto) 12.5 L (21.8-53.1) % Jenkins % (Auto) 23.4 H (5.3-12.2) % Eos % (Auto) 1.6 (0.8-7.0) Baso % (Auto) 0.3 (0.1-1.2) % Neut # (Auto) 3.84 (1.78-5.38) K/mm3 Lymph # (Auto) 0.78 L (1.32-3.57) K/mm3 Jenkins # (Auto) 1.46 H (0.30-0.82) K/mm3 Eos # (Auto) 0.10 (0.04-0.54) K/mm3 Baso # (Auto) 0.02 (0.01-0.08) K/mm3 Manual Slide Review Abnormal smear Sodium 136 (136-145) mEq/L Potassium 3.5 (3.5-5.1) mEq/L Chloride 101 (98-107) mEq/L Carbon Dioxide 25 (21-32) mEq/L Anion Gap 13.5 (5-15) BUN 6 L (7-18) mg/dL Creatinine 0.5 L (0.7-1.3) mg/dL Est Cr Clr Drug Dosing 194.60 mL/min Estimated GFR (MDRD) > 60 (>60) mL/min BUN/Creatinine Ratio 12.0 L (14-18) Glucose 77 (74-106) mg/dL Calcium 8.5 (8.5-10.1) mg/dL Magnesium 1.5 L (1.8-2.4) mg/dl Total Bilirubin 0.5 (0.2-1.0) mg/dL AST 132 H (15-37) U/L ALT 53 (16-63) U/L Alkaline Phosphatase 52 (46-116) U/L Total Protein 6.5 (6.4-8.2) g/dl Albumin 2.6 L (3.4-5.0) g/dl Globulin 3.9 gm/dL Albumin/Globulin Ratio 0.7 L (1-2) Med Orders - Current: Current Medications Albuterol/Ipratropium (Duoneb 3.0-0.5 Mg/3 Ml) 3 ml NEB Q4H PRN PRN Reason: Shortness Of Breath/wheezing Amlodipine Besylate (Norvasc) 5 mg PO DAILY [facility]ERNARDA Last Admin: 03/12/19 10:02 Dose: 5 mg Bisacodyl (Dulcolax) 5 mg PO DAILY PRN PRN Reason: Constipation Buspirone HCl (Buspar) 7.5 mg PO BID [facility] Stop: 03/18/19 09:01 Last Admin: 03/12/19 10:05 Dose: 7.5 mg Buspirone HCl (Buspar) 15 mg PO BID [facility] Cholecalciferol (Vitamin D3) 5,000 unit PO DAILY [facility] Last Admin: 03/12/19 10:04 Dose: 5,000 unit Dextrose/Water (Dextrose 50% In Water) 50 ml IVPUSH ASDIRECTED PRN PRN Reason: Hypoglycemia Last Admin: 03/08/19 05:48 Dose: 25 ml Docusate Sodium (Colace) 100 mg PO BID PRN PRN Reason: Constipation Fluoxetine HCl (Prozac) 10 mg PO DAILY [facility] Last Admin: 03/12/19 10:05 Dose: 10 mg Hydralazine HCl (Apresoline) 20 mg IVPUSH Q4H PRN PRN Reason: Hypertension Hydromorphone HCl (Dilaudid) 0.5 mg IVPUSH Q2H PRN PRN Reason: Pain (severe 7-10) Last Admin: 03/09/19 11:27 Dose: 0.5 mg Promethazine HCl 6.25 mg/ (Sodium Chloride) 50.25 mls @ 100 mls/hr IV Q6H PRN PRN Reason: Nausea/Vomiting Ibuprofen (Motrin) 600 mg PO Q6H PRN PRN Reason: Pain (moderate 4-6) Last Admin: 03/11/19 15:46 Dose: 600 mg Levetiracetam (Keppra) 500 mg PO BID [facility] Last Admin: 03/12/19 10:04 Dose: 500 mg Lorazepam (Ativan) 2 mg IVPUSH Q4H PRN PRN Reason: Seizures Magnesium Oxide (Magnesium Oxide) 400 mg PO BID [facility] Last Admin: 03/12/19 14:37 Dose: 400 mg Metoprolol Tartrate (Lopressor) 5 mg IVPUSH Q4H PRN PRN Reason: Tachycardia Metoprolol Tartrate (Lopressor) 5 mg IVPUSH Q4H PRN PRN Reason: Tachycardia Miscellaneous Information (Remove Patch) 1 ea TRDERM DAILY [facility] Last Admin: 03/12/19 10:30 Dose: 1 ea Miscellaneous Information (Remove Patch) 1 ea TRDERM Q7D [facility] Nicotine (Habitrol) 21 mg TRDERM DAILY [facility] Last Admin: 03/12/19 10:29 Dose: 21 mg Ondansetron HCl (Zofran) 4 mg IV Q6H PRN PRN Reason: Nausea/Vomiting Last Admin: 03/09/19 20:28 Dose: 4 mg Pantoprazole Sodium (Protonix) 40 mg PO Q12HR [facility] Last Admin: 03/12/19 10:04 Dose: 40 mg Polyethylene Glycol (Miralax) 17 gm PO DAILY PRN PRN Reason: Constipation Senna/Docusate Sodium (Senna Plus) 1 tab PO BID PRN PRN Reason: Constipation Thiamine HCl (Vitamin B-1) 100 mg PO BEDTIME [facility] Last Admin: 03/11/19 21:01 Dose: 100 mg Discontinued Medications Calcium Carbonate/Glycine (Tums) 1,000 mg PO BID [facility] Stop: 03/08/19 21:01 Last Admin: 03/08/19 20:14 Dose: 1,000 mg Clonidine HCl (Catapres-Tts 3) 0.3 mg TRDERM Q7D [facility] Last Admin: 03/09/19 11:54 Dose: 0.3 mg Enoxaparin Sodium (Lovenox) 30 mg SUBCUT DAILY [facility] Hydralazine HCl (Apresoline) 20 mg IVPUSH Q4H PRN PRN Reason: Hypertension Last Admin: 03/11/19 04:14 Dose: 20 mg Levetiracetam 1,000 mg/ Sodium (Chloride) 110 mls @ 400 mls/hr IV ONETIME ONE Stop: 03/06/19 14:12 Last Admin: 03/06/19 20:40 Dose: Not Given Levetiracetam 1,500 mg/ Sodium (Chloride) 115 mls @ 400 mls/hr IV ONETIME ONE Stop: 03/06/19 14:15 Last Admin: 03/06/19 20:08 Dose: Not Given Fosphenytoin Sodium 160 mg.pe/ (Sodium Chloride) 53.2 mls @ 200 mls/hr IV NOW ONE Stop: 03/06/19 14:32 Last Admin: 03/06/19 15:50 Dose: 200 mls/hr Fosphenytoin Sodium 1,440 mg. (pe/ Sodium Chloride) 128.8 mls @ 257 mls/hr IV ONETIME ONE Stop: 03/06/19 16:00 Last Admin: 03/06/19 16:22 Dose: 257 mls/hr Lactated Ringer's (Ringers, Lactated) 1,000 mls @ 999 mls/hr IV .BOLUS ONE Stop: 03/06/19 17:30 Last Admin: 03/06/19 16:34 Dose: 999 mls/hr Potassium Chloride 10 meq/ (Premix) 100 mls @ 100 mls/hr IV Q1H [facility] Stop: 03/06/19 23:59 Last Admin: 03/07/19 01:39 Dose: 100 mls/hr Potassium Chloride/Dextrose/Sod Cl (D5 Ns With 20 Meq Kcl) 1,000 mls @ 125 mls/ hr IV ASDIRECTED [facility]ERNARDA Last Infusion: 03/10/19 00:27 Dose: 75 mls/hr Midazolam HCl 50 mg/ Sodium (Chloride) 50 mls @ 1 mls/hr IV TITRATE BERNARDA; Protocol Last Titration: 03/09/19 07:00 Dose: 0 mg/hr, 0 mls/hr Propofol (Diprivan 100 Ml) Confirm Administered Dose 100 mls @ as directed .ROUTE .STK-MED ONE Stop: 03/06/19 19:14 Last Admin: 03/06/19 19:22 Dose: 28.8 mls/hr Propofol (Diprivan 100 Ml) 100 mls @ 20 mls/hr IV TITRATE BERNARDA; Protocol Last Titration: 03/09/19 09:05 Dose: 0 mls/hr, 0 mls/hr Piperacillin Sod/Tazobactam (Sod 4.5 gm/ Sodium Chloride) 100 mls @ 200 mls/hr IV ONETIME ONE Stop: 03/06/19 22:29 Last Admin: 03/06/19 22:05 Dose: 200 mls/hr Piperacillin Sod/Tazobactam (Sod 4.5 gm/ Sodium Chloride) 100 mls @ 25 mls/hr IV Q8H [facility] Potassium Chloride (Kcl 10 Meq In Water 100 Ml) Confirm Administered Dose 100 mls @ as directed .ROUTE .STK-MED ONE Stop: 03/06/19 20:21 Last Admin: 03/06/19 20:27 Dose: Not Given Levofloxacin/Dextrose 750 mg/ (Premix) 150 mls @ 100 mls/hr IV Q24H [facility] Last Admin: 03/08/19 22:18 Dose: 100 mls/hr Thiamine HCl 200 mg/ Sodium (Chloride) 102 mls @ 204 mls/hr IV ONETIME ONE Stop: 03/07/19 02:29 Last Admin: 03/07/19 02:04 Dose: 204 mls/hr Multivitamins/Minerals 10 ml/ (Sodium Chloride) 510 mls @ 255 mls/hr IV DAILY [facility] Stop: 03/09/19 10:59 Last Admin: 03/09/19 08:18 Dose: 255 mls/hr Magnesium Sulfate 2 gm/ Premix 50 mls @ 25 mls/hr IV ONETIME ONE Stop: 03/07/19 05:47 Last Admin: 03/07/19 04:37 Dose: 25 mls/hr Piperacillin Sod/Tazobactam (Sod 4.5 gm/ Sodium Chloride) 100 mls @ 25 mls/hr IV Q8H [facility] Last Admin: 03/09/19 08:09 Dose: 25 mls/hr Potassium Chloride 10 meq/ (Premix) 100 mls @ 100 mls/hr IV Q1H [facility] Stop: 03/07/19 13:29 Last Admin: 03/07/19 14:08 Dose: 100 mls/hr Potassium Chloride 10 meq/ (Premix) 100 mls @ 100 mls/hr IV Q1H [facility] Stop: 03/08/19 13:44 Last Admin: 03/08/19 13:11 Dose: 100 mls/hr Magnesium Sulfate/Dextrose 1 (gm/ Premix) 100 mls @ 100 mls/hr IV ONETIME ONE Stop: 03/08/19 16:36 Last Admin: 03/08/19 17:27 Dose: 100 mls/hr Potassium Chloride 10 meq/ (Premix) 100 mls @ 100 mls/hr IV Q1H [facility] Stop: 03/08/19 21:44 Last Admin: 03/09/19 08:42 Dose: Not Given Magnesium Sulfate 2 gm/ Premix 50 mls @ 25 mls/hr IV ONETIME ONE Stop: 03/09/19 11:26 Last Admin: 03/09/19 09:52 Dose: 25 mls/hr Potassium Chloride 10 meq/ (Premix) 100 mls @ 100 mls/hr IV Q1H [facility] Stop: 03/09/19 15:29 Last Admin: 03/09/19 15:10 Dose: Not Given Potassium Chloride/Dextrose/Sod Cl (D5 Ns With 20 Meq Kcl) 1,000 mls @ 75 mls/ hr IV ASDIRECTED [facility] Last Admin: 03/11/19 03:02 Dose: 75 mls/hr Magnesium Sulfate 4 gm/ Premix 50 mls @ 12.5 mls/hr IV ONETIME ONE Stop: 03/10/19 16:53 Last Admin: 03/10/19 13:35 Dose: 12.5 mls/hr Magnesium Sulfate 4 gm/ Premix 50 mls @ 12.5 mls/hr IV ONETIME ONE Stop: 03/12/19 14:29 Last Admin: 03/12/19 10:34 Dose: 12.5 mls/hr Ibuprofen (Motrin) 600 mg PO Q6H PRN PRN Reason: Pain Insulin Human Lispro (Humalog) 0 unit SUBCUT Q6H [facility]; Protocol Last Admin: 03/10/19 05:55 Dose: Not Given Levetiracetam (Keppra) 500 mg PO BID [facility] Levetiracetam (Keppra) 1,000 mg PO BID [facility] Last Admin: 03/08/19 03:52 Dose: Not Given Levetiracetam (Keppra) 1,000 mg NGTUBE BID [facility] Last Admin: 03/09/19 08:12 Dose: 1,000 mg Levetiracetam (Keppra) 500 mg PO BID [facility] Last Admin: 03/11/19 08:49 Dose: 500 mg Lidocaine HCl (Lidocaine 1%) 8 ml .ROUTE .STK-MED ONE Stop: 03/06/19 16:01 Lorazepam (Ativan) 1 mg IVPUSH Q4H PRN; Protocol PRN Reason: Anxiety Last Admin: 03/12/19 04:35 Dose: 1 mg Lorazepam (Ativan) 2 mg .ROUTE .STK-MED ONE Stop: 03/06/19 13:43 Lorazepam (Ativan) 2 mg .ROUTE .STK-MED ONE Stop: 03/06/19 13:50 Lorazepam (Ativan) 2 mg .ROUTE .STK-MED ONE Stop: 03/06/19 13:57 Lorazepam (Ativan) 2 mg .ROUTE .STK-MED ONE Stop: 03/06/19 14:22 Lorazepam (Ativan) 2 mg .ROUTE .STK-MED ONE Stop: 03/06/19 14:54 Pantoprazole Sodium (Protonix Iv) 40 mg IV Q12HR [facility] Last Admin: 03/10/19 08:40 Dose: 40 mg Potassium Chloride (Klor-Con M20) 60 meq PO ONETIME ONE Stop: 03/07/19 07:31 Last Admin: 03/07/19 07:36 Dose: Not Given Potassium Chloride (Klor-Con M20) 40 meq PO ONETIME ONE Stop: 03/08/19 07:33 Last Admin: 03/08/19 07:39 Dose: 40 meq Potassium Chloride (Klor-Con M20) 60 meq PO ONETIME ONE Stop: 03/10/19 12:55 Last Admin: 03/10/19 13:35 Dose: 60 meq Potassium Chloride (Klor-Con M20) 60 meq PO ONETIME ONE Stop: 03/10/19 21:01 Last Admin: 03/10/19 20:14 Dose: 60 meq Potassium Chloride (Klor-Con M20) 40 meq PO ONETIME ONE Stop: 03/12/19 07:02 Last Admin: 03/12/19 12:05 Dose: Not Given Potassium Chloride (Klor-Con M20) 40 meq PO ONETIME ONE Stop: 03/12/19 10:31 Last Admin: 03/12/19 10:31 Dose: 40 meq Propofol (Diprivan 20 Ml) 200 mg .ROUTE .STK-MED ONE Stop: 03/06/19 16:01 Propofol (Diprivan 100 Ml) 1,000 mg .ROUTE .STK-MED ONE Stop: 03/06/19 15:20 Succinylcholine Chloride (Quelicin) 200 mg .ROUTE .STK-MED ONE Stop: 03/06/19 16:01 - Exam Quality Assessment: No: Supplemental Oxygen General: Alert, Oriented HEENT: Pupils Equal, Pupils Reactive Neck: Supple Lungs: Clear to Auscultation, Normal Respiratory Effort Cardiovascular: Regular Rate, Regular Rhythm GI/Abdominal Exam: Normal Bowel Sounds, Soft, Non-Tender, No Organomegaly, No Distention Extremities: Normal Inspection, Normal Range of Motion, Non-Tender, No Pedal Edema Skin: Warm, Dry, Intact Psy/Mental Status: Alert, Normal Affect, Normal Mood - Problem List Review Problem List Initiated/Reviewed/Updated: Yes - My Orders Last 24 Hours: My Active Orders 03/12/19 11:15 Magnesium Oxide 400 mg PO BID 03/12/19 12:12 Ready for Discharge [RC] PER UNIT ROUTINE - Plan Plan:: Assessment: Acute: Nicotine Dependence - Smokes cigarettes a pack a day - Nicotine Patch daily ETOH Related - Has not had any event since extubation - No benzodiazepines overnight - Continue Keppra 500 mg po BID - weakness secondary to his intubation and prolonged bedrest. Continue strength training. Hypomagnesemia - Mg of 1.5-->2-->1.7--> 1.8-->1.5 - replete and monitor. Resolved: S/p Status Epilepticus - Has had hx/o alcohol related seizures in the past per family - He was seizing on his way to ED and even after he received multiple doses of Ativan in ED - Had gotten IV Keppra and Fosphenytoin - He is on Keppra 500 mg po BID and will obtain level in AM - No on IV Propofol and Versed with RASS of -4 S/p ETOH Withdrawal Symptoms - Drinks heavily with > 12 pack a day - Unclear about his last drink; GAURI is 0 - 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 - Risk factors: Chronic Alcoholism - [facility] Protocol for Ativan/Versed (mechanical ventilation) - MVI, Folic Acid and Thiamine - IV fluids for hydration S/p Hyponatremia - Na of 122-->135 S/p Hypokalemia - K of 2.5-->2.3-->2.9-->3.5 --> 4.6 - 2/2 Poor nutritional status from Chronic Alcoholism - Regular diet just started this morning - Replete and monitor S/p Mechanical Ventilation - 2/2 Alcohol Related Status Epilepticus - Failure to Protect Airway - IV Propofol and Versed - RASS of -3 and sedation vacation with plans to extubate - IV antibiotics for possible aspiration; will be discontinued once extubated - RT to assess and treat Chronic: Chronic ETOH Dependence, and Alcohol Related Seizures Plan: He is clinically and hemodynamically stable but is still weak and feeling depressed Transfer to [facility] [place] without Tele Seizure/Fall Precautions Discontinue Accu-check and IV D5WNS plus KCl for hydration DVT/GI Prophylaxis: PPI and SCDs SAC/Tele-psych consult SW/CM for d/c planning Additional orders as above Critical care time spent: 15 mins Updated at bedside about his clinical status, lab results and treatment plan length of stay greater than 96 hours awaiting alcohol rehabilitation placement.
[2019-03-12] MEDS: Thiamine 100 MG Tab PO SCH (20:24)
[2019-03-12] MEDS ORDERED: Melatonin 3 MG Tab PO SCH (21:00)
[2019-03-13] MEDS: Magnesium Oxide 400 MG Tab PO SCH (09:02)
[2019-03-13] MEDS: levETIRAcetam 500 MG Tab PO SCH (09:02)
[2019-03-13] MEDS: Cholecalciferol (Vitamin D3) 5,000 UNIT Tab PO SCH (09:03)
[2019-03-13] MEDS: Nicotine 21 MG/24 Hr Patch TRDERM SCH (09:03)
[2019-03-13] MEDS: amLODIPine 5 MG Tab PO SCH (09:03)
[2019-03-13] MEDS: FLUoxetine 10 MG Cap PO SCH (09:03)
[2019-03-13] MEDS: busPIRone 15 MG Tab PO SCH (09:03)
[2019-03-13] MEDS: Pantoprazole 40 MG Tab.CR PO SCH (09:04)
--- NOTE | 2019-03-14 12:52 | CONS ---
CONSULTING PHYSICIAN: Omar Le MD DATE OF CONSULTATION: 03/11/2019 Site where the services are provided are [facility] in [place], [place]. Site where the services are provided from our office is in [facility]. Length of service for this 60-minute inpatient telemedicine event is 60 minutes. IDENTIFICATION: The patient is a 43-year-old male, who is admitted to the inpatient MICU at [facility]. He is seen for psychiatric consultation per the request of staff attending, Dr. Baires, and his treatment team. CHIEF COMPLAINT: "I just drank too much for too long." HISTORY OF PRESENT ILLNESS: The patient is a 43-year-old male, who was admitted to the inpatient MICU at [facility] for seizures in the face of alcohol withdrawal. He was initially intubated and then once he was medically stabilized, he was extubated, and he states that he had been drinking about "a 12-pack a day" and notes "my finally had enough. I just don't remember much after that." He goes on to note "they are working on to get me in the treatment. My is really supporting me," and he notes she does feel that he has a drinking problem and wants to get this addressed. He is looking forward to getting medically stabilized and getting into treatment. He does state in addition to his alcohol addiction "I do have depression and really bad anxiety" and is stating that he has been struggling with the depression and anxiety "for like 5 or 6 years" at this point. He is wanting to get something done to help him with his depression and anxiety in addition to getting treatment for his alcohol dependence. He is alert and oriented x3. He denies that he is suicidal or homicidal. He denies any psychotic, delusional, or paranoid symptoms. He denies any other illicit substance use complicating his clinical picture prior to admission. MEDICATIONS AT TIME OF ADMISSION: None. ALLERGIES: No known drug allergies. PAST MEDICAL HISTORY: Withdrawal seizures. REVIEW OF SYSTEMS: Aside from neuro, all other major organ systems are negative at this point in time for acute difficulties or complications. FAMILY PSYCHIATRIC AND CD HISTORY: The patient reports mother has a history of alcoholism. PAST PSYCHIATRIC AND CD HISTORY: The patient denies any previous psychiatric hospitalization, reports one chemical dependency treatment in the past and it is unclear whether he completed the treatment or not. He states his longest sobriety has been for about 1 year. He has gone to AA in the past with mixed results per his report. He denies that he had previous suicide attempts, self-injurious behaviors, or eating disorder history. He denies any past psychiatric medication history. SOCIAL HISTORY: The patient [place], [place] is the third of 3 siblings, having 2 older step brothers. The patient's parents were throughout his childhood and adolescence, but the patient states his mother when he was 19 years of age. Father worked in the [employer]. Mother worked at the [employer]. The patient's highest level of education is 12th grade. He works in [employer] and also sometimes at the [employer]. He is twice, once. Current marriage has been for 4 years. He has 1 son from his first marriage, 19 years of age. He lives in [place], [place], when he is not in the hospital. 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 The patient denies any prior service or current legal difficulties. He is AT[employer] in terms of his susanne formation. He enjoys spending time with his dogs and going for walks with his dogs and with his . MENTAL STATUS EXAMINATION: The patient is a 43-year-old soft-spoken white male in no apparent distress. Speech is of regular rate and rhythm. The patient is cognitively oriented x3. Psychomotor activity is within normal limits. There is no abnormal motor movements or tics observed. Gait and station are not observed. This patient is in bed during the course of the inpatient consult. Mood is depressed and anxious. Affect is consistent with stated mood, cooperative, but somewhat restricted and subdued. There is no behavioral or stated evidence of acute suicidal or homicidal ideation or acute psychotic, delusional, or paranoid symptoms. Thought processes are organized. There are no manic symptoms or loose associations evident. Judgment and insight appear unimpaired at this point in time. Motivation for help is good. VITALS: 146/73, 83, 16, 99.6 degrees. IMPRESSION: [place] I: 1. Alcohol dependence, F10.20. 2. Major depressive disorder, F32.2. 3. Suspected generalized anxiety disorder, F11.1. [place] II: None. [place] III: History of withdrawal seizures. [place] IV: Severe. [place] V: 55. PLAN: 1. Sobriety. 2. Begin trial of Prozac 10 mg q.a.m. to help with symptoms of depression and anxiety. 3. Begin trial of BuSpar 7.5 mg b.i.d. x7 days increasing to 15 mg b.i.d. thereafter to help with anxiety reduction. 4. Folic acid supplementation. 5. Thiamine supplementation. 6. Ativan per [facility] protocol. 7. Librium p.r.n. for symptoms of withdrawal. 8. Recommend Topamax 25-50 mg b.i.d. while the patient is on unit for seizure prophylaxis and also for anxiety reduction. 9. AA rep to visit the patient while on unit. 10.Pastoral guidance. 11.We will continue to follow the patient on an as-needed basis while he remains on the inpatient MICU at [facility]. 12.We will follow up with the patient sooner if any complications in the interim. 13.Recommend that when the patient is medically stabilized he is transferred to inpatient CD for treatment for his alcohol dependence. 14.Recommend the patient follow up with Outpatient Psychiatry once he is medically stabilized and completes treatment to assess his overall function and efficacy of his newly initiated psychiatric medication regimen. 15.Crisis plan is in place. ABIMAEL /[id number]
[2019-03-18] MEDS ORDERED: busPIRone 15 MG Tab PO SCH (21:00)
== END 2019-03-13 10:23 | disposition home or self-care (01) | DRG 101 ==
LOC: JD.ED 13:39 → JD.ICU 17:20 → JD.MS 03-11 13:49
PROVIDERS: ADMIT Internal Medicine; ATTEND Internal Medicine
PROC: HZ2ZZZZ Detoxification Services for Substance Abuse Treatment (ICD-10-PCS; principal; 2019-03-06)
PROC: 0BH17EZ Insertion of Endotracheal Airway into Trachea, Via Natural or Artificial Opening (ICD-10-PCS; 2019-03-06)
PROC: 5A1945Z Respiratory Ventilation, 24-96 Consecutive Hours (ICD-10-PCS; 2019-03-06)
DX: G40.501 Epileptic seizures related to external causes, not intractable, with status epilepticus (principal); E87.1 Hypo-osmolality and hyponatremia; F10.239 Alcohol dependence with withdrawal, unspecified; F32.2 Major depressive disorder, single episode, severe without psychotic features; R53.1 Weakness; F17.210 Nicotine dependence, cigarettes, uncomplicated; E83.42 Hypomagnesemia; E83.51 Hypocalcemia; F41.1 Generalized anxiety disorder; E87.6 Hypokalemia; Z99.81 Dependence on supplemental oxygen
CPT/HCPCS: 31500; 36415; 36600; 51702; 70450; 70450-26; 71045; 71045-26; 80048; 80053; 80177; 80306; 82306; 82607; 82746; 82803; 82962; 83735; 85007; 85025; 85027; 85610; 87086; 92610-GN; 94002; 94003; 94150; 96365; 96366; 96368; 96375; 97110-GO; 97112-GP; 97116-GP; 97162-GP; 97166-GO; 97530-GO; 99285; 99291-25; 99292; A9270-GY; C9113; G0480; J0330; J0360; J1170; J1953; J1956; J2001; J2060; J2250; J2405; J2543; J2704; J3411; J3475; J3480; J7030; J7040; J7050; J7060; J7120; Q2009; Q3014